=== PATIENT | male | born 1955 | race Caucasian/White ===

== ENCOUNTER 2022-01-07 09:11 | Inpatient (IN) | payer MEDICARE, SELFPAY ==
[2022-01-07] VITALS (10 sets, daily range): BP systolic 123–187; BP diastolic 63–96; PULSE 101–125; RESP 16–20; TEMP 36.8–37.4; O2SAT 93–97; BMI 28.0; BMI 27.1
--- NOTE | 2022-01-07 09:21 | HMH.EDEXTP ---
ED Disposition Clinical Impression: Gangrene of toe of right foot, Lactic acid acidosis, Cellulitis of foot associated with diabetes mellitus Osteomyelitis Qualifiers: Osteomyelitis type: unspecified type Osteomyelitis location: foot Laterality: right Qualified Code(s): M86.9 - Osteomyelitis, unspecified Diabetes Qualifiers: Diabetes mellitus type: other specified (including MERVAT) Diabetes mellitus alf insulin use: without exterminator termite use Diabetes mellitus complication status: with other specified complication Qualified Code(s): E13.69 - Other specified diabetes mellitus with other specified complication Sepsis Qualifiers: Sepsis type: sepsis due to unspecified organism Sepsis acute organ dysfunction status: without acute organ dysfunction Qualified Code(s): A41.9 - Sepsis, unspecified organism Disposition: Admitted As Inpatient Condition on Discharge: Serious Referrals: Provider,Referral, MD [Primary Care Provider] - - Critical Care Critical Care Time: Yes Attestation: On , the high probability of a clinically significant, sudden or life threatening deterioration of the following system(s) required my full and direct attention, intervention and personal management. The time I documented below is in addition to time spent performing reported procedures but includes the following listed in this critical care notation. Total Critical Care Time: 35 Vital system(s) involved:: Metabolic Failure My critical care processes included: Assessment & monitoring of V/S, Initial and Re-exams, Data Review/Interpretation, Coordinating Care, Medication Orders and management, Documentation Medical Decision Making - Medical Records Medical records reviewed: Yes: I reviewed the patient's medical records. - Darshan Inquiry Pt receiving controlled substance: No Vital Signs: 01/07/22 09:11 01/07/22 10:00 Temperature 98.3 F Temperature Source Oral Pulse Rate 117 H Pulse Rate [Brachial] 120 H Respiratory Rate 20 18 Blood Pressure 132/67 Blood Pressure [Right Arm] 154/87 H Blood Pressure Mean 88 Blood Pressure Mean [Right Arm] 109 Blood Pressure Source [Right Arm] Automatic Cuff 02 Sat by Pulse Oximetry 97 96 Oxygen Delivery Method Room Air Room Air - Lab Data Lab results reviewed: Yes: I reviewed the patient's lab results. Lab Results 01/07/22 09:30: WBC 25.2 H*, RBC 5.59, Hgb 16.8, Hct 52.9 H, MCV 94.5 H, MCH 30.1, MCHC 31.8, RDW 12.8, Plt Count 331, MPV 8.5, Neut % (Auto) 91.1 H, Lymph % (Auto) 3.1 L, [place] % (Auto) 5.3, Eos % (Auto) 0.2, Baso % (Auto) 0.4, Neut # (Auto) 23.0 H, Lymph # (Auto) 0.8, [place] # (Auto) 1.3 H, Eos # (Auto) 0.1, Baso # (Auto) 0.1 01/07/22 09:30: Sodium 130 L, Potassium 3.4 L, Chloride 92 L, Carbon Dioxide 16 L, Anion Gap 25.4 H, BUN 12, Creatinine 0.70, Estimated Creat Clear 109, Estimated GFR 113, Est GFR ( Amer) 137, Glucose 289 H, Calcium 9.4, Total Bilirubin 1.0, AST 24, ALT 22, Alkaline Phosphatase 145 H, Total Protein 7.5, Albumin 4.0, Globulin 3.5 H, Albumin/Globulin Ratio 1.1 01/07/22 09:30: Lactate 5.4 H Result diagrams: 01/07/22 09:30 01/07/22 09:30 Orders (Tests/Meds): ED MEDICATIONS Generic Name Dose Route Start Last Admin Trade Name Freq PRN Reason Stop Dose Admin Clindamycin Phosphate 900 mg in 50 mls @ 100 mls/hr 01/07/22 09:24 01/07/22 09:39 Clindamycin 900mg/50ml D5w Premix IV 01/21/22 09:23 100 mls/hr Q6H RONALD Administration Vancomycin/PEG/NADA/Lysine/Water 1.75 gm in 350 mls @ 175 mls/hr 01/07/22 09:45 01/07/22 10:04 Vancomycin 1.75gm/350ml (Peg) Premix IV 01/07/22 11:44 175 mls/hr ONCE ONE Administration Sodium Chloride 1,000 mls @ 999 mls/hr 01/07/22 10:15 Sod Chlor 0.9% 1000ml Bag IV 01/07/22 11:15 .Q1H1M RONALD Sodium Chloride 3,130 mls @ 1,565 mls/hr 01/07/22 10:06 01/07/22 10:12 Sod Chlor 0.9% 1000ml Bag 30 ml/kg infuse over 2 hr (3130 ml) 01/07/22 12:05 1,565 mls/hr IV Administration .[facility]H [facility]
--- NOTE | 2022-01-07 09:24 | XR_ITS ---
PROCEDURE INFORMATION: Exam: XR Right Foot Exam date and time: 01/07/2022 9:29 AM Age: 66 years old Clinical indication: Swelling, leg or foot; Additional info: Gangrene, in 2nd toe, black and bone exposed and open infection TECHNIQUE: Imaging protocol: Radiologic exam of the Right foot. Views: 3 or more views. COMPARISON: No relevant prior studies available. FINDINGS: Bones/joints: The 2nd distal phalanx is almost entirely eroded, consistent with acute osteomyelitis. There is also some periosteal reaction about the 2nd proximal phalanx. No acute fracture or malalignment. Moderate 1st MTP joint degenerative changes. Osteopenia. Calcaneal enthesopathy. Soft tissues: Normal. IMPRESSION: 1. There is evidence of acute osteomyelitis involving the 2nd distal phalanx, which is almost completely eroded. 2. Periosteal reaction about the 2nd proximal phalanx may also reflect some early changes of osteomyelitis.
--- NOTE | 2022-01-07 09:36 | PC.NURSE ---
xray at BS
--- NOTE | 2022-01-07 09:37 | PC.NURSE ---
XR AT BEDSIDE
--- NOTE | 2022-01-07 09:37 | PC.NURSE ---
called pharmacy regarding vanc dosing
--- NOTE | 2022-01-07 09:47 | PC.NURSE ---
PT MEDICATED PER EDY DEL REAL PROVIDED. FAMILY AT BEDSIDE. NO NEEDS AT THIS TIME
[2022-01-07 09:58] LABS: Basophils # 0.1 K/mm3 (0-0.2); Basophils % 0.4 % (0.1-2.0); Eosinophils # 0.1 K/mm3 (0.0-0.4); Eosinophils % 0.2 % (0.1-12.0); Hematocrit 52.9 % (42.0-52.0); Hemoglobin 16.8 g/dL (14.1-18.0); Lymphocytes # 0.8 K/mm3 (0.7-4.5); Lymphocytes % 3.1 % (10-50); Mean Corpuscular HGB Conc 31.8 g/dL (31.8-35.4); Mean Corpuscular Hemoglobin 30.1 pg (27.0-31.2); Mean Corpuscular Volume 94.5 fl (80-94); Mean Platelet Volume 8.5 fl (7.4-10.4); Monocytes # 1.3 K/mm3 (0.1-1.0); Monocytes % 5.3 % (1.7-9.3); Neutrophils % 91.1 % (37.0-80.0); Platelet Count 331 K/mm3 (142-424); Red Blood Count 5.59 M/mm3 (4.60-6.20); Red Cell Distribution Width 12.8 % (11.5-17.5); White Blood Count 25.2 K/mm3 (4.8-10.8)
[2022-01-07 10:00] LABS: Alanine Aminotransferase 22 U/L (12-78); Albumin/Globulin Ratio 1.1 (1.1-1.8); Alkaline Phosphatase 145 U/L (38-126); Anion Gap 25.4 mEq/L (5-15); Aspartate Amino Transferase 24 U/L (17-59); Blood Urea Nitrogen 12 mg/dl (9-20); Calcium 9.4 mg/dl (8.4-10.2); Carbon Dioxide 16 mmol/L (22.0-30.0); Chloride 92 mmol/L (98-107); Creatinine Clearance Estimated 109 mL/min (50-200); Estimated Glomerular Filt Rate 113 ml/min (>60); GFR (African American) 137 ML/MIN (>60); Globulin 3.5 g/dL (1.3-3.2); Glucose 289 mg/dl (74-100); Potassium 3.4 mmoL/L (3.5-5.1); Sodium 130 mmol/L (136-145); Total Protein,Serum 7.5 g/dl (6.3-8.2)
--- NOTE | 2022-01-07 10:02 | PC.NURSE ---
checked on pt a this time, pt states no needs at this time. Pt son at BS. will continue to monitor.
[2022-01-07 10:03] LABS: Lactic Acid 5.4 mmol/L (0.7-2.1)
--- NOTE | 2022-01-07 10:03 | PC.NURSE ---
notified ER of pt critical lactic acid result.
--- NOTE | 2022-01-07 10:06 | PC.NURSE ---
notified ER MD of pt need of sepsis IVF bolus of 30mL/kg. ER MD gave verbal order for IVF sepsis bolus per protocol.
--- NOTE | 2022-01-07 10:12 | PC.NURSE ---
contacted lab to check on status of CBC result, spoke with dora states specimen is being rerun but should be finished and resulted soon.
[2022-01-07 10:15] LABS: MANUAL DIFFERENTIAL MANUAL DIFFERENTIAL (MANUAL DIFF)
--- NOTE | 2022-01-07 10:15 | PC.NURSE ---
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
--- NOTE | 2022-01-07 10:17 | PC.NURSE ---
1012 SEPSIS BOLUS STARTED
--- NOTE | 2022-01-07 10:26 | PC.NURSE ---
Tam GORDILLO SPEAKING WITH DR. VARELA
[2022-01-07 10:27] LABS: Lymphocytes % 7 % (10-50); Monocytes % 7 % (2-9); Neutrophils % 86 % (42-76); Total Cells Counted 100
[2022-01-07 10:29] LABS: Platelet Estimate Normal
--- NOTE | 2022-01-07 10:31 | PC.NURSE ---
notified ER pt will need sepsis tissue reperfussion assessment
--- NOTE | 2022-01-07 10:36 | PC.NURSE ---
notified boiling house oiler of admission.
[2022-01-07 10:46] LABS: INR 1.21 (0.9-1.1); Prothrombin Time 13.5 seconds (10.1-12.5)
[2022-01-07 10:47] LABS: Hemoglobin A1C 9.4 % (4.0-6.0)
--- NOTE | 2022-01-07 11:06 | PC.NURSE ---
per lab staff is will approx 105 minutes until result of covid swab, states they are only able to run 1 test at a time.
--- NOTE | 2022-01-07 11:16 | HMH.PHACONS ---
- Pharmacy Consult Date: 01/07/22 Time: 11:16 Referring provider: DR. STALEY Reason for Consult:: VANCOMYCIN DOSING Allergies and ADEs:: Allergies Allergy/AdvReac Type Severity Reaction Status Date / Time Penicillins Allergy Unknown Unknown Verified 01/07/22 09:54 allergy reaction Home Medications:: Home Medications Medication Instructions Recorded Confirmed Type No Known Home Medications 01/07/22 01/07/22 History Height: 1.93 m Weight: 104.326 kg Laboratory Results:: Laboratory Results - last 24 hr 01/07/22 09:30: WBC 25.2 H*, RBC 5.59, Hgb 16.8, Hct 52.9 H, MCV 94.5 H, MCH 30.1, MCHC 31.8, RDW 12.8, Plt Count 331, MPV 8.5, Neut % (Auto) 91.1 H, Lymph % (Auto) 3.1 L, [place] % (Auto) 5.3, Eos % (Auto) 0.2, Baso % (Auto) 0.4, Neut # (Auto) 23.0 H, Lymph # (Auto) 0.8, [place] # (Auto) 1.3 H, Eos # (Auto) 0.1, Baso # (Auto) 0.1, Total Counted 100, Neutrophils % (Manual) 86 H, Lymphocytes % (Manual) 7 L, Monocytes % (Manual) 7, Platelet Estimate Normal 01/07/22 09:30: PT 13.5 H, INR 1.21 H, APTT 36.0 H 01/07/22 09:30: Sodium 130 L, Potassium 3.4 L, Chloride 92 L, Carbon Dioxide 16 L, Anion Gap 25.4 H, BUN 12, Creatinine 0.70, Estimated Creat Clear 109, Estimated GFR 113, Est GFR ( Amer) 137, Glucose 289 H, Calcium 9.4, Total Bilirubin 1.0, AST 24, ALT 22, Alkaline Phosphatase 145 H, Total Protein 7.5, Albumin 4.0, Globulin 3.5 H, Albumin/Globulin Ratio 1.1 01/07/22 09:30: Lactate 5.4 H 01/07/22 09:30: Hemoglobin A1c 9.4 H Assessment and Plan - Assessment and plan all Dx Assessment and Plan for all problems:: Age: 66 yo Serum creatinine: 1 mg/dL Height: 76.0 Inches Weight (kg): 104 Assessment: IBW (kg): 86.80 Dosing wt(kg): 104 Estimated Creatinine clearance (ml/min): 90.4 CRCL method: Cockcroft and Gault using ibw(default). Drug selected: Vancomycin Loading dose (mg): 0 Vd (liters): 83.2 (factor used: 0.8 L/kg) Pipo (hr-1): 0.079 Half life (hrs): 8.77 Recommended dose: 1750 mg Interval: 12 hrs Infusion time (hrs): 2.0 Predicted peak (mcg/mL): 31.8 Predicted trough (mcg/mL): 14.43 Total body weight is being used for vancomycin dosing. Recommendations: Give Vancomycin 1750 mg q 12 hrs with an expected Cpeak of 31.8 mcg/ml and an expected Ctrough of 14.43 mcg/ml. ----Vanco only - ignore for aminoglycosides----- CLvanco= 6.57 L/hr AUC 0-24 /KEEGAN Data: KEEGAN 0.5 mcg/mL: AUC/KEEGAN: 1065.4 KEEGAN 1.0 mcg/mL: AUC/KEEGAN: 532.7 --------- KEEGAN 1.5 mcg/mL: AUC/KEEGAN: 355.1 KEEGAN 2.0 mcg/mL: AUC/KEEGAN: 266.4 Thank you for the consult.
--- NOTE | 2022-01-07 11:16 | PC.NURSE ---
notified warehouse processor of staff waiting on covid swab result at this time, approx result time in swab is less than 105 minutes at this time. Per lab staff short supply covid swab kits are using other kits than take longer time to result. will continue to monitor.
--- NOTE | 2022-01-07 11:21 | PC.NURSE ---
checked on pt at this time, pt given glass of water per his request (okayed per LIBRA GORDILLO). will continue to monitor
--- NOTE | 2022-01-07 11:51 | PC.NURSE ---
updated pt on POC -waiting on covid swab result to get him upstairs to assigned room
--- NOTE | 2022-01-07 12:01 | PC.NURSE ---
REPORT GIVEN TO Eloina BECKER RN
--- NOTE | 2022-01-07 12:14 | PC.NURSE ---
DR. VARELA AT BEDSIDE
--- NOTE | 2022-01-07 12:21 | XR_ITS ---
PROCEDURE INFORMATION: Exam: XR Chest Exam date and time: 01/07/2022 12:28 PM Age: 66 years old Clinical indication: Pre-operative exam; Respiratory screening exam; Additional info: Preop TECHNIQUE: Imaging protocol: Radiologic exam of the chest. Views: 1 view. COMPARISON: No relevant prior studies available. FINDINGS: Lungs: No focal airspace disease. Pleural spaces: Unremarkable. No pleural effusion. No pneumothorax. Heart/Mediastinum: Cardiomediastinal silhouette is within normal limits. Bones/joints: Unremarkable. IMPRESSION: No acute cardiopulmonary abnormality.
--- NOTE | 2022-01-07 12:28 | ECG_ITS ---
APPROVED REPORT Exam: Resting ECG HR:114 bpm ECG Measurements Heart Rate 114 AXES NM 193 P 51 QRSd 92 QRS 42 QT 322 T 38 QTc 390 Conclusion SINUS TACHYCARDIA WITH OCCASIONAL SUPRAVENTRICULAR PREMATURE COMPLEXES NONSPECIFIC ST ELEVATION [0.05+ mV ST ELEVATION] ABNORMAL RHYTHM ECG UNCONFIRMED REPORT Electronically signed by : Arash Knutson MD 01/07/2022 21:18:00
--- NOTE | 2022-01-07 12:42 | PC.NURSE ---
ASSISTED TO [facility]
--- NOTE | 2022-01-07 12:45 | PC.NURSE ---
notified second floor staff, pt covid swab is getting resulted now per lab staff swab is negative.
--- NOTE | 2022-01-07 12:55 | PC.NURSE ---
pt being transported to second floor per WC per bernard,srna
--- NOTE | 2022-01-07 13:01 | PC.WOUNDNOTE ---
Right second toe right second toe right second toe
--- NOTE | 2022-01-07 13:07 | PC.NURSE ---
RN aware of elevated bp.
[2022-01-07 13:42] LABS: Reflex Lactic Add Lactic Reflex
--- NOTE | 2022-01-07 13:56 | HMH.HP ---
*Admission Date: 01/07/22 *Chief complaint: Foot pain *History of present illness: Mr. Hernandez is a 66-year-old white male who is generally been healthy does not have a primary care physician. His only reported history is that of gout. He presented to the ER today with complaints of right foot pain. States he has been having pain off and on for a long time but 10 days ago he injured his right second toe and since then has developed increased pain and swelling and redness of the toe and foot. On initial assessment in the ER, he had obvious gangrene of the right second toe and x-ray showed osteomyelitis with erosion of the distal phalanx. His white blood cell count is elevated 25,000 and lactic acid was greater than 5. The other significant finding on work-up is that of blood sugar elevated at 289. He has no history of diabetes. He is being admitted at this time for IV antibiotics, sliding scale insulin and podiatry consultation for amputation. As noted, he reports generally good health although does not follow with a primary care physician. He was not aware of being diabetic. He gives a history of having been treated for gout. He smokes a half a pack cigarettes per day. He admits to drinking beer daily. [facility] History Medical History: Denies:: Anxiety, Atherosclerotic Heart Disease, Diabetes Mellitus Type 2, Hypertension, Lung Disease *Have you ever received a pneumonia vaccine?: No *Have you received a flu vaccine this season?: No Other Medical History: Reports: Other (Gout). Denies: Thyroid Disease Other Surgeries: Yes: No Previous Surgery - *Social History Last grade of school completed: High school graduate Smoking Status: Current every day smoker Tobacco Type: cigarettes Alcohol Intake: current Alcohol Intake Frequency:: 3 or more drinks per day (beer) *Occupational Status:: employed ([employer]) Household Members: none *Travel in the last 8 weeks: None Family Hx:: No significant family history Review of Systems - Constitutional Denies chills, Denies fever(s) - Eyes Denies change in vision - ENT Denies bleeding gums, Denies hearing loss, Denies dizziness - *Cardiovascular Denies chest pain, Denies shortness of breath, Denies irregular heart rhythm - *Respiratory Denies chest congestion, Denies shortness of breath with activity - *Gastrointestinal Denies abdominal pain, Denies change in stools, Denies heartburn, Denies black, tarry stools - *Genitourinary Denies difficulty urinating, Denies urinary frequency - *Musculoskeletal Reports joint pain (See HPI), Denies muscle weakness - Integumentary/Breasts Denies change in skin color - *Neurologic Reports abnormal walking (See HPI), Denies confusion, Denies dizziness, Denies tremor(s) - Psychiatric Denies behavioral changes, Denies depression, Denies irritability - Endocrine Denies excessive sweating - Hematologic/Lymphatic Denies easy bleeding, Denies easy bruising - Allergic/Immunologic Denies seasonal runny nose, Denies throat swelling Meds Home Medications Medication Instructions Recorded Confirmed Type No Known Home Medications 01/07/22 01/07/22 History Allergies Allergy/AdvReac Type Severity Reaction Status Date / Time Penicillins Allergy Unknown Unknown Verified 01/07/22 09:54 allergy reaction Exam Vital signs and Labs for Last 24 Hours: Temp Pulse Resp BP Pulse Ox 98.4 F 125 H 18 182/96 H 95 01/07/22 13:06 01/07/22 13:06 01/07/22 13:06 01/07/22 13:06 01/07/22 13:06 Laboratory Results - last 24 hr 01/07/22 09:30: WBC 25.2 H*, RBC 5.59, Hgb 16.8, Hct 52.9 H, MCV 94.5 H, MCH 30.1, MCHC 31.8, RDW 12.8, Plt Count 331, MPV 8.5, Neut % (Auto) 91.1 H, Lymph % (Auto) 3.1 L, [place] % (Auto) 5.3, Eos % (Auto) 0.2, Baso % (Auto) 0.4, Neut # (Auto) 23.0 H, Lymph # (Auto) 0.8, [place] # (Auto) 1.3 H, Eos # (Auto) 0.1, Baso # (Auto) 0.1, Total Counted 100, Neutrophils % (Manual) 86 H, Lymphocytes % (
[2022-01-07 14:13] LABS: Lactic Acid Follow Up (RFLX 1) 3.8 mmol/L (0.7-2.1)
[2022-01-07 15:54] LABS: Erythrocyte Sedimentation Rate 53 mm/hr (0-20)
[2022-01-07 15:59] LABS: Reflex Lactic (2 hrs) Add Lactic Reflex
--- NOTE | 2022-01-07 16:18 | PC.NURSE ---
rn aware of elevated bp
[2022-01-07 16:42] LABS: Lactic Acid Follow up (RFLX 2) 2.1 mmol/L (0.7-2.1)
[2022-01-07 17:02] LABS: POC Glucose,Bedside 241 (70-110)
--- NOTE | 2022-01-07 18:33 | PC.NURSE ---
Patient admitted from ER for gangrene and sepsis. Fluid bolus finished once after patient admitted to floor. Patient's blood pressure has been high 180's, Dr. Leonora strong and lisinopril 10 mg given and started daily. Patient remained on room air. Complaints of pain in right foot noted and morphine give.
[2022-01-07 20:37] LABS: POC Glucose,Bedside 194 (70-110)
[2022-01-08] VITALS (21 sets, daily range): BP systolic 115–153; BP diastolic 57–87; PULSE 95–105; RESP 15–22; TEMP 36.1–37.3; O2SAT 92–99; BMI 27.1
--- NOTE | 2022-01-08 | US_ITS ---
FINAL REPORT CLINICAL HISTORY: GANGRENE/OSTEOMYLITIS RT 2ND TOE,HTN,DM,SMOKER,HX CVA FINDINGS: ANKLE-BRACHIAL PRESSURE INDICES Pressure indices are as follows: RIGHT LOWER EXTREMITY: Ankle-brachial pressure index: 1.0 Comments: Normal LEFT LOWER EXTREMITY: Ankle-brachial pressure index: 1.2 Comments: Normal CONCLUSION: No evidence of significant obstructive peripheral vascular disease of the lower extremities Reviewed, Interpreted and Dictated by Geovanny Rogers III, MD Transcribed by Kaylin Albrecht Authenticated and [facility]
--- NOTE | 2022-01-08 07:07 | P.CONPHA_ITS ---
[facility] Pharmacy VTE Monitoring - Patient Demographics Admission date: 01/07/22 Report Date: 01/08/22 Time: 07:07 Allergies/Adverse Reactions: Patient Allergies Penicillins Allergy (Unknown, Verified 01/07/22 09:54) Unknown allergy reaction Height: 1.93 m Weight: 101.333 kg Patient Problems: Current Active Problems Gangrene of toe of right foot (Acute) Osteomyelitis (Acute) Diabetes (Acute) Sepsis (Acute) Lactic acid acidosis (Acute) Cellulitis of foot associated with diabetes mellitus (Acute) New onset type 2 diabetes mellitus (Acute) Tobacco use disorder (Acute) ETOH abuse (Acute) - VTE Risk Labs: VTE Related Lab Results Hgb 16.8 g/dL (14.1-18.0) 01/07/22 09:30 Hct 52.9 % (42.0-52.0) H 01/07/22 09:30 Plt Count 331 K/mm3 (142-424) 01/07/22 09:30 PT 13.5 seconds (10.1-12.5) H 01/07/22 09:30 INR 1.21 (0.9-1.1) H 01/07/22 09:30 APTT 36.0 seconds (22.8-30.6) H 01/07/22 09:30 BUN 12 mg/dl (9-20) 01/07/22 09:30 Creatinine 0.70 mg/dl (0.66-1.25) 01/07/22 09:30 Estimated Creat Clear 109 mL/min (50-200) 01/07/22 09:30 Was VTE Risk Assessment Performed: Yes VTE Score: 2 VTE Risk Level: Very Low Risk - Prophylaxis VTE Prophylaxis Ordered?: Yes Types of VTE Prophylaxis: TEDS Knee High Location of Applied Device: Bilateral Lower Extremeties
[2022-01-08 07:28] LABS: Anion Gap 11.2 mEq/L (5-15); Blood Urea Nitrogen 10 mg/dl (9-20); Carbon Dioxide 25 mmol/L (22.0-30.0); Chloride 99 mmol/L (98-107); Creatinine Clearance Estimated 106 mL/min (50-200); Estimated Glomerular Filt Rate 167 ml/min (>60); GFR (African American) 202 ML/MIN (>60); Glucose 180 mg/dl (74-100); Potassium 3.2 mmoL/L (3.5-5.1); Sodium 132 mmol/L (136-145)
--- NOTE | 2022-01-08 07:29 | PC.NURSE ---
Pt a + o x4. Pt has not voiced any complaints tp staff. Left 2nd toe redressed, dsg CDI. Call light within reach
[2022-01-08 07:36] LABS: Basophils % 0.1 % (0.1-2.0); Lymphocytes # 0.7 K/mm3 (0.7-4.5); Red Cell Distribution Width 12.2 % (11.5-17.5)
[2022-01-08 07:42] LABS: Eosinophils % 0.1 % (0.1-12.0); Hematocrit 39.9 % (42.0-52.0); Lymphocytes % 3.4 % (10-50); Mean Corpuscular HGB Conc 36.7 g/dL (31.8-35.4); Mean Corpuscular Hemoglobin 31.9 pg (27.0-31.2); Mean Corpuscular Volume 86.9 fl (80-94); Mean Platelet Volume 8.1 fl (7.4-10.4); Monocytes % 5.2 % (1.7-9.3); Neutrophils # 17.4 K/mm3 (1.8-7.8); Neutrophils % 91.1 % (37.0-80.0); Platelet Count 242 K/mm3 (142-424); White Blood Count 19.1 K/mm3 (4.8-10.8)
[2022-01-08 07:44] LABS: Hemoglobin 14.7 g/dL (14.1-18.0); MANUAL DIFFERENTIAL MANUAL DIFFERENTIAL (MANUAL DIFF)
--- NOTE | 2022-01-08 08:14 | HMH.ORTHHP ---
*Admission Date: 01/07/22 <Brianna Gonzales 01/08/22 08:23> *Reason for consult:: Right DM foot infection, OM <Brianna Gonzales 01/08/22 08:23> *History of present illness: The patient is a 66 year-old male admitted on 01/07/22 for gangrene of the right second toe and osteomyelitis with erosion of the distal phalanx. On the initial assessment in ER his white blood cell count was elevated 25,000 and lactic acid was greater than 5. The other significant finding on work-up was that of blood sugar elevated at 289. He has no history of diabetes. He is being admitted at this time for IV antibiotics, sliding scale insulin and podiatry consultation for amputation. Patient does not follow with a primary care physician. He was not aware of being diabetic. He gives a history of having been treated for gout. He smokes a half a pack cigarettes per day. He admits to drinking beer daily. Patient was seen and evaluated by and dulce Goodman APRN at bedside, surgical consent was obtained, patient questions were addressed. Will keep patient NPO for surgery today. <Dulce Goodman - 01/08/22 08:44> [facility] History Medical History: Denies:: Anxiety, Atherosclerotic Heart Disease, Diabetes Mellitus Type 2, Hypertension, Lung Disease <Brianna Gonzales 01/08/22 08:23> *Have you ever received a pneumonia vaccine?: No <Brianna Gonzales 01/08/22 08:23> *Have you received a flu vaccine this season?: No <Brianna Gonzales 01/08/22 08:23> Other Medical History: Reports: Other (Gout). 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) <Janet,Brianna 01/08/22 08:23> Household Members: none <JanetBrianna 01/08/22 08:23> *Travel in the last 8 weeks: None <Alexa Gonzalesie 01/08/22 08:23> - Psychiatric History Pschychiatric History:: Denies:: Anxiety <Alexa Gonzalesie 01/08/22 08:23> Family Hx:: No significant family history <Alexa Gonzalesie 01/08/22 08:23> Review of Systems - Review of Systems Review of systems:: pertinent systems reviewed and negative unless documented below <Alexa Gonzalesie 01/08/22 08:23> - Constitutional Denies chills <Alexa Gonzalesie 01/08/22 08:23> - Eyes Denies blind spots <Alexa Gonzalesie 01/08/22 08:23> - ENT Denies abnormal hearing <JanetBrianna 01/08/22 08:23> - *Cardiovascular Denies chest pain <JanetBrianna 01/08/22 08:23> - *Respiratory Denies chest congestion <Janet,Brianna 01/08/22 08:23> - *Gastrointestinal Denies abdominal pain <JanetBrianna 01/08/22 08:23> - *Musculoskeletal Denies muscle cramps <Alexa Gonzalesie 01/08/22 08:23> - Integumentary/Breasts Reports hair loss (LE), Reports wounds (right 2nd toe gangrene) <JanetBrianna 01/08/22 08:23> - *Neurologic Reports abnormal walking (See HPI), Denies behavioral changes, Denies confusion, Denies dizziness, Denies tremor(s), Denies dizziness <Alexa Gonzalesie 01/08/22 08:23> - Endocrine Reports cold intolerance <Brianna Gonzales 01/08/22 08:23> Meds Home Medications Medication Instructions Recorded Confirmed Type No Known Home Medications 01/07/22 01/07/22 History <Dulce Goodman - 01/08/22 08:44> Allergies Allergy/AdvReac Type Severity Reaction Status Date / Time Penicillins Allergy Unknown Unknown Verified 01/07/22 09:54 allergy reaction <Dulce Goodman - 01/08/22 08:44> Exam Vital signs and Labs for Last 24 Hours: Temp Pulse Resp BP Pulse Ox 98.2 F 95 H 17
--- NOTE | 2022-01-08 08:27 | HMH.ACPN2 ---
<Meli Breen - Last Filed: 01/08/22 08:37> Internal Medicine - PN: Subj *Date: 01/08/22 *Time: 08:37 Interval history: Patient states he had minimal sleep last night due to pain in his right foot and frequent nursing interventions. He has not been hungry and has not been eating. He has been receiving morphine for the pain in his foot. He denies chest pain or shortness of breath. He is voiding QS. He is currently having ANNETTE performed. White blood cell count this morning is 19,100 with a hemoglobin of 14.7 and hematocrit of 39.9. Sugars are elevated and he remains on sliding scale insulin. Lactate has decreased to 2.1. Hemoglobin A1c is 9.4. Blood culture results are pending. Patient is to be seen by Dr. Gonzales Exam Vital signs and Labs for Last 24 Hours: Temp Pulse Resp BP Pulse Ox 98.2 F 95 H 17 151/69 H 95 01/08/22 08:00 01/08/22 08:00 01/08/22 08:00 01/08/22 08:00 01/08/22 08:00 Laboratory Results - last 24 hr 01/07/22 09:30: WBC 25.2 H*, RBC 5.59, Hgb 16.8, Hct 52.9 H, MCV 94.5 H, MCH 30.1, MCHC 31.8, RDW 12.8, Plt Count 331, MPV 8.5, Neut % (Auto) 91.1 H, Lymph % (Auto) 3.1 L, [place] % (Auto) 5.3, Eos % (Auto) 0.2, Baso % (Auto) 0.4, Neut # (Auto) 23.0 H, Lymph # (Auto) 0.8, [place] # (Auto) 1.3 H, Eos # (Auto) 0.1, Baso # (Auto) 0.1, Total Counted 100, Neutrophils % (Manual) 86 H, Lymphocytes % (Manual) 7 L, Monocytes % (Manual) 7, Platelet Estimate Normal 01/07/22 09:30: PT 13.5 H, INR 1.21 H, APTT 36.0 H 01/07/22 09:30: Sodium 130 L, Potassium 3.4 L, Chloride 92 L, Carbon Dioxide 16 L, Anion Gap 25.4 H, BUN 12, Creatinine 0.70, Estimated Creat Clear 109, Estimated GFR 113, Est GFR ( Amer) 137, Glucose 289 H, Calcium 9.4, Total Bilirubin 1.0, AST 24, ALT 22, Alkaline Phosphatase 145 H, Total Protein 7.5, Albumin 4.0, Globulin 3.5 H, Albumin/Globulin Ratio 1.1 01/07/22 09:30: Lactate 5.4 H 01/07/22 09:30: Hemoglobin A1c 9.4 H 01/07/22 09:30: C-Reactive Protein 306.0 H 01/07/22 13:50: Lactate 3.8 H 01/07/22 14:58: ESR 53 H 01/07/22 16:22: Lactate 2.1 01/07/22 16:48: POC Glucose 241 H 01/07/22 20:29: POC Glucose 194 H 01/08/22 06:23: WBC 19.1 H, RBC 4.60, Hgb 14.7 D, Hct 39.9 L, MCV 86.9, MCH 31.9 H, MCHC 36.7 H, RDW 12.2, Plt Count 242 D, MPV 8.1, Neut % (Auto) 91.1 H, Lymph % (Auto) 3.4 L, [place] % (Auto) 5.2, Eos % (Auto) 0.1, Baso % (Auto) 0.1, Neut # (Auto) 17.4 H, Lymph # (Auto) 0.7, [place] # (Auto) 1.0, Eos # (Auto) 0.0, Baso # (Auto) 0.0 01/08/22 06:23: Lactate 1.0 01/08/22 06:23: Sodium 132 L, Potassium 3.2 L, Chloride 99, Carbon Dioxide 25, Anion Gap 11.2, BUN 10, Creatinine 0.50 L D, Estimated Creat Clear 106, Estimated GFR 167, Est GFR ( Amer) 202 D, Glucose 180 H D, Calcium 9.0 I & O for Last 24 hours: Intake & Output 01/05/22 01/06/22 01/07/22 01/08/22 11:59 11:59 11:59 11:59 Intake Total 2445 / 2445 Output Total 800 / 800 Balance 1645 / 1645 Weight 230 lb 223 lb 6.4 oz Microbiology Reports for the Last 24 Hours: Microbiology 01/07/22 09:37 Nasopharyngeal Coronavirus COVID-19 PCR - Final - Constitutional no acute distress - *Routine Respiratory Exam Present: CTA bilaterally (Anteriorly and posteriorly) - *Routine Cardiovascular Exam Present: RRR - *Routine Abdominal Exam Present: soft, normoactive bowel sounds. Absent: tenderness, distended - *Routine Extremities Exam Present: edema (Right foot with erythema.) Comments: Second toe is black with foul odor. Also drainage noted. - *Routine Neurological Exam Present: alert, oriented X3 Assessment and Plan (1) Gangrene of toe of right foot Status: Acute Category: Medical Code(s): I96 - Gangrene, not elsewhere classified (2) Osteomyelitis Status: Acute Qualifiers: Osteomyelitis type: unspecified type Osteomyelitis location: foot Laterality: right Qualified Code(s): M86.9 - Osteomyelitis, unspecified Category: Medical Code(s): M86.9 - Osteomyelitis, unspecifi
--- NOTE | 2022-01-08 09:28 | HMH.CNCARD ---
History of Present Illness Consult date: 01/08/22 Requesting physician: Brianna Gonzales Consult reason: pre-op evaluation Chief complaint: Pain in right foot after trauma Additional Medical History:: 1. Hypertension, diagnosed many years ago with no recent treatment for the past 10 years 2. Tobacco use, 1 pack/day x 40 years 3. Newly diagnosed diabetes mellitus, 01/2022 4. 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 ANNETTE normal, 01/2022 4. 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 Patient noted to have dry gangrene with osteomyelitis with plans for surgery later today. Cardiology consulted for preop evaluation. ANNETTE noted to be normal. Patient denies any history of cardiac issues specifically no known heart attack and no exertional chest pain or shortness of breath. EKG is sinus tachycardia at [address]-T abnormalities. [facility] History Medical History: Reports:: Hypertension Denies:: Anxiety, Atherosclerotic Heart Disease, Diabetes Mellitus Type 2, Lung Disease *Have you ever received a pneumonia vaccine?: No *Have you received a flu vaccine this season?: No Other Medical History: Reports: Other (Gout). Denies: Thyroid Disease Other Surgeries: Yes: No Previous Surgery - *Social History Last grade of school completed: High school graduate Smoking Status: Current every day smoker Tobacco Type: cigarettes Alcohol Intake: current Alcohol Intake Frequency:: 3 or more drinks per day (beer) *Occupational Status:: employed ([employer]) Household Members: none *Travel in the last 8 weeks: None - Psychiatric History Pschychiatric History:: Denies:: Anxiety Family Hx:: No significant family history Meds Home Medications Medication Instructions Recorded Confirmed Type No Known Home Medications 01/07/22 01/07/22 History Allergies Allergy/AdvReac Type Severity Reaction Status Date / Time Penicillins Allergy Unknown Unknown Verified 01/07/22 09:54 allergy reaction Exam Vital signs and Labs for Last 24 Hours: Temp Pulse Resp BP Pulse Ox 98.2 F 95 H 17 151/69 H 95 01/08/22 08:00 01/08/22 08:00 01/08/22 08:00 01/08/22 08:00 01/08/22 08:00 Laboratory Results - last 24 hr 01/07/22 09:30: WBC 25.2 H*, RBC 5.59, Hgb 16.8, Hct 52.9 H, MCV 94.5 H, MCH 30.1, MCHC 31.8, RDW 12.8, Plt Count 331, MPV 8.5, Neut % (Auto) 91.1 H, Lymph % (Auto) 3.1 L, [place] % (Auto) 5.3, Eos % (Auto) 0.2, Baso % (Auto) 0.4, Neut # (Auto) 23.0 H, Lymph # (Auto) 0.8, [place] # (Auto) 1.3 H, Eos # (Auto) 0.1, Baso # (Auto) 0.1, Total Counted 100, Neutrophils % (Manual) 86 H, Lymphocytes % (Manual) 7 L, Monocytes % (Manual) 7, Platelet Estimate Normal 01/07/22 09:30: PT 13.5 H, INR 1.21 H, APTT 36.0 H 01/07/22 09:30: Sodium 130 L, Potassium 3.4 L, Chloride 92 L, Carbon Dioxide 16 L, Anion Gap 25.4 H, BUN 12, Creatinine 0.70, Estimated Creat Clear 109, Estimated GFR 113, Est GFR ( Amer) 137, Glucose 289 H, Calcium 9.4, Total Bilirubin 1.0, AST 24, ALT 22, Alkaline Phosphatase 145 H, Total Protein 7.5, Albumin 4.0, Globulin 3.5 H, Albumin/Globulin Ratio 1.1 01/07/22 09:30: Lactate 5.4 H 01/07/22 09:30: Hemoglobin A1c 9.4 H 01/07/22 09:30: C-Reactive Protein 306.0 H 01/07/22 13:50: Lactate 3.8 H 01/07/22 14:58: ESR 53 H 01/07/22 16:22: Lactate 2.1 01/07/22 16:48: POC Glucose 241 H 01/07/22 20:29: POC Glucose 194 H 01/08/22 06:23: WBC 19.1 H, RBC 4.60, Hgb 14.7 D, Hct 39.9 L, MCV 86.9, MCH 31.9 H, MCHC 36.7 H, RDW 12.2, Plt Count 242 D, MPV 8.1, Neut % (Auto) 91.1 H, Lymph % (Auto) 3.4 L, [place] % (Auto) 5.2, Eos % (Auto) 0.1, Baso % (Auto) 0.1, Neut # (Auto) 17.4 H, Lymph # (Auto) 0.7, [place] # (Auto) 1.0, Eos # (Auto) 0.0, Baso # (Auto) 0.0 01/08/22 06:23: Lactate 1.0 01/08/22 06:23: Sodium 132 L, Potassium 3.2 L, Chloride 99, Carbon Dioxide 25,
[2022-01-08 09:44] LABS: Eosinophils % 1 % (0-3); Lymphocytes % 6 % (10-50); Monocytes % 8 % (2-9); Neutrophils % 85 % (42-76); Total Cells Counted 100
[2022-01-08 09:45] LABS: Platelet Estimate Normal; RBC Morphology Normal
--- NOTE | 2022-01-08 10:17 | HMH.ORTHOCON ---
*Admission Date: 01/07/22 *Reason for consult:: Right DM foot infection, gangrene, OM *History of present illness: Podiatry consult. The patient is a 66 year-old male admitted on 01/07/22 for gangrene of the right second toe and osteomyelitis with erosion of the distal phalanx. On the initial assessment in ER his white blood cell count was elevated 25,000 and lactic acid was greater than 5. The other significant finding on work-up was that of blood sugar elevated at 289. He has no history of diabetes. Admits to not seeing doctor for ~10 years. He is being admitted at this time for IV antibiotics, sliding scale insulin and podiatry consultation for amputation. Patient does not follow with a primary care physician. He was not aware of being diabetic. He gives a history of having been treated for gout. He smokes a 1/2-1 pack cigarettes per day. He admits to drinking beer daily. Patient was seen and evaluated by Dr. Gonzales and Dulce Goodman APRN at bedside, surgical consent was obtained, patient questions were addressed. Will keep patient NPO for surgery today. [facility] History I have reviewed the patient's past medical history: Yes Medical History: Reports:: Hypertension Denies:: Anxiety, Atherosclerotic Heart Disease, Diabetes Mellitus Type 2, Lung Disease *Have you ever received a pneumonia vaccine?: No *Have you received a flu vaccine this season?: No Other Medical History: Reports: Other (Gout). Denies: Thyroid Disease Other Surgeries: Yes: No Previous Surgery - *Social History Last grade of school completed: High school graduate Smoking Status: Current every day smoker Tobacco Type: cigarettes Alcohol Intake: current Alcohol Intake Frequency:: 3 or more drinks per day (beer) *Occupational Status:: employed ([employer]) Household Members: none *Travel in the last 8 weeks: None - Psychiatric History Pschychiatric History:: Denies:: Anxiety Family Hx:: No significant family history Review of Systems - Review of Systems Review of systems:: pertinent systems reviewed and negative unless documented below - Constitutional Denies chills - Eyes Denies blind spots - ENT Denies abnormal hearing - *Cardiovascular Denies chest pain - *Respiratory Denies cough - *Gastrointestinal Denies abdominal pain - *Genitourinary Denies difficulty urinating - *Musculoskeletal Denies abnormal walking - Integumentary/Breasts Reports hair loss, Reports wounds (right 2nd toe) - *Neurologic Reports abnormal walking (See HPI), Denies abnormal hearing, Denies behavioral changes, Denies confusion, Denies dizziness, Denies tremor(s), Denies dizziness Meds Home Medications Medication Instructions Recorded Confirmed Type No Known Home Medications 01/07/22 01/07/22 History Allergies Allergy/AdvReac Type Severity Reaction Status Date / Time Penicillins Allergy Unknown Unknown Verified 01/07/22 09:54 allergy reaction Exam Vital signs and Labs for Last 24 Hours: Temp Pulse Resp BP Pulse Ox 98.2 F 95 H 17 151/69 H 95 01/08/22 08:00 01/08/22 08:00 01/08/22 08:00 01/08/22 08:00 01/08/22 08:00 Laboratory Results - last 24 hr 01/07/22 09:30: Total Counted 100, Neutrophils % (Manual) 86 H, Lymphocytes % (Manual) 7 L, Monocytes % (Manual) 7, Platelet Estimate Normal 01/07/22 09:30: PT 13.5 H, INR 1.21 H, APTT 36.0 H 01/07/22 09:30: Hemoglobin A1c 9.4 H 01/07/22 09:30: C-Reactive Protein 306.0 H 01/07/22 13:50: Lactate 3.8 H 01/07/22 14:58: ESR 53 H 01/07/22 16:22: Lactate 2.1 01/07/22 16:48: POC Glucose 241 H 01/07/22 20:29: POC Glucose 194 H 01/08/22 06:23: WBC 19.1 H, RBC 4.60, Hgb 14.7 D, Hct 39.9 L, MCV 86.9, MCH 31.9 H, MCHC 36.7 H, RDW 12.2, Plt Count 242 D, MPV 8.1, Neut % (Auto) 91.1 H, Lymph % (Auto) 3.4 L, Barry % (Auto) 5.2, Eos % (Auto) 0.1, Baso % (Auto) 0.1, Neut # (Auto) 17.4 H, Lymph # (Auto) 0.7, [place] # (Auto) 1.0, Eos # (Auto) 0.0, Baso # (Auto) 0.0, Total Counted 100, [place]
--- NOTE | 2022-01-08 11:56 | HMH.ANESCL ---
[facility] Anesthesia Checklist - Patient Identification Patient Identification: Arm Band - Structural Data Admitted From: Inpatient Planned Operative Procedure/s: I&D Right Foot, Right 2nd Toe Amputation Consent for Planned Operative Procedure(s) Verified: Yes Verified Documents: Surgical Consent, History and Physical - NPO Status Verified Time NPO: 00:00 - Additional verifications Anesthesia Reactions: No - Airway Assessment C-Spine Mobility Assessed: Yes (mp2) TMJ Mobility Assessed: Yes Dentition: Poor Dentition - Neurological Assessment Level of Consciousness: Awake, Alert - Anesthesia Plan Anesthesia Risk discussed: Yes Anesthesia Plan: Verified ASA Class: III Anesthesia Type: General [facility] History I have reviewed the patient's past medical history: Yes Medical History: Reports:: Hypertension Denies:: Anxiety, Atherosclerotic Heart Disease, Diabetes Mellitus Type 2, Lung Disease *Have you ever received a pneumonia vaccine?: No *Have you received a flu vaccine this season?: No Other Medical History: Reports: Other (Gout). Denies: Thyroid Disease Anesthesia experience/problems:: nac Other Surgeries: Yes: No Previous Surgery - *Social History Last grade of school completed: High school graduate Smoking Status: Current every day smoker Tobacco Type: cigarettes Alcohol Intake: current Alcohol Intake Frequency:: 3 or more drinks per day (beer) Substance Use Type: denies use *Occupational Status:: employed ([employer]) Household Members: none *Travel in the last 8 weeks: None - Psychiatric History Pschychiatric History:: Denies:: Anxiety Family Hx:: No significant family history
--- NOTE | 2022-01-08 13:18 | HMH.OPNOTE ---
Date of procedure: 01/08/22 Pre-op Diagnosis:: 1. Right 2nd toe gangrene 2. Right 2nd toe osteomyelitis 3. Right diabetic foot infection, cellulitis 4. Right ankle abscess Post-op Diagnosis:: Same Rule out necrotizing fasciitis Procedure performed:: 1. Right foot (multiple) incision and drainage (88684) 2. Right ankle abscess incision and drainage (79355) 3. Right 2nd toe amputation (14777) 4. Right foot wide deep irrigation and debridement (68792) 5. Application of antibiotic beads (73188) Surgeon:: Brianna Gonzales DPM [employer]:: Elbert Nava Anesthesia: GETA, local (30cc 0.5% marcaine plain) Estimated blood loss (mL): 20 Clinical Note:: Patient is a 66-year-old male who reports not going to the doctor for over 10 years. He admits to smoking 1 pack/day. Diagnosed with diabetes with an A1c of 9.4% at this admission. Radiographs of the right foot were reviewed and discussed with the patient. X-rays show erosion consistent with osteomyelitis of the right second toe. We discussed conservative versus surgical treatment options. Conservative treatment options for cellulitis include local wound care, oral and IV antibiotics. Discussed that patient would benefit from a wider and deeper shoe wear to accommodate the deformity. We discussed surgical intervention for amputation of the right second toe due to the gangrene and osteomyelitis. Patient understands that there is a chance that the toes can migrate to fill the gap or the foot may change shape after surgery. Patient also understands that they could have wound healing complications including delayed healing and infection. We discussed that if the wound does not heal, it is possible that they may need a more proximal amputation and could result in further loss of digits, loss of partial foot or loss of leg. We discussed the risks and benefits in great detail. Other surgical risks include: prolonged pain and swelling, further infection requiring oral or IV antibiotics, delay in healing of soft tissue or bone, nerve or blood vessel damage, CRPS/RSD, DVT, anesthesia complications, and even . All questions answered. Patient verbalized understanding. Consent obtained. Dr Lea for medical clearance. Pre-op labs: ESR, CRP, Ha1c, CBC, CMP, EKG, CXR reviewed. Operative findings:: Right second toe gangrene noted. There is exposed proximal phalanx. There was edema and erythema of the foot extending to the ankle. Incision was made over the medial ankle where patient had pain this morning. Incision was made full-thickness through skin subcutaneous tissue down to deep fascia. Purulence was immediately expressed. Wound abscess culture taken. Incision extended from 1 cm proximal to the medial malleolus to the navicular. The wound probed 3 cm deeply to the level of the talus and posterior ankle. Incision made over the dorsal lateral foot over the fourth metatarsal. Serous fluid expressed no purulence. Right second toe removed. There was malodor and significant skin sloughing, liquefactive necrosis and gangrene. The plantar second MPJ was obliterated. There was no intact plantar fascia to the first second and third toes as it was liquefied. The infection spread along the entire plantar fascia over 10 cm. Brown deal dishwater dirty looking malodorous drainage was expressed. Deep second MPJ cultures also taken. *This case took 35-40 mins longer than normal due to extensive infection, more dissection and extend of sinus tracking. Concern for extensive necrotic infection with differential diagnosis including gas gangrene versus necrotizing fasciitis. Plan to CT right foot today to evaluate for proximal infection/abscess. Plan for repeat incision and drainage and washout tomorrow with more proximal amputation. Operative note:: On this date and time patient was deemed an appropriate surgical candidate. With informed consent signed, the patient was taken to the operating theater. The patient was positioned supine. General
--- NOTE | 2022-01-08 13:25 | P.PN_ITS ---
[facility] Anesthesia Record Part I Intake, IV Amount: 1,000 Estimated blood loss (mL): 5 Urine output (mL): 0 Blood Pressure: 120/58 SaO2: 93 Pulse Rate: 104 Respiratory Rate: 16 Temperature: 97.2 F Patient is:: Drowsy, Stable Stable to PACU at:: 13:20
--- NOTE | 2022-01-08 13:35 | CT_ITS ---
FINAL REPORT CLINICAL HISTORY: Post op amp, abscess 2nd toe FINDINGS: CT LOWER EXTREMITY W & W/O CONTRAST Axial CT images were performed through the right foot before and after contrast administration. Coronal and sagittal reformatted images were submitted. This study was performed with techniques to keep radiation doses as low as reasonably achievable (ALARA). Individualized dose reduction techniques using automated exposure control or adjustment of mA and/or kV according to the patient's size were employed. There has been amputation of the 2nd digit. There are moderate degenerative changes at the 1st MTP joint. There are mild degenerative changes elsewhere. Multiple antibiotic beads are present. There are plantar, medial, and dorsal foot soft tissue defects. There is widespread subcutaneous edema or cellulitis. There is no focal fluid collection to suggest abscess. There is no abnormal contrast enhancement. IMPRESSION: Amputation of the 2nd digit with multiple antibiotic beads in place. Multiple soft tissue defects. Widespread subcutaneous edema or cellulitis. No findings to suggest abscess. Reviewed, Interpreted and Dictated by Geovanny Rogers III, MD Transcribed by Angel Borjas Authenticated and [facility]
[2022-01-08 13:51] LABS: POC Glucose,Bedside 183 (70-110)
--- NOTE | 2022-01-08 14:46 | SUR.PHASEI ---
LATE ENTRY 1345 BS obtained with results of 183. RJanet Nava CRNA notified. No new orders at this time.
--- NOTE | 2022-01-08 14:46 | SUR.PHASEI ---
LATE ENTRY 1345 called and provided detailed report to gina Sethi/surgical aide. gina Sethi/surgical aide is aware that pt will be going to CT post PACU phase and then transported to med/surg room. gina Sethi/surgical aide verbalized understanding. [address] by Sav Small and other rad staff member. vital signs stable. denies pain and resting comfortably in bed. Sav Small will transport pt back to med/surg room when CT is completed.
--- NOTE | 2022-01-08 14:58 | PC.NURSE ---
rounded on patient. sitting up in bed visiting with family. no questions or concerns with plan of care, or medicines at this time. medication education given on morning med pass
--- NOTE | 2022-01-08 15:57 | P.PN_ITS ---
[facility] Anesthesia Record Part II Discharge Time: 13:50 Destination: Medical Surgical Department PACU nurse assessment reviewed?: Yes Patient Condition:: Good Anesthesia Complications:: None Swallowing reflex intact?: Yes Cyanosis?: No Blood Pressure: 127/82 Pulse Rate: 97 Temperature: 97 F Mental Status: Alert & Oriented Pain level:: 0 Nausea and/or vomitting:: None Intake, IV Amount: 0
[2022-01-08 17:16] LABS: POC Glucose,Bedside 248 (70-110)
--- NOTE | 2022-01-08 21:02 | PC.NURSE ---
rounded on pt, pt used his urinal and i emptied it. will chart the output. I asked if they needed anything else they replied no. will check on pt throughout the night
[2022-01-08 21:27] LABS: Vancomycin,Trough 8.9 ug/mL (5.0-10.0)
--- NOTE | 2022-01-08 22:03 | PC.NURSE ---
Called Nightwatch to report Vanc trough 8.9, Sen reported to hang 22:00 dose.
[2022-01-09] VITALS (20 sets, daily range): BP systolic 120–160; BP diastolic 60–92; PULSE 93–107; RESP 16–22; TEMP 36.2–38; O2SAT 90–97; BMI 27.5
[2022-01-09 01:42] LABS: Chloride 100 mmol/L (98-107); Potassium 3.4 mmoL/L (3.5-5.1); Sodium 131 mmol/L (136-145)
[2022-01-09 01:45] LABS: Anion Gap 8.4 mEq/L (5-15); Blood Urea Nitrogen 12 mg/dl (9-20); Calcium 9.1 mg/dl (8.4-10.2); Carbon Dioxide 26 mmol/L (22.0-30.0); Creatinine Clearance Estimated 106 mL/min (50-200); Estimated Glomerular Filt Rate 167 ml/min (>60); GFR (African American) 202 ML/MIN (>60); Glucose 181 mg/dl (74-100)
[2022-01-09 02:26] LABS: Vancomycin,Peak 18.9 ug/ml (11-39)
[2022-01-09 06:33] LABS: Basophils # 0.1 K/mm3 (0-0.2); Basophils % 0.4 % (0.1-2.0); Eosinophils # 0.1 K/mm3 (0.0-0.4); Eosinophils % 0.4 % (0.1-12.0); Hematocrit 44.5 % (42.0-52.0); Hemoglobin 13.7 g/dL (14.1-18.0); Mean Corpuscular HGB Conc 30.8 g/dL (31.8-35.4); Mean Corpuscular Hemoglobin 29.1 pg (27.0-31.2); Mean Corpuscular Volume 94.3 fl (80-94); Mean Platelet Volume 8.7 fl (7.4-10.4); Monocytes # 1.2 K/mm3 (0.1-1.0); Monocytes % 6.3 % (1.7-9.3); Neutrophils % 87.9 % (37.0-80.0); Platelet Count 292 K/mm3 (142-424); Red Blood Count 4.71 M/mm3 (4.60-6.20); Red Cell Distribution Width 13.1 % (11.5-17.5); White Blood Count 19.3 K/mm3 (4.8-10.8)
[2022-01-09 06:40] LABS: MANUAL DIFFERENTIAL MANUAL DIFFERENTIAL (MANUAL DIFF)
[2022-01-09 06:42] LABS: Alanine Aminotransferase 30 U/L (12-78); Albumin Level 3.1 g/dl (3.5-5.0); Albumin/Globulin Ratio 0.9 (1.1-1.8); Alkaline Phosphatase 158 U/L (38-126); Anion Gap 12.2 mEq/L (5-15); Aspartate Amino Transferase 29 U/L (17-59); Bilirubin,Total 0.7 mg/dl (0.2-1.3); Blood Urea Nitrogen 13 mg/dl (9-20); Calcium 9.2 mg/dl (8.4-10.2); Carbon Dioxide 24 mmol/L (22.0-30.0); Chloride 99 mmol/L (98-107); Creatinine Clearance Estimated 107 mL/min (50-200); Estimated Glomerular Filt Rate 135 ml/min (>60); GFR (African American) 164 ML/MIN (>60); Globulin 3.4 g/dL (1.3-3.2); Glucose 186 mg/dl (74-100); Potassium 3.2 mmoL/L (3.5-5.1); Sodium 132 mmol/L (136-145); Total Protein,Serum 6.5 g/dl (6.3-8.2)
[2022-01-09 06:50] LABS: C-Reactive Protein 289.4 mg/L (0-4)
[2022-01-09 06:54] LABS: POC Glucose,Bedside 181 (70-110)
[2022-01-09 07:20] LABS: Erythrocyte Sedimentation Rate 61 mm/hr (0-20)
--- NOTE | 2022-01-09 07:27 | PC.NURSE ---
Uneventful shift. Pt c/o pain in right foot x1. PRN MOrphine administered, pt states favorable results. Call light within reach
[2022-01-09 07:41] LABS: Lymphocytes % 11 % (10-50); Monocytes % 3 % (2-9); Neutrophils % 86 % (42-76); Total Cells Counted 100
[2022-01-09 07:42] LABS: Platelet Estimate Normal; RBC Morphology Normal
--- NOTE | 2022-01-09 08:14 | HMH.ACPN2 ---
<Santa Johnson - Last Filed: 01/09/22 08:14> Internal Medicine - PN: Subj *Date: 01/09/22 *Time: 08:14 Interval history: Patient states he had difficulty sleeping due to the pain on his foot. He is n.p.o. this morning for possibly more surgery. He denies any other pain. Exam Vital signs and Labs for Last 24 Hours: Temp Pulse Resp BP Pulse Ox 98.2 F 95 H 18 148/79 H 96 01/09/22 04:00 01/09/22 04:00 01/09/22 04:00 01/09/22 04:00 01/09/22 04:00 Laboratory Results - last 24 hr 01/08/22 06:23: Total Counted 100, Neutrophils % (Manual) 85 H, Lymphocytes % (Manual) 6 L, Monocytes % (Manual) 8, Eosinophils % (Manual) 1, Platelet Estimate Normal, RBC Morphology Normal 01/08/22 13:44: POC Glucose 183 H 01/08/22 16:25: POC Glucose 248 H 01/08/22 20:37: Vancomycin Trough 8.9 01/09/22 01:25: Vancomycin Peak 18.9 01/09/22 01:25: Sodium 131 L, Potassium 3.4 L, Chloride 100, Carbon Dioxide 26, Anion Gap 8.4, BUN 12, Creatinine 0.50 L, Estimated Creat Clear 106, Estimated GFR 167, Est GFR ( Amer) 202, Glucose 181 H, Calcium 9.1 01/09/22 06:00: WBC 19.3 H, RBC 4.71, Hgb 13.7 L, Hct 44.5, MCV 94.3 H, MCH 29.1, MCHC 30.8 L, RDW 13.1, Plt Count 292, MPV 8.7, Neut % (Auto) 87.9 H, Lymph % (Auto) 5.0 L, [place] % (Auto) 6.3, Eos % (Auto) 0.4, Baso % (Auto) 0.4, Neut # (Auto) 17.0 H, Lymph # (Auto) 1.0, [place] # (Auto) 1.2 H, Eos # (Auto) 0.1, Baso # (Auto) 0.1, Total Counted 100, Neutrophils % (Manual) 86 H, Lymphocytes % (Manual) 11, Monocytes % (Manual) 3, Platelet Estimate Normal, RBC Morphology Normal 01/09/22 06:00: Sodium 132 L, Potassium 3.2 L, Chloride 99, Carbon Dioxide 24, Anion Gap 12.2, BUN 13, Creatinine 0.60 L, Estimated Creat Clear 107, Estimated GFR 135, Est GFR ( Amer) 164, Glucose 186 H, Calcium 9.2, Total Bilirubin 0.7, AST 29, ALT 30 D, Alkaline Phosphatase 158 H, C-Reactive Protein 289.4 H, Total Protein 6.5, Albumin 3.1 L, Globulin 3.4 H, Albumin/Globulin Ratio 0.9 L 01/09/22 06:00: ESR 61 H 01/09/22 06:01: POC Glucose 181 H I & O for Last 24 hours: Intake & Output 01/06/22 01/07/22 01/08/22 01/09/22 11:59 11:59 11:59 11:59 Intake Total 2445 / 2445 1240 / 1240 Output Total 800 / 800 660 / 660 Balance 1645 / 1645 580 / 580 Weight 230 lb 223 lb 6.4 oz 226 lb 2 oz Microbiology Reports for the Last 24 Hours: Microbiology 01/08/22 12:10 Ankle,Right Gram Stain - Final 01/08/22 12:19 Foot,Right - Right Second Gram Stain - Final - Constitutional no acute distress - *Routine Respiratory Exam Present: CTA bilaterally - *Routine Cardiovascular Exam Present: RRR - *Routine Abdominal Exam Present: soft, normoactive bowel sounds. Absent: tenderness - *Routine Extremities Exam Absent: cyanosis, clubbing, edema - *Routine Skin Exam Comments: Right foot with dressing in place, there is some drainage on the [place] bandage - *Routine Neurological Exam Present: alert, oriented X3 Assessment and Plan (1) Gangrene of toe of right foot Status: Acute Category: Medical Code(s): I96 - Gangrene, not elsewhere classified (2) Osteomyelitis Status: Acute Qualifiers: Osteomyelitis type: unspecified type Osteomyelitis location: foot Laterality: right Qualified Code(s): M86.9 - Osteomyelitis, unspecified Category: Medical Code(s): M86.9 - Osteomyelitis, unspecified (3) Lactic acid acidosis Status: Acute Category: Medical Code(s): E87.2 - Acidosis (4) Sepsis Status: Acute Qualifiers: Sepsis type: sepsis due to unspecified organism Sepsis acute organ dysfunction status: without acute organ dysfunction Qualified Code(s): A41.9 - Sepsis, unspecified organism Category: Medical Code(s): A41.9 - Sepsis, unspecified organism (5) New onset type 2 diabetes mellitus Status: Acute Category: Medical Code(s): E11.9 - Type 2 diabetes mellitus without complications (6) Tobacco use disorder Status: Acute Category: Medical Code(s):
--- NOTE | 2022-01-09 09:12 | HMH.ORTHPN ---
Subjective Date: 01/09/22 Time: 08:40 Principal diagnosis: Right gas gangrene infection Interval history: Patient is resting comfortably at the bedside. He is n.p.o. for surgery today. Patient reports some pain to the right foot. Discussed results of surgical findings and the need for further debridement, amputation, and incision and drainage for limb salvage purposes. I explained the new CT does show that there are pockets of gas throughout the foot as well as the ankle. This necessitates surgery in order to prevent further amputation and loss of limb more proximal. Also discussed postop follow-up including need for PICC, IV abx and daily dressing changes. Discussed social situation. 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 He is looking at long-term versus disability. He lives locally in [place] [address] from the [facility]. His son Otoniel can help out around the house. Otoniel's contact information [phone]. PN: Obj Ex Vital signs: Temp Pulse Resp BP Pulse Ox 98.1 F 93 H 16 155/92 H 96 01/09/22 08:00 01/09/22 08:00 01/09/22 08:00 01/09/22 08:00 01/09/22 08:00 - Constitutional no acute distress - Routine HEENT Exam Head: Present: normocephalic - Routine Neck Exam Present: supple - Routine Cardiovascular Exam Present: RRR - Routine Abdominal Exam Present: soft - Routine Extremities Exam Present: edema (improved to RLE), pulses intact (weakly palpable DP), amputation - Detailed Lower Extremity Exam Foot/Toes: Right amputation (2nd toe) Bottom foot image: 1 - R 2nd toe amp. I&D to medial ankle, dorsal lateral foot and plantar 2nd met along plantar fascia. Some bleeding and drainage noted. Dusky changes to right 2nd amp skin. Pain to right medial ankle, lateral ankle, achilles, dorsal midfoot and plantar foot. Progress Note: A&P (1) Gangrene of toe of right foot Status: Acute (2) Osteomyelitis Status: Acute (3) Lactic acid acidosis Status: Acute (4) Sepsis Status: Acute (5) New onset type 2 diabetes mellitus Status: Acute (6) Tobacco use disorder Status: Acute (7) ETOH abuse Status: Acute (8) Abscess of right foot Status: Acute Assessment and Plan for All Diagnoses:: CT right foot 01/08/[address] shows areas of antibiotic bead insertion. There is also several areas of openings from incision and drainage sites. There is also several pockets of gas throughout the foot and ankle. Report noted impression: Amputation of the second digit with multiple antibiotic beads in place. Multiple soft tissue defects. Widespread subcutaneous edema or cellulitis. No findings to suggest abscess. Microbiology 01/08/22 12:19 Foot,Right - Right Second Gram Stain - Final 01/08/22 12:10 Ankle,Right Gram Stain - Final Laboratory Tests 01/09/22 01/09/22 01/09/22 06:00 06:00 06:00 WBC 19.3 H Neut % (Auto) 87.9 H Neutrophils % (Manual) 86 H ESR 61 H Potassium 3.2 L Creatinine 0.60 L Glucose 186 H C-Reactive Protein 289.4 H We discussed conservative versus surgical treatment options. Concern over the extensive soft tissue destruction during surgery yesterday. Labs are still elevated with CRP over 286. Likely this is consistent with gas gangrene or necrotizing fasciitis. Conservative treatment options for cellulitis include local wound care, oral and IV antibiotics. Discussed that patient will need short fracture boot for partial weightbearing status postop with crutches or walker. We discussed surgical intervention for amputation of the right forefoot/midfoot due to the gas gangrene, osteomyelitis and lack of soft tissue coverage. Patient understands that there is a chance that the foot may change shape after surgery. Patient also understands that they could have wound healing complications including delayed heal
--- NOTE | 2022-01-09 10:39 | HMH.PHACONS ---
- Pharmacy Consult Date: 01/09/22 Time: 10:39 Referring provider: DR. VARELA Reason for Consult:: VANCOMYCIN LEVELS AND DOSE CHANGE Allergies and ADEs:: Allergies Allergy/AdvReac Type Severity Reaction Status Date / Time Penicillins Allergy Unknown Unknown Verified 01/07/22 09:54 allergy reaction Home Medications:: Home Medications Medication Instructions Recorded Confirmed Type No Known Home Medications 01/07/22 01/07/22 History Height: 1.93 m Weight: 102.569 kg Laboratory Results:: Laboratory Results - last 24 hr 01/08/22 13:44: POC Glucose 183 H 01/08/22 16:25: POC Glucose 248 H 01/08/22 20:37: Vancomycin Trough 8.9 01/09/22 01:25: Vancomycin Peak 18.9 01/09/22 01:25: Sodium 131 L, Potassium 3.4 L, Chloride 100, Carbon Dioxide 26, Anion Gap 8.4, BUN 12, Creatinine 0.50 L, Estimated Creat Clear 106, Estimated GFR 167, Est GFR ( Amer) 202, Glucose 181 H, Calcium 9.1 01/09/22 06:00: WBC 19.3 H, RBC 4.71, Hgb 13.7 L, Hct 44.5, MCV 94.3 H, MCH 29.1, MCHC 30.8 L, RDW 13.1, Plt Count 292, MPV 8.7, Neut % (Auto) 87.9 H, Lymph % (Auto) 5.0 L, [place] % (Auto) 6.3, Eos % (Auto) 0.4, Baso % (Auto) 0.4, Neut # (Auto) 17.0 H, Lymph # (Auto) 1.0, [place] # (Auto) 1.2 H, Eos # (Auto) 0.1, Baso # (Auto) 0.1, Total Counted 100, Neutrophils % (Manual) 86 H, Lymphocytes % (Manual) 11, Monocytes % (Manual) 3, Platelet Estimate Normal, RBC Morphology Normal 01/09/22 06:00: Sodium 132 L, Potassium 3.2 L, Chloride 99, Carbon Dioxide 24, Anion Gap 12.2, BUN 13, Creatinine 0.60 L, Estimated Creat Clear 107, Estimated GFR 135, Est GFR ( Amer) 164, Glucose 186 H, Calcium 9.2, Total Bilirubin 0.7, AST 29, ALT 30 D, Alkaline Phosphatase 158 H, C-Reactive Protein 289.4 H, Total Protein 6.5, Albumin 3.1 L, Globulin 3.4 H, Albumin/Globulin Ratio 0.9 L 01/09/22 06:00: ESR 61 H 01/09/22 06:01: POC Glucose 181 H Medical History: Reports:: Hypertension Denies:: Anxiety, Atherosclerotic Heart Disease, Diabetes Mellitus Type 2, Lung Disease Assessment and Plan (1) Gangrene of toe of right foot Status: Acute Category: Medical Code(s): I96 - Gangrene, not elsewhere classified (2) Osteomyelitis Status: Acute Qualifiers: Osteomyelitis type: unspecified type Osteomyelitis location: foot Laterality: right Qualified Code(s): M86.9 - Osteomyelitis, unspecified Category: Medical Code(s): M86.9 - Osteomyelitis, unspecified (3) Lactic acid acidosis Status: Acute Category: Medical Code(s): E87.2 - Acidosis (4) Sepsis Status: Acute Qualifiers: Sepsis type: sepsis due to unspecified organism Sepsis acute organ dysfunction status: without acute organ dysfunction Qualified Code(s): A41.9 - Sepsis, unspecified organism Category: Medical Code(s): A41.9 - Sepsis, unspecified organism (5) New onset type 2 diabetes mellitus Status: Acute Category: Medical Code(s): E11.9 - Type 2 diabetes mellitus without complications (6) Tobacco use disorder Status: Acute Category: Medical Code(s): F17.200 - Nicotine dependence, unspecified, uncomplicated (7) ETOH abuse Status: Acute Category: Social Hx Code(s): F10.10 - Alcohol abuse, uncomplicated (8) Abscess of right foot Status: Acute Category: Medical Code(s): L02.611 - Cutaneous abscess of right foot - Assessment and plan all Dx Assessment and Plan for all problems:: PATIENT'S VANCOMCYIN TROUGH AND PEAK LEVELS WAS 8.9 MCG/ML AND 18.9 MCG/ML, RESPECTIVELY. RECOMMEND INCREASING VANCOMYCIN FROM 1750 MG Q12H TO 2000 MG Q12H.
--- NOTE | 2022-01-09 12:00 | HMH.PTEV ---
Physical Therapy Evaluation Rehab PT IP Evaluation Start: 01/08/22 11:55 Freq: ONCE Status: Active Protocol: Document 01/09/22 11:55 PHORNE (Rec: 01/09/22 12:00 PHORNE [id number]) Subjective/History History History 66 yowm adm to [facility] for R foot I&D now S/P R 2nd toe amputation with I&D to the ankle. Pt is scheduled for further OR this date. He reports he is generally independent with all mobility at baseline and lives alone. Subjective Subjective Pt reports minimal c/o pain in the R foot. Rehab PT IP Eval Objective Appearance Patient Behavior Appropriate Patient Orientation Person,Place,Time Difficulty following instructions none Speech Pattern Clear Ambulation Patient Able to Ambulate Yes Ambulation Observation IP General Gait Pattern Observation Antalgic Gait,Decrease Weight Bear (R) Ambulation Distance (feet) 25 Ambulation Assistive Device Standard Walker Ambulation Ability Supervision/Stand by Balance Ability to Arise Able, uses arms to help Sitting Balance Steady, safe Standing Balance Steady, wide stance Dynamic Sitting Balance Ability Good Dynamic Standing Balance Ability Good Transfers Bed Transfer Ability Supervision/Stand by Chair Transfer Ability Supervision/Stand by Sit to Stand Bed Transfer Ability Supervision/Stand by Sit to Stand Chair Transfer Ability Supervision/Stand by Rehab PT IP prob,goals,plan Problems Date of Evaluation: 01/09/22 PT IP Problems Transfers,Gait Rehab Potential Rehab Potential Good Equipment Needs Assistive Devices Rolling / Wheeled Walker Plan PT Intervention Plan Transfers,Gait,Therapeutic Exercise PT Plan Frequency BID Duration LOS Discharge Goals Bed Transfer Ability Independent Sit to Stand Chair Transfer Ability Independent Ambulation Assistive Device Standard Walker Ambulation Distance (feet) 40 Discharge Plan PT Discharge Plan Pt is currently appropriate to return home once medically stable. Recommend walker for home use to aid mobility and maintain pt WB status. G -code Required No Eval Complexity Eval Charge Codes 28806 - Moderate Complexity
--- NOTE | 2022-01-09 15:39 | XR_ITS ---
FINAL REPORT CLINICAL HISTORY: RIGHT METATARSAL AMPUTATION FINDINGS: FLUORO TIME PROCEDURE: Fluoroscopy in the operating room. Fluoroscopy time was provided by the radiology department for the clinical service. One film was obtained. Fluoroscopy exposure time: 0.20 minutes IMPRESSION: See above Reviewed, Interpreted and Dictated by Geovanny Rogers III, MD Transcribed by Kaylin Albrecht Authenticated and [facility]
--- NOTE | 2022-01-09 16:53 | XR_ITS ---
PROCEDURE INFORMATION: Exam: XR Right Foot Exam date and time: 01/09/2022 5:09 PM Age: 66 years old Clinical indication: Device placement; Other: Post op amputation; Prior surgery; Additional info: Post surgical TECHNIQUE: Imaging protocol: Radiologic exam of the Right foot. Views: 3 or more views. COMPARISON: SD XR FOOT RT 2V 01/09/2022 3:30 PM FINDINGS: Tubes, catheters and devices: Antibiotic beads. Surgical drain. Bones/joints: Amputation of the foot at the level of the TMT joint. Evaluation of osseous structures is limited by overlying soft tissues and postsurgical change. Probable mild osteolysis of a midfoot bone along the amputation margin, which is only well seen on the lateral image. This is poorly evaluated, but osteomyelitis is not excluded. Plantar calcaneal spur. Soft tissues: Soft tissue swelling and soft tissue air, presumably related to a recent procedure. Skin erich. IMPRESSION: Amputation of the foot at the level of the TMT joint. Probable mild osteolysis of a midfoot bone(s) along the amputation margin, which is only well seen on the lateral image. This is poorly evaluated, but osteomyelitis is not excluded.
--- NOTE | 2022-01-09 17:00 | HMH.OPNOTE ---
Date of procedure: 01/09/22 Pre-op Diagnosis:: 1. Right foot gas gangrene 2. Right 2nd toe osteomyelitis 3. Right diabetic foot infection, cellulitis 4. Right ankle abscess Post-op Diagnosis:: Same Procedure performed:: 1. Right foot (multiple) incision and drainage 2. Right ankle abscess incision and drainage 3. Right midfoot amputation (Lisfranc disarticulation) 4. Right foot wide deep irrigation and debridement 5. Application of antibiotic beads 6. Extensive soft tissue rearrangement/advancement Surgeon:: Brianna Gonzales DPM AUTOMOTIVE FINANCE MANAGER:: Donnie Meredith Anesthesia: LMA Estimated blood loss (mL): 30 Clinical Note:: This is a planned staged surgery. Patient underwent I&D and right second toe amputation 01/08/2022. Given the extensive nature of the infection yesterday, decision was made to plan to take this patient back to surgery today for repeat incision and drainage and midfoot amputation. We discussed conservative versus surgical treatment options. Concern over the extensive soft tissue destruction during surgery yesterday. Labs are still elevated with CRP over 286. Likely this is consistent with gas gangrene or necrotizing fasciitis. Conservative treatment options for cellulitis include local wound care, oral and IV antibiotics. Discussed that patient will need short fracture boot for partial weightbearing status postop with crutches or walker. We discussed surgical intervention for amputation of the right forefoot/midfoot due to the gas gangrene, osteomyelitis and lack of soft tissue coverage. Patient understands that there is a chance that the foot may change shape after surgery. Patient also understands that they could have wound healing complications including delayed healing and infection. We discussed that if the wound does not heal, it is possible that they may need a more proximal amputation and could result in further loss of partial foot or loss of leg. We discussed the risks and benefits in great detail. Other surgical risks include: prolonged pain and swelling, further infection requiring oral or IV antibiotics, delay in healing of soft tissue or bone, nerve or blood vessel damage, CRPS/RSD, DVT, anesthesia complications, and even . All questions answered. Patient verbalized understanding. Consent obtained. Discussed plan of care with Dr. Lea. Operative findings:: Right forefoot gangrene noted. There is exposed 1-3rd metatarsals. There was less edema and erythema of foot extending to the ankle. Incision was made full-thickness through skin subcutaneous tissue down to deep fascia and bones, at the level of the metatarsal and cuneiform joints. The remaining toes and metatarsals were removed in total. Separate incisions were made over the medial ankle, lateral ankle, dorsal midfoot full thickness to bone-talus. Thick white creamy purulence was immediately expressed from subtalar and ankle joints, medial worse than lateral. Wound abscess culture taken. The ankle incision tracked about 10 cm proximally of the posterior tibial tendon. Depth was 3 cm. Purulent drainage expressed from the posterior ankle, anterior ankle, medial and lateral ankle and subtalar joint. Purulence also expressed from the Lisfranc disarticulation site. No tracking of the peroneal tendons laterally. Plantarly the previous incision was reexplored. Plantar soft tissue had significant infection. There was malodor and significant skin sloughing, liquefactive necrosis and gangrene. Brown deal dishwater dirty looking malodorous drainage was expressed from the plantar foot. Deep foot wound cultures also taken. The entire plantar medial foot was filleted open with exposed anatomy including tendons, muscles and bones. *This case took 45 mins longer than normal due to extensive infection, more dissection and extend of sinus tracking. Plan for dressing change per podiatry in the a.m., n.p.o. after midnight. If wound has not significantly improved we will plan for repeat washout
--- NOTE | 2022-01-09 17:04 | HMH.ANESI ---
[facility] Anesthesia Record Part I Intake, IV Amount: 1,000 Estimated blood loss (mL): 30 Urine output (mL): 0 Blood Pressure: 120/61 SaO2: 94 Pulse Rate: 107 Respiratory Rate: 22 Temperature: 99.2 F Patient is:: Awake Stable to PACU at:: 16:55
[2022-01-09 17:08] LABS: POC Glucose,Bedside 158 (70-110)
--- NOTE | 2022-01-09 17:16 | PC.NURSE ---
1701-checked fsbs with results of 158 1702-radiology at bedside
--- NOTE | 2022-01-09 17:38 | PC.NURSE ---
1723- MD at bedside 1725-detailed report called to AMBAR Martínez 1728-pt transported to 2nd floor room 214 via hospital bed w/ember rails up and left in care of AMBAR Martínez with bed locked in lowest position, vss, pt stable
[2022-01-09 19:29] LABS: POC Glucose,Bedside 179 (70-110)
--- NOTE | 2022-01-09 23:00 | PC.NURSE ---
2300 it was noted that pts operative site was seeping bloody drainage through bandage, moderate amount noted on sheets and noted bleeding through luis wrap; reinforced dressing with 4x4's; abd; luis wrap.
[2022-01-10] VITALS (14 sets, daily range): BP systolic 119–166; BP diastolic 50–98; PULSE 90–102; RESP 16–20; TEMP 36.7–37.1; O2SAT 90–97; BMI 27.2
--- NOTE | 2022-01-10 | IR_ITS ---
APPROVED REPORT Patient Location: Inpatient Operations Technician: REGINA Tejada RT (R) PROCEDURES Right radial arterial access Catheter placement in the right external iliac artery Right external iliac artery antegrade angiogram with unilateral runoff to the right foot Bare-metal stent deployment to the right superficial femoral artery Left femoral arterial access Drug-coated balloon angioplasty to the PT trunk Drug coated balloon angioplasty to the posterior tibialis artery INDICATION [place] claudication class V, Limb threatening ischemia, Peripheral artery disease with atherosclerosis in the SFA PT trunk posterior tibialis artery, Informed consent was obtained prior to the procedure. COMPLICATIONS None Estimated Blood Loss: Less than 10 ML TECHNIQUE 1% lidocaine used to anesthetize the right anterior aspect of the right wrist. The right radial artery was accessed via the central technique and an arterial cocktail using 5000U heparin, 2.5 mg verapamil, 1mg lidocaine and 800mcg nitroglycerin into the right radial sheath intra-arterially. A PV multi curve catheter was then placed into the right external iliac artery and antegrade angiography with runoff was performed. Following this therapeutic heparin was administered and a long 400 cm glide wire was placed distally. An 8 mm x 100 mm self-expanding stent was deployed followed by 7 mm x 80 mm balloon deployed at 24 douglas to post dilate. Repeat angiography demonstrated significant improvement in the SFA with improved flow down the anterior tibialis artery. At this point it was decided the PT trunk and the posterior tibialis artery required revascularization therefore 1% lidocaine was used anesthetize the left groin the left femoral arteries accessed via the center technique and a 6 [place] sheath was placed in left femoral artery. A rim catheter was placed in the distal abdominal aorta and used to cannulate the right common iliac artery followed by a wire. An advantage wire was placed distally in the SFA and an additional 8 mm x 20 mm self-expanding stent was deployed in the proximal portion of the first 8 mm stent which was deployed. Following this an 8 mm x 80 mm balloon was deployed up and down the entire length of the SFA stents and deployed at 12 douglas. A 300 cm advantage wire was then placed into the posterior tibialis artery and a 4 mm x 27 mm cardiac balloon was deployed at 20 douglas for 1 minute. Following this a 5 mm x 40 mm drug-coated balloon was then placed in the PT trunk extending into the posterior tibialis artery and deployed at 8 douglas for 3 minutes. Repeat angiography demonstrated excellent angiographic results with excellent inline flow to the right foot. At the end of the procedure the apparatus was removed the groin is reprepped closure change sheath was removed and hemostasis was achieved using Perclose device patient was transferred the postop putting in stable condition. Therapeutic heparin was administered throughout the procedure with checking of the ACT. Prior to the left groin access the radial sheath was removed and good hemostasis was achieved using TR banding ANGIOGRAPHIC RESULTS Right common iliac artery normal Right external and internal carotids are normal Right common femoral artery normal Right profunda femoris artery normal Right superficial femoral artery has a proximal focal concentric 80% stenosis followed by an additional 40% stenosis Right popliteal artery is widely patent Right anterior tibialis artery initially had poor flow into the foot however at the end of the procedure there was normal inline flow Right PT trunk has a focal 90% stenosis which extends into the right posterior tibialis artery. At the end th
[2022-01-10 00:58] LABS: POC Glucose,Bedside 221 (70-110)
--- NOTE | 2022-01-10 03:16 | PC.NURSE ---
pt rounded on throughout the night. he requested to take a bath around 05:30 this morning. I will set him up for that when it is time. The pt has not expressed any needs at this time.
--- NOTE | 2022-01-10 04:00 | PC.NURSE ---
pt rested well, pt a&o x4; pt medicated x1 for pain, RLE with dressing intact; j/p to bulb suction with blood tinged drainage noted; no more drainage noted on dressing after dressing reinforced at 2300; post of vital signs stable; lungs clear; pt remains NPO for possible surgery today; no other issues or concerns noted at this time.
--- NOTE | 2022-01-10 07:01 | PC.NURSE ---
Charlotte OLIVER NOTIFIED OF CONSULT
[2022-01-10 07:16] LABS: Alanine Aminotransferase 54 U/L (12-78); Albumin Level 2.7 g/dl (3.5-5.0); Albumin/Globulin Ratio 0.9 (1.1-1.8); Alkaline Phosphatase 225 U/L (38-126); Anion Gap 10.2 mEq/L (5-15); Aspartate Amino Transferase 87 U/L (17-59); Bilirubin,Total 1.2 mg/dl (0.2-1.3); Blood Urea Nitrogen 22 mg/dl (9-20); Calcium 8.5 mg/dl (8.4-10.2); Carbon Dioxide 24 mmol/L (22.0-30.0); Chloride 98 mmol/L (98-107); Creatinine Clearance Estimated 62 mL/min (50-200); Estimated Glomerular Filt Rate 41 ml/min (>60); GFR (African American) 49 ML/MIN (>60); Globulin 3.1 g/dL (1.3-3.2); Glucose 157 mg/dl (74-100); Potassium 3.2 mmoL/L (3.5-5.1); Sodium 129 mmol/L (136-145); Total Protein,Serum 5.8 g/dl (6.3-8.2)
[2022-01-10 07:21] LABS: C-Reactive Protein 245.6 mg/L (0-4)
[2022-01-10 07:25] LABS: Erythrocyte Sedimentation Rate 108 mm/hr (0-20)
[2022-01-10 07:28] LABS: Basophils % 0.1 % (0.1-2.0); Eosinophils # 0.1 K/mm3 (0.0-0.4); Eosinophils % 0.5 % (0.1-12.0); Hematocrit 36.8 % (42.0-52.0); Hemoglobin 12.9 g/dL (14.1-18.0); Lymphocytes # 0.7 K/mm3 (0.7-4.5); Lymphocytes % 6.3 % (10-50); Mean Corpuscular HGB Conc 35.2 g/dL (31.8-35.4); Mean Corpuscular Hemoglobin 31.3 pg (27.0-31.2); Mean Corpuscular Volume 88.8 fl (80-94); Mean Platelet Volume 8.4 fl (7.4-10.4); Monocytes # 0.9 K/mm3 (0.1-1.0); Monocytes % 7.4 % (1.7-9.3); Neutrophils % 85.7 % (37.0-80.0); Platelet Count 262 K/mm3 (142-424); Red Blood Count 4.14 M/mm3 (4.60-6.20); Red Cell Distribution Width 12.2 % (11.5-17.5); White Blood Count 11.7 K/mm3 (4.8-10.8)
[2022-01-10 07:30] LABS: MANUAL DIFFERENTIAL MANUAL DIFFERENTIAL (MANUAL DIFF)
[2022-01-10 07:58] LABS: Lymphocytes % 14 % (10-50); Monocytes % 7 % (2-9); Neutrophils % 79 % (42-76); Platelet Estimate Normal; RBC Morphology Normal; Total Cells Counted 100
--- NOTE | 2022-01-10 08:20 | HMH.ORTHPN ---
Subjective Date: 01/10/22 Time: 07:55 Principal diagnosis: Right gas gangrene infection Interval history: Patient resting comfortably at bedside. He does have appetite today. Patient reports pain has dramatically improved. PN: Obj Ex Vital signs: Temp Pulse Resp BP Pulse Ox 98.5 F 95 H 18 134/77 91 L 01/10/22 04:00 01/10/22 04:00 01/10/22 04:00 01/10/22 04:00 01/10/22 04:00 - Constitutional no acute distress - Routine HEENT Exam Head: Present: normocephalic - Routine Neck Exam Present: supple - Routine Cardiovascular Exam Present: RRR - Routine Abdominal Exam Present: soft - Routine Extremities Exam Present: edema (RLE improving), pulses intact (weakly palpable), extremity cold to touch, amputation (right midfoot) - Detailed Lower Extremity Exam Top foot image: 1 - R midfoot amp. I&D to medial ankle, lateral ankle and dorsal foot. DM drain intact. Skin erich and sutures intact to plantar foot flap and some I&D sites. Some sweeping noted to openings of medial ankle. No purulence expressed. Dusky changes to right amp flap, medial and lateral incisions. Pain and edema to RLE has improved. Progress Note: A&P (1) Gangrene of toe of right foot Status: Acute (2) Osteomyelitis Status: Acute (3) Lactic acid acidosis Status: Acute (4) Sepsis Status: Acute (5) New onset type 2 diabetes mellitus Status: Acute (6) Tobacco use disorder Status: Acute (7) ETOH abuse Status: Acute (8) Abscess of right foot Status: Acute (9) Gas gangrene Status: Acute Assessment and Plan for All Diagnoses:: Laboratory Tests 01/09/22 01/10/22 01/10/22 21:48 06:05 06:05 WBC 11.7 H D ESR Creatinine 1.70 H D POC Glucose 221 H C-Reactive Protein 245.6 H 01/10/22 06:05 WBC ESR 108 H Creatinine POC Glucose C-Reactive Protein 01/10/22: Podiatry dressing change -skin cleansed with betadine. The wound was flushed with saline and explored with hemostat at the bedside. No more purulence noted. -betadine soaked gauze used to pack medial ankle opening. -betadine soaked gauze, dry gauze, kerlix, abd, luis applied. The wound and incision sites looks better, we will proceed with daily dressing changes and local wound care. -Cancel I&D surgery today. -Patient is to maintain dressing clean dry and intact. -Continue IV antibiotics. -Partial weight bearing to the right heel in short fracture boot with DME assistance (crutches, walker). -Consult cardiology for run-off evaluation for PAD secondary to DM and smoking. Patient did not bleed much considering extensive dissection and amputation. The blood vessels to the midfoot including DP were calcified. -Patient is high risk for further debridement, amputation. Discussed he is still high risk for BKA due to lack of bleeding, extensive soft tissue gas infection. Will attempt limb salvage. -Patient understands it will take a few days to weeks for soft tissue to heal/demarcate. He understands he may need more debridement or surgery in the future. -Recommend PICC, IV Abx x4-6 weeks. -Will need daily dressing changes: betadine soaked gauze, dry gauze, abd pads, kerlix, luis. DM drain mgmt. -Orders for nursing daily dressing change. -No plans for more Podiatry surgery at this time. Will allow time for skin to demarcate after run-off procedure. -Discussed plan of care with Dr Mac. Can do nitro paste along dusky skin. -If patient still admitted, Podiatry will see again Friday.
--- NOTE | 2022-01-10 08:40 | HMH.ACPN2 ---
<Santa Johnson - Last Filed: 01/10/22 08:40> Internal Medicine - PN: Subj *Date: 01/10/22 *Time: 08:40 Interval history: Patient states he is feeling well other than the pain in his foot. He rates it as a 9 out of 10. He states he slept off and on throughout the night. He has been seen this morning by Dr. Gonzales who plans no more surgeries today. She has placed drains in the foot and is concerned with patient's blood flow. She is going to make a cardiology consult to see if the patient can have a runoff. She is concerned with his ability to heal at this time. Exam Vital signs and Labs for Last 24 Hours: Temp Pulse Resp BP Pulse Ox 98.5 F 95 H 18 134/77 91 L 01/10/22 04:00 01/10/22 04:00 01/10/22 04:00 01/10/22 04:00 01/10/22 04:00 Laboratory Results - last 24 hr 01/09/22 11:39: POC Glucose 179 H 01/09/22 17:01: POC Glucose 158 H 01/09/22 21:48: POC Glucose 221 H 01/10/22 06:05: WBC 11.7 H D, RBC 4.14 L, Hgb 12.9 L, Hct 36.8 L, MCV 88.8, MCH 31.3 H, MCHC 35.2, RDW 12.2, Plt Count 262, MPV 8.4, Neut % (Auto) 85.7 H, Lymph % (Auto) 6.3 L, [place] % (Auto) 7.4, Eos % (Auto) 0.5, Baso % (Auto) 0.1, Neut # (Auto) 10.0 H, Lymph # (Auto) 0.7, [place] # (Auto) 0.9, Eos # (Auto) 0.1, Baso # (Auto) 0.0, Total Counted 100, Neutrophils % (Manual) 79 H, Lymphocytes % (Manual) 14, Monocytes % (Manual) 7, Platelet Estimate Normal, RBC Morphology Normal 01/10/22 06:05: Sodium 129 L, Potassium 3.2 L, Chloride 98, Carbon Dioxide 24, Anion Gap 10.2, BUN 22 H D, Creatinine 1.70 H D, Estimated Creat Clear 62, Estimated GFR 41 L, Est GFR ( Amer) 49 L D, Glucose 157 H, Calcium 8.5, Total Bilirubin 1.2, AST 87 H D, ALT 54 D, Alkaline Phosphatase 225 H, C-Reactive Protein 245.6 H, Total Protein 5.8 L, Albumin 2.7 L D, Globulin 3.1, Albumin/Globulin Ratio 0.9 L 01/10/22 06:05: ESR 108 H I & O for Last 24 hours: Intake & Output 01/07/22 01/08/22 01/09/22 01/10/22 11:59 11:59 11:59 11:59 Intake Total 2445 / 2445 1240 / 1240 1900 / 1900 Output Total 800 / 800 660 / 660 310 / 310 Balance 1645 / 1645 580 / 580 1590 / 1590 Weight 230 lb 223 lb 6.4 oz 226 lb 2 oz 223 lb 8 oz Microbiology Reports for the Last 24 Hours: Microbiology 01/09/22 16:00 Ankle,Right Gram Stain - Final 01/08/22 12:10 Ankle,Right Gram Stain - Final 01/08/22 12:10 Ankle,Right Abscess Culture - Preliminary NO GROWTH AFTER 24 HOURS 01/08/22 12:19 Foot,Right - Right Second Gram Stain - Final 01/08/22 12:19 Foot,Right - Right Second Wound Culture - Preliminary NO GROWTH AFTER 24 HOURS 01/08/22 12:17 Foot,Right - Right Second Bone Culture - Preliminary NO GROWTH AFTER 24 HOURS 01/07/22 09:37 Blood Blood Culture - Preliminary NO GROWTH AFTER 48 HOURS 01/07/22 09:37 Blood Blood Culture - Preliminary NO GROWTH AFTER 48 HOURS - Constitutional no acute distress - *Routine Respiratory Exam Present: CTA bilaterally - *Routine Cardiovascular Exam Present: RRR - *Routine Abdominal Exam Present: soft, normoactive bowel sounds. Absent: tenderness - *Routine Extremities Exam Absent: cyanosis, clubbing, edema - *Routine Skin Exam Present: warm. Absent: rash Comments: right foot with dressing in place - *Routine Neurological Exam Present: alert, oriented X3 Assessment and Plan (1) Gangrene of toe of right foot Status: Acute Category: Medical Code(s): I96 - Gangrene, not elsewhere classified (2) Osteomyelitis Status: Acute Qualifiers: Osteomyelitis type: unspecified type Osteomyelitis location: foot Laterality: right Qualified Code(s): M86.9 - Osteomyelitis, unspecified Category: Medical Code(s): M86.9 - Osteomyelitis, unspecified (3) Lactic acid acidosis Status: Acute Category: Medical Code(s): E87.2 - Acidosis (4) Sepsis Status: Acute
--- NOTE | 2022-01-10 08:59 | HMH.PNCARD ---
Subjective Date: 01/10/22 Time: 08:59 Principal diagnosis: Right gas gangrene infection Interval history: 66-year-old white male admitted for gangrene of the right foot status post surgical debridement and amputation with slow/poor healing and concern for peripheral vascular disease. Cardiology asked to see the patient again for consideration of lower extremity angiogram. Discussed risk, benefits and procedure with the patient and he agrees to proceed. Exam Vital signs and Labs for Last 24 Hours: Temp Pulse Resp BP Pulse Ox 98.5 F 95 H 18 134/77 91 L 01/10/22 04:00 01/10/22 04:00 01/10/22 04:00 01/10/22 04:00 01/10/22 04:00 Laboratory Results - last 24 hr 01/09/22 11:39: POC Glucose 179 H 01/09/22 17:01: POC Glucose 158 H 01/09/22 21:48: POC Glucose 221 H 01/10/22 06:05: WBC 11.7 H D, RBC 4.14 L, Hgb 12.9 L, Hct 36.8 L, MCV 88.8, MCH 31.3 H, MCHC 35.2, RDW 12.2, Plt Count 262, MPV 8.4, Neut % (Auto) 85.7 H, Lymph % (Auto) 6.3 L, [place] % (Auto) 7.4, Eos % (Auto) 0.5, Baso % (Auto) 0.1, Neut # (Auto) 10.0 H, Lymph # (Auto) 0.7, [place] # (Auto) 0.9, Eos # (Auto) 0.1, Baso # (Auto) 0.0, Total Counted 100, Neutrophils % (Manual) 79 H, Lymphocytes % (Manual) 14, Monocytes % (Manual) 7, Platelet Estimate Normal, RBC Morphology Normal 01/10/22 06:05: Sodium 129 L, Potassium 3.2 L, Chloride 98, Carbon Dioxide 24, Anion Gap 10.2, BUN 22 H D, Creatinine 1.70 H D, Estimated Creat Clear 62, Estimated GFR 41 L, Est GFR ( Amer) 49 L D, Glucose 157 H, Calcium 8.5, Total Bilirubin 1.2, AST 87 H D, ALT 54 D, Alkaline Phosphatase 225 H, C-Reactive Protein 245.6 H, Total Protein 5.8 L, Albumin 2.7 L D, Globulin 3.1, Albumin/Globulin Ratio 0.9 L 01/10/22 06:05: ESR 108 H I & O for Last 24 hours: Intake & Output 01/07/22 01/08/22 01/09/22 01/10/22 11:59 11:59 11:59 11:59 Intake Total 2445 / 2445 1240 / 1240 1900 / 1900 Output Total 800 / 800 660 / 660 310 / 310 Balance 1645 / 1645 580 / 580 1590 / 1590 Weight 230 lb 223 lb 6.4 oz 226 lb 2 oz 223 lb 8 oz Microbiology Reports for the Last 24 Hours: Microbiology 01/09/22 16:00 Ankle,Right Gram Stain - Final 01/08/22 12:10 Ankle,Right Gram Stain - Final 01/08/22 12:10 Ankle,Right Abscess Culture - Preliminary NO GROWTH AFTER 24 HOURS 01/08/22 12:19 Foot,Right - Right Second Gram Stain - Final 01/08/22 12:19 Foot,Right - Right Second Wound Culture - Preliminary NO GROWTH AFTER 24 HOURS 01/08/22 12:17 Foot,Right - Right Second Bone Culture - Preliminary NO GROWTH AFTER 24 HOURS 01/07/22 09:37 Blood Blood Culture - Preliminary NO GROWTH AFTER 48 HOURS 01/07/22 09:37 Blood Blood Culture - Preliminary NO GROWTH AFTER 48 HOURS - Constitutional no acute distress - *Routine HEENT Exam Head: Present: normocephalic Eye: Present: EOMI, PERRL ENT: Present: mucous membranes moist - *Routine Neck Exam Present: supple. Absent: lymphadenopathy - *Routine Respiratory Exam Present: CTA bilaterally - *Routine Cardiovascular Exam Present: RRR - *Routine Abdominal Exam Present: soft, normoactive bowel sounds. Absent: tenderness - *Routine Extremities Exam Absent: cyanosis, clubbing, edema Comments: right foot wrapped with HORACE bandage. Good pulses of bilateral femoral arteries. - *Routine Skin Exam Present: warm. Absent: rash - *Routine Neurological Exam Present: alert, oriented X3 Progress Note: A&P (1) Gangrene of toe of right foot Status: Acute (2) Osteomyelitis Status: Acute (3) Lactic acid acidosis Status: Acute (4) Sepsis Status: Acute (5) New onset type 2 diabetes mellitus Status: Acute (6) Tobacco use disorder Status: Acute (7) ETOH abuse Status: Acute (8) Abscess of right foot Status: Acute Assessment and Plan for All Diagnoses:: P
--- NOTE | 2022-01-10 11:28 | SW/DCPLANNER ---
Addendum entered by [facility] 01/17/22 13:34: This patient has been approved by insurance to discharge to [facility] for today. Eileen shea/ [facility] stated she can accept this patient today. COVID swab will be collected prior to discharge. Addendum entered by [facility] 01/16/22 11:21: Per Eileen precert will be started on this patient today. Addendum entered by [facility] 01/16/22 08:51: Eileen shea/ [facility] is able to accept this patient pending precert. I will continue to follow up with MD and precert will be requested once discharge date is known. Addendum entered by [facility] 01/14/22 13:29: Suha shea/ [facility] stated that she can not meet patient's needs at this time. Patient information has been faxed to Eileen hein [facility]: patient agrees with this plan. Addendum entered by [facility] 01/14/22 08:15: I spoke with this patient regarding discharge plans once medically stable. Patient stated that he does not have transportation and lives alone without much assistance. I explained to patient that due to the level of care needed at discharge patient would benefit from placement. Dr Gonzales will be taking patient down for surgery today. Patient is agreeable to placement in [place]. At this time [facility] is the only facility in network with patient's insurance: patient information will be faxed to Suha shea/ [facility] this AM. Original Note: CM spoke with this patient this AM regarding plans once medically stable for discharge. Patient will require a PICC line, IV antibiotic (4-6 weeks) and daily dressing changes. Patient stated that he resides close to [facility] and plans to return to [facility] daily for IV antibiotics and dressing changes. Discharge date is unknown at this time. CM will continue to follow during stay.
--- NOTE | 2022-01-10 12:29 | HMH.ANESII ---
[facility] Anesthesia Record Part II Discharge Time: 17:25 Destination: Medical Surgical Department PACU nurse assessment reviewed?: Yes Patient Condition:: Good Anesthesia Complications:: None Swallowing reflex intact?: Yes Cyanosis?: No Blood Pressure: 123/78 Pulse Rate: 102 Temperature: 98.1 F Mental Status: Alert & Oriented Pain level:: 0 Nausea and/or vomitting:: None Intake, IV Amount: 0
[2022-01-10 15:51] LABS: CATHL Activated Clotting Time 208 SEC (74-125)
[2022-01-10 15:52] LABS: CATHL Activated Clotting Time 223 SEC (74-125)
--- NOTE | 2022-01-10 19:31 | PC.NURSE ---
HEART CATH WITH STENT PLACEMENT THIS SHIFT. VITAL SIGNS STABLE SINCE ARRIVAL TO FLOOR FROM [facility]. DSG IN PLACE TO RIGHT FOOT C/D/I WITH DM DRAIN IN PLACE. DSG WAS CHANGED BY PODIATRY THIS MORNING.
[2022-01-10 21:41] LABS: Vancomycin,Trough 32.4 ug/mL (5.0-10.0)
--- NOTE | 2022-01-10 23:00 | PC.NURSE ---
radial band removed to right radial, no drainage noted, 2x2 and telfa placed, pt tolerated well
[2022-01-11] VITALS: BP 142/73; PULSE 88; RESP 20; TEMP 37; O2SAT 96
[2022-01-11 04:00] VITALS: BP 134/68; PULSE 86; RESP 20; TEMP 36.4; O2SAT 95
--- NOTE | 2022-01-11 04:00 | PC.NURSE ---
pt rested well through the night, no changes from previous assessment, dressing intact to RLE; j/p to bulb suction with bloody drainage noted, pt axo x4; skin pwd, medicated x1 for pain through the night, dressings to right radial and left groin cath sites CDI; no other issues noted, VSS
[2022-01-11 04:55] VITALS: BMI 27.2
--- NOTE | 2022-01-11 04:57 | PC.NURSE ---
Weigh Bed would not work
[2022-01-11 06:56] LABS: Basophils % 0.2 % (0.1-2.0); Eosinophils # 0.1 K/mm3 (0.0-0.4); Eosinophils % 0.4 % (0.1-12.0); Hemoglobin 11.6 g/dL (14.1-18.0); Lymphocytes # 0.8 K/mm3 (0.7-4.5); Lymphocytes % 7.9 % (10-50); Mean Corpuscular HGB Conc 34.1 g/dL (31.8-35.4); Mean Corpuscular Volume 93.8 fl (80-94); Mean Platelet Volume 9.2 fl (7.4-10.4); Monocytes # 0.8 K/mm3 (0.1-1.0); Monocytes % 8.1 % (1.7-9.3); Neutrophils # 8.6 K/mm3 (1.8-7.8); Neutrophils % 83.4 % (37.0-80.0); Platelet Count 277 K/mm3 (142-424); Red Blood Count 3.63 M/mm3 (4.60-6.20); Red Cell Distribution Width 13.1 % (11.5-17.5); White Blood Count 10.3 K/mm3 (4.8-10.8)
[2022-01-11 07:09] LABS: Alanine Aminotransferase 72 U/L (12-78); Albumin Level 2.5 g/dl (3.5-5.0); Albumin/Globulin Ratio 0.8 (1.1-1.8); Alkaline Phosphatase 260 U/L (38-126); Anion Gap 11.4 mEq/L (5-15); Aspartate Amino Transferase 70 U/L (17-59); Bilirubin,Total 1.2 mg/dl (0.2-1.3); Blood Urea Nitrogen 33 mg/dl (9-20); Calcium 8.3 mg/dl (8.4-10.2); Carbon Dioxide 22 mmol/L (22.0-30.0); Chloride 100 mmol/L (98-107); Creatinine Clearance Estimated 38 mL/min (50-200); Estimated Glomerular Filt Rate 23 ml/min (>60); GFR (African American) 28 ML/MIN (>60); Glucose 144 mg/dl (74-100); Potassium 3.4 mmoL/L (3.5-5.1); Sodium 130 mmol/L (136-145); Total Protein,Serum 5.5 g/dl (6.3-8.2)
[2022-01-11 08:00] VITALS: BP 148/75; PULSE 93; RESP 15; TEMP 36.7; O2SAT 95
--- NOTE | 2022-01-11 08:46 | XR_ITS ---
FINAL REPORT CLINICAL HISTORY: Confirm PICC line placement COMPARISON: 01/07/2022 FINDINGS: SINGLE-VIEW CHEST The heart size is normal. The mediastinum is normal. There is mild bibasilar atelectasis. New left PICC line terminates in the SVC. There is no pneumothorax. IMPRESSION: PICC line tip terminates in the SVC. Reviewed, Interpreted and Dictated by Geovanny Rogers III, MD Transcribed by Meli Haq Authenticated and [facility]
--- NOTE | 2022-01-11 10:10 | HMH.ACPN2 ---
<Santa Johnson - Last Filed: 01/11/22 10:10> Internal Medicine - PN: Subj *Date: 01/11/22 *Time: 10:10 Interval history: Patient states his pain is still around a 9 out of 10 in 1 spot on his foot. He was able to rest off and on last night. He did have a lower extremity angiogram yesterday with the following results and plan: Severe right SFA disease as described above with successful percutaneous revascularization Critical disease in the PT trunk and posterior tibialis artery with successful revascularization using a drug-coated balloon Three-vessel runoff to the foot below the knee PLAN 1. Xarelto 2.5 twice daily plus aspirin 81 mg daily 2. LDL less than 55 to be achieved with high intensity statin 3. Consider 1 inch of Nitropaste every 6 hours to the right foot 4. Supportive care per foot and ankle surgery service Exam Vital signs and Labs for Last 24 Hours: Temp Pulse Resp BP Pulse Ox 97.5 F L 86 20 134/68 95 01/11/22 04:00 01/11/22 04:00 01/11/22 04:00 01/11/22 04:00 01/11/22 04:00 Laboratory Results - last 24 hr 01/10/22 13:02: Activated Clotting Time 223 H* 01/10/22 13:49: Activated Clotting Time 208 H* 01/10/22 20:36: Vancomycin Trough 32.4 H 01/11/22 06:35: Sodium 130 L, Potassium 3.4 L, Chloride 100, Carbon Dioxide 22, Anion Gap 11.4, BUN 33 H D, Creatinine 2.80 H D, Estimated Creat Clear 38, Estimated GFR 23 L, Est GFR ( Amer) 28 L D, Glucose 144 H, Calcium 8.3 L, Total Bilirubin 1.2, AST 70 H, ALT 72 D, Alkaline Phosphatase 260 H, Total Protein 5.5 L, Albumin 2.5 L, Globulin 3.0, Albumin/Globulin Ratio 0.8 L 01/11/22 06:35: WBC 10.3, RBC 3.63 L, Hgb 11.6 L, Hct 34.0 L, MCV 93.8, MCH 32.0 H, MCHC 34.1, RDW 13.1, Plt Count 277, MPV 9.2, Neut % (Auto) 83.4 H, Lymph % (Auto) 7.9 L, [place] % (Auto) 8.1, Eos % (Auto) 0.4, Baso % (Auto) 0.2, Neut # (Auto) 8.6 H, Lymph # (Auto) 0.8, [place] # (Auto) 0.8, Eos # (Auto) 0.1, Baso # (Auto) 0.0 I & O for Last 24 hours: Intake & Output 01/08/22 01/09/22 01/10/22 01/11/22 11:59 11:59 11:59 11:59 Intake Total 2445 / 2445 1240 / 1240 1900 / 1900 915 / 915 Output Total 800 / 800 660 / 660 310 / 310 320 / 320 Balance 1645 / 1645 580 / 580 1590 / 1590 595 / 595 Weight 223 lb 6.4 oz 226 lb 2 oz 223 lb 8 oz 223 lb 8.004 oz Microbiology Reports for the Last 24 Hours: Microbiology 01/08/22 12:19 Foot,Right - Right Second Gram Stain - Final 01/08/22 12:19 Foot,Right - Right Second Wound Culture - Preliminary 01/08/22 12:10 Ankle,Right Gram Stain - Final 01/08/22 12:10 Ankle,Right Abscess Culture - Preliminary 01/08/22 12:17 Foot,Right - Right Second Bone Culture - Preliminary 01/09/22 16:00 Ankle,Right Gram Stain - Final 01/09/22 16:00 Ankle,Right Wound Culture - Preliminary NO GROWTH AFTER 24 HOURS 01/09/22 16:00 Foot,Right - Wound Gram Stain - Final 01/09/22 16:00 Foot,Right - Wound Surgical Biopsy Culture - Preliminary NO GROWTH AFTER 24 HOURS 01/09/22 16:00 Foot,Right - Right Bone Culture - Preliminary NO GROWTH AFTER 24 HOURS - Constitutional no acute distress - *Routine Respiratory Exam Present: CTA bilaterally - *Routine Cardiovascular Exam Present: RRR - *Routine Abdominal Exam Present: soft, normoactive bowel sounds. Absent: tenderness - *Routine Extremities Exam Absent: cyanosis, clubbing, edema - *Routine Skin Exam Present: warm. Absent: rash Comments: Dressing in place on the right foot with drains in place - *Routine Neurological Exam Present: alert, oriented X3 Assessment and Plan (1) Gangrene of toe of right foot Status: Acute Category: Medical Code(s): I96 - Gangrene, not elsewhere classified (2) Osteomyelitis Status: Acute Qualifiers: Osteomyelitis type: unspecified type Osteomyelitis location: foot Laterality: right Qualified Code(s): M86.9 - Osteomyelitis, unspec
--- NOTE | 2022-01-11 10:18 | HMH.PNCARD ---
Subjective Date: 01/11/22 Time: 10:18 Principal diagnosis: Right gas gangrene infection Interval history: 66-year-old white male in bed in no acute distress. Left femoral access site looks good with no evidence of pseudoaneurysm or bleeding. Patient received stenting of his right SFA and right posterior tibial arteries yesterday. Continue aspirin, Plavix and Xarelto for 30 days and then discontinue aspirin. Patient will remain on Plavix and Xarelto thereafter. Exam Vital signs and Labs for Last 24 Hours: Temp Pulse Resp BP Pulse Ox 98.0 F 93 H 15 148/75 H 95 01/11/22 08:00 01/11/22 08:00 01/11/22 08:00 01/11/22 08:00 01/11/22 08:00 Laboratory Results - last 24 hr 01/10/22 13:02: Activated Clotting Time 223 H* 01/10/22 13:49: Activated Clotting Time 208 H* 01/10/22 20:36: Vancomycin Trough 32.4 H 01/11/22 06:35: Sodium 130 L, Potassium 3.4 L, Chloride 100, Carbon Dioxide 22, Anion Gap 11.4, BUN 33 H D, Creatinine 2.80 H D, Estimated Creat Clear 38, Estimated GFR 23 L, Est GFR ( Amer) 28 L D, Glucose 144 H, Calcium 8.3 L, Total Bilirubin 1.2, AST 70 H, ALT 72 D, Alkaline Phosphatase 260 H, Total Protein 5.5 L, Albumin 2.5 L, Globulin 3.0, Albumin/Globulin Ratio 0.8 L 01/11/22 06:35: WBC 10.3, RBC 3.63 L, Hgb 11.6 L, Hct 34.0 L, MCV 93.8, MCH 32.0 H, MCHC 34.1, RDW 13.1, Plt Count 277, MPV 9.2, Neut % (Auto) 83.4 H, Lymph % (Auto) 7.9 L, [place] % (Auto) 8.1, Eos % (Auto) 0.4, Baso % (Auto) 0.2, Neut # (Auto) 8.6 H, Lymph # (Auto) 0.8, [place] # (Auto) 0.8, Eos # (Auto) 0.1, Baso # (Auto) 0.0 I & O for Last 24 hours: Intake & Output 01/08/22 01/09/22 01/10/22 01/11/22 11:59 11:59 11:59 11:59 Intake Total 2445 / 2445 1240 / 1240 1900 / 1900 1035 / 1035 Output Total 800 / 800 660 / 660 310 / 310 320 / 320 Balance 1645 / 1645 580 / 580 1590 / 1590 715 / 715 Weight 223 lb 6.4 oz 226 lb 2 oz 223 lb 8 oz 223 lb 8.004 oz Microbiology Reports for the Last 24 Hours: Microbiology 01/08/22 12:19 Foot,Right - Right Second Gram Stain - Final 01/08/22 12:19 Foot,Right - Right Second Wound Culture - Preliminary 01/08/22 12:10 Ankle,Right Gram Stain - Final 01/08/22 12:10 Ankle,Right Abscess Culture - Preliminary 01/08/22 12:17 Foot,Right - Right Second Bone Culture - Preliminary 01/09/22 16:00 Ankle,Right Gram Stain - Final 01/09/22 16:00 Ankle,Right Wound Culture - Preliminary NO GROWTH AFTER 24 HOURS 01/09/22 16:00 Foot,Right - Wound Gram Stain - Final 01/09/22 16:00 Foot,Right - Wound Surgical Biopsy Culture - Preliminary NO GROWTH AFTER 24 HOURS 01/09/22 16:00 Foot,Right - Right Bone Culture - Preliminary NO GROWTH AFTER 24 HOURS - Constitutional no acute distress - *Routine Respiratory Exam Present: CTA bilaterally - *Routine Cardiovascular Exam Present: RRR - *Routine Extremities Exam Absent: cyanosis, clubbing, edema Comments: Right foot wrapped. Leg warm. Progress Note: A&P (1) Gangrene of toe of right foot Status: Acute (2) Osteomyelitis Status: Acute (3) Lactic acid acidosis Status: Acute (4) Sepsis Status: Acute (5) New onset type 2 diabetes mellitus Status: Acute (6) Tobacco use disorder Status: Acute (7) ETOH abuse Status: Acute (8) Abscess of right foot Status: Acute (9) Hypertension Status: Acute (10) Peripheral arterial disease with history of revascularization Status: Acute Assessment and Plan for All Diagnoses:: 1. PVD status post right SFA and right PT stenting 01/10/2022. Triple therapy with aspirin 81 mg daily, Plavix 75 mg daily and Xarelto 2.5 mg twice daily for 30 days then discontinue aspirin. 2. Right foot infection with gangrene status post surgical intervention, per podiatry. Continues on antibiotic therapy. 3. Hypokalemia, continue replacement 4. Hyponatremia, slowly improving 5. Acute kidn
--- NOTE | 2022-01-11 10:20 | HMH.ACPN ---
Internal Medicine - PN: Subj *Date: 01/11/22 *Time: 10:20 Exam Vital signs and Labs for Last 24 Hours: Temp Pulse Resp BP Pulse Ox 98.0 F 93 H 15 148/75 H 95 01/11/22 08:00 01/11/22 08:00 01/11/22 08:00 01/11/22 08:00 01/11/22 08:00 Laboratory Results - last 24 hr 01/10/22 13:02: Activated Clotting Time 223 H* 01/10/22 13:49: Activated Clotting Time 208 H* 01/10/22 20:36: Vancomycin Trough 32.4 H 01/11/22 06:35: Sodium 130 L, Potassium 3.4 L, Chloride 100, Carbon Dioxide 22, Anion Gap 11.4, BUN 33 H D, Creatinine 2.80 H D, Estimated Creat Clear 38, Estimated GFR 23 L, Est GFR ( Amer) 28 L D, Glucose 144 H, Calcium 8.3 L, Total Bilirubin 1.2, AST 70 H, ALT 72 D, Alkaline Phosphatase 260 H, Total Protein 5.5 L, Albumin 2.5 L, Globulin 3.0, Albumin/Globulin Ratio 0.8 L 01/11/22 06:35: WBC 10.3, RBC 3.63 L, Hgb 11.6 L, Hct 34.0 L, MCV 93.8, MCH 32.0 H, MCHC 34.1, RDW 13.1, Plt Count 277, MPV 9.2, Neut % (Auto) 83.4 H, Lymph % (Auto) 7.9 L, [place] % (Auto) 8.1, Eos % (Auto) 0.4, Baso % (Auto) 0.2, Neut # (Auto) 8.6 H, Lymph # (Auto) 0.8, [place] # (Auto) 0.8, Eos # (Auto) 0.1, Baso # (Auto) 0.0 I & O for Last 24 hours: Intake & Output 01/08/22 01/09/22 01/10/22 01/11/22 23:59 23:59 23:59 23:59 Intake Total 1240 / 1240 1000 / 1000 1140 / 1140 795 / 795 Output Total 1260 / 1260 280 / 280 30 / 230 320 / 320 Balance -20 / -20 720 / 720 1110 / 910 475 / 475 Weight 101.333 kg 102.569 kg 101.378 kg 101.378 kg Microbiology Reports for the Last 24 Hours: Microbiology 01/08/22 12:19 Foot,Right - Right Second Gram Stain - Final 01/08/22 12:19 Foot,Right - Right Second Wound Culture - Preliminary 01/08/22 12:10 Ankle,Right Gram Stain - Final 01/08/22 12:10 Ankle,Right Abscess Culture - Preliminary 01/08/22 12:17 Foot,Right - Right Second Bone Culture - Preliminary 01/09/22 16:00 Ankle,Right Gram Stain - Final 01/09/22 16:00 Ankle,Right Wound Culture - Preliminary NO GROWTH AFTER 24 HOURS 01/09/22 16:00 Foot,Right - Wound Gram Stain - Final 01/09/22 16:00 Foot,Right - Wound Surgical Biopsy Culture - Preliminary NO GROWTH AFTER 24 HOURS 01/09/22 16:00 Foot,Right - Right Bone Culture - Preliminary NO GROWTH AFTER 24 HOURS Assessment and Plan (1) Gangrene of toe of right foot Status: Acute Category: Medical Code(s): I96 - Gangrene, not elsewhere classified (2) Osteomyelitis Status: Acute Qualifiers: Qualified Code(s): M86.9 - Osteomyelitis, unspecified Category: Medical Code(s): M86.9 - Osteomyelitis, unspecified (3) Lactic acid acidosis Status: Acute Category: Medical Code(s): E87.2 - Acidosis (4) Sepsis Status: Acute Qualifiers: Qualified Code(s): A41.9 - Sepsis, unspecified organism Category: Medical Code(s): A41.9 - Sepsis, unspecified organism (5) New onset type 2 diabetes mellitus Status: Acute Category: Medical Code(s): E11.9 - Type 2 diabetes mellitus without complications (6) Tobacco use disorder Status: Acute Category: Medical Code(s): F17.200 - Nicotine dependence, unspecified, uncomplicated (7) ETOH abuse Status: Acute Category: Social Hx Code(s): F10.10 - Alcohol abuse, uncomplicated (8) Abscess of right foot Status: Acute Category: Medical Code(s): L02.611 - Cutaneous abscess of right foot (9) Hypertension Status: Acute Category: Medical Code(s): I10 - Essential (primary) hypertension (10) Peripheral arterial disease with history of revascularization Status: Acute Category: Medical Code(s): I73.9 - Peripheral vascular disease, unspecified; Z98.890 - Other specified postprocedural states The patient's infection will respond to the chosen ABx?: Yes Is the patient receiving the right drug, dose, and route?: Yes Could a more targeted ABx be ordered?: No
--- NOTE | 2022-01-11 11:18 | HMH.PHACONS ---
- Pharmacy Consult Date: 01/11/22 Time: 11:18 Referring provider: DR. VARELA Reason for Consult:: VANCOMYCIN LEVEL AND DOSE CHANGE Allergies and ADEs:: Allergies Allergy/AdvReac Type Severity Reaction Status Date / Time Penicillins Allergy Unknown Unknown Verified 01/07/22 09:54 allergy reaction Home Medications:: Home Medications Medication Instructions Recorded Confirmed Type No Known Home Medications 01/07/22 01/07/22 History Height: 1.93 m Weight: 101.378 kg Laboratory Results:: Laboratory Results - last 24 hr 01/10/22 13:02: Activated Clotting Time 223 H* 01/10/22 13:49: Activated Clotting Time 208 H* 01/10/22 20:36: Vancomycin Trough 32.4 H 01/11/22 06:35: Sodium 130 L, Potassium 3.4 L, Chloride 100, Carbon Dioxide 22, Anion Gap 11.4, BUN 33 H D, Creatinine 2.80 H D, Estimated Creat Clear 38, Estimated GFR 23 L, Est GFR ( Amer) 28 L D, Glucose 144 H, Calcium 8.3 L, Total Bilirubin 1.2, AST 70 H, ALT 72 D, Alkaline Phosphatase 260 H, Total Protein 5.5 L, Albumin 2.5 L, Globulin 3.0, Albumin/Globulin Ratio 0.8 L 01/11/22 06:35: WBC 10.3, RBC 3.63 L, Hgb 11.6 L, Hct 34.0 L, MCV 93.8, MCH 32.0 H, MCHC 34.1, RDW 13.1, Plt Count 277, MPV 9.2, Neut % (Auto) 83.4 H, Lymph % (Auto) 7.9 L, [place] % (Auto) 8.1, Eos % (Auto) 0.4, Baso % (Auto) 0.2, Neut # (Auto) 8.6 H, Lymph # (Auto) 0.8, [place] # (Auto) 0.8, Eos # (Auto) 0.1, Baso # (Auto) 0.0 Medical History: Reports:: Hypertension Denies:: Anxiety, Atherosclerotic Heart Disease, Diabetes Mellitus Type 2, Lung Disease Assessment and Plan (1) Gangrene of toe of right foot Status: Acute Category: Medical Code(s): I96 - Gangrene, not elsewhere classified (2) Osteomyelitis Status: Acute Qualifiers: Osteomyelitis type: unspecified type Osteomyelitis location: foot Laterality: right Qualified Code(s): M86.9 - Osteomyelitis, unspecified Category: Medical Code(s): M86.9 - Osteomyelitis, unspecified (3) Lactic acid acidosis Status: Acute Category: Medical Code(s): E87.2 - Acidosis (4) Sepsis Status: Acute Qualifiers: Sepsis type: sepsis due to unspecified organism Sepsis acute organ dysfunction status: without acute organ dysfunction Qualified Code(s): A41.9 - Sepsis, unspecified organism Category: Medical Code(s): A41.9 - Sepsis, unspecified organism (5) New onset type 2 diabetes mellitus Status: Acute Category: Medical Code(s): E11.9 - Type 2 diabetes mellitus without complications (6) Tobacco use disorder Status: Acute Category: Medical Code(s): F17.200 - Nicotine dependence, unspecified, uncomplicated (7) ETOH abuse Status: Acute Category: Social Hx Code(s): F10.10 - Alcohol abuse, uncomplicated (8) Abscess of right foot Status: Acute Category: Medical Code(s): L02.611 - Cutaneous abscess of right foot (9) Hypertension Status: Acute Category: Medical Code(s): I10 - Essential (primary) hypertension (10) Peripheral arterial disease with history of revascularization Status: Acute Category: Medical Code(s): I73.9 - Peripheral vascular disease, unspecified; Z98.890 - Other specified postprocedural states - Assessment and plan all Dx Assessment and Plan for all problems:: VANCOMYCIN TROUGH LEVEL WAS 32.4 MCG/ML OVERNIGHT. DOSE WAS HELD AND WILL RESTART VANCOMYCIN ON 01/12/22 PENDING TROUGH LEVEL. PATIENT'S RENAL FUNCTION HAS DECLINED.
[2022-01-11 12:00] VITALS: BP 174/77; PULSE 96; RESP 20; TEMP 36.6; O2SAT 98
[2022-01-11 13:27] LABS: POC Glucose,Bedside 161 (70-110)
[2022-01-11 13:27] LABS: POC Glucose,Bedside 144 (70-110)
[2022-01-11 13:27] LABS: POC Glucose,Bedside 114 (70-110)
[2022-01-11 13:27] LABS: POC Glucose,Bedside 149 (70-110)
[2022-01-11 13:27] LABS: POC Glucose,Bedside 146 (70-110)
--- NOTE | 2022-01-11 14:18 | DIET.NUTRFU ---
RD saw patient to review discharge diet, patient was not follow diabetic diet at home previously. He states he will try now. Reviewed diabetic handout with carb counting included, reviewed portion size and label reading. Patient was previously drinking 2-3 beers/day at home, reviewed he would have to count them and encourage him to cut back. He also likes ice cream and some desserts, encouraged him to check labels and cut back as needed. Also reviewed protein needs to promote healing, reviewed amount needed and high protein choices. He does drink milk with meals and likes eggs in morning. He lives alone and fixes his own meals, was working but hoping not to have to go back. Provide contact information for further questions and also recommended outpatient apt if needed for DM follow-up
--- NOTE | 2022-01-11 14:30 | PC.NURSE ---
Pt has PICC line placed and placement was checked. Tolerated procedure well.
--- NOTE | 2022-01-11 15:38 | PC.NURSE ---
Pt is A/O x4. He stood up using the walker while we changed to bedding for the pt. He out 120 MLs of the DM drain in her foot. He was having a tough time trying to fall asleep through out the day. A little bit of drainage was present on the R foot dressing.
[2022-01-11 16:00] VITALS: BP 158/83; PULSE 93; RESP 20; TEMP 36.6; O2SAT 97
[2022-01-11 18:59] LABS: POC Glucose,Bedside 101 (70-110)
[2022-01-11 20:00] VITALS: BP 127/74; PULSE 93; RESP 16; TEMP 36.6; O2SAT 96
[2022-01-12] VITALS (7 sets, daily range): BP systolic 113–192; BP diastolic 68–88; PULSE 54–94; RESP 16–20; TEMP 36.6–37.1; O2SAT 95–99; BMI 27.2
--- NOTE | 2022-01-12 05:20 | PC.NURSE ---
Pt has c/o pain in right foot 1x thus far, PRN IV pain medication administered, pt states favorable results. MD drain in place to right foot draining serosang drainage. Call light within reach.
[2022-01-12 08:15] LABS: Alanine Aminotransferase 55 U/L (12-78); Albumin Level 2.4 g/dl (3.5-5.0); Albumin/Globulin Ratio 0.8 (1.1-1.8); Alkaline Phosphatase 259 U/L (38-126); Anion Gap 11.7 mEq/L (5-15); Aspartate Amino Transferase 40 U/L (17-59); Bilirubin,Total 0.8 mg/dl (0.2-1.3); Blood Urea Nitrogen 40 mg/dl (9-20); Calcium 8.4 mg/dl (8.4-10.2); Carbon Dioxide 21 mmol/L (22.0-30.0); Chloride 103 mmol/L (98-107); Creatinine Clearance Estimated 29 mL/min (50-200); Estimated Glomerular Filt Rate 17 ml/min (>60); GFR (African American) 21 ML/MIN (>60); Globulin 3.1 g/dL (1.3-3.2); Glucose 121 mg/dl (74-100); Potassium 3.7 mmoL/L (3.5-5.1); Sodium 132 mmol/L (136-145); Total Protein,Serum 5.5 g/dl (6.3-8.2)
[2022-01-12 09:22] LABS: Vancomycin,Trough 22.1 ug/mL (5.0-10.0)
--- NOTE | 2022-01-12 09:46 | HMH.PHACONS ---
- Pharmacy Consult Date: 01/12/22 Time: 09:46 Referring provider: JANET Reason for Consult:: VANOCMYCIN THERAPY MANAGEMENT Allergies and ADEs:: Allergies Allergy/AdvReac Type Severity Reaction Status Date / Time Penicillins Allergy Unknown Unknown Verified 01/07/22 09:54 allergy reaction Home Medications:: Home Medications Medication Instructions Recorded Confirmed Type No Known Home Medications 01/07/22 01/07/22 History Height: 1.93 m Weight: 101.378 kg Laboratory Results:: Laboratory Results - last 24 hr 01/10/22 05:59: POC Glucose 146 H 01/10/22 17:48: POC Glucose 114 H 01/10/22 21:42: POC Glucose 149 H 01/11/22 07:12: POC Glucose 144 H 01/11/22 11:51: POC Glucose 161 H 01/11/22 17:30: POC Glucose 101 01/12/22 07:06: Sodium 132 L, Potassium 3.7, Chloride 103, Carbon Dioxide 21 L, Anion Gap 11.7, BUN 40 H, Creatinine 3.60 H D, Estimated Creat Clear 29, Estimated GFR 17 L*, Est GFR ( Amer) 21 L D, Glucose 121 H, Calcium 8.4, Total Bilirubin 0.8, AST 40 D, ALT 55, Alkaline Phosphatase 259 H, Total Protein 5.5 L, Albumin 2.4 L, Globulin 3.1, Albumin/Globulin Ratio 0.8 L 01/12/22 08:30: Vancomycin Trough 22.1 H Medical History: Reports:: Hypertension Denies:: Anxiety, Atherosclerotic Heart Disease, Diabetes Mellitus Type 2, Lung Disease Assessment and Plan (1) Gangrene of toe of right foot Status: Acute Category: Medical Code(s): I96 - Gangrene, not elsewhere classified (2) Osteomyelitis Status: Acute Qualifiers: Osteomyelitis type: unspecified type Osteomyelitis location: foot Laterality: right Qualified Code(s): M86.9 - Osteomyelitis, unspecified Category: Medical Code(s): M86.9 - Osteomyelitis, unspecified (3) Lactic acid acidosis Status: Acute Category: Medical Code(s): E87.2 - Acidosis (4) Sepsis Status: Acute Qualifiers: Sepsis type: sepsis due to unspecified organism Sepsis acute organ dysfunction status: without acute organ dysfunction Qualified Code(s): A41.9 - Sepsis, unspecified organism Category: Medical Code(s): A41.9 - Sepsis, unspecified organism (5) New onset type 2 diabetes mellitus Status: Acute Category: Medical Code(s): E11.9 - Type 2 diabetes mellitus without complications (6) Tobacco use disorder Status: Acute Category: Medical Code(s): F17.200 - Nicotine dependence, unspecified, uncomplicated (7) ETOH abuse Status: Acute Category: Social Hx Code(s): F10.10 - Alcohol abuse, uncomplicated (8) Abscess of right foot Status: Acute Category: Medical Code(s): L02.611 - Cutaneous abscess of right foot (9) Hypertension Status: Acute Category: Medical Code(s): I10 - Essential (primary) hypertension (10) Peripheral arterial disease with history of revascularization Status: Acute Category: Medical Code(s): I73.9 - Peripheral vascular disease, unspecified; Z98.890 - Other specified postprocedural states (11) Contrast dye induced nephropathy Status: Acute Category: Medical Code(s): N14.1 - Nephropathy induced by other drugs, medicaments and biological substances; T50.8X5A - Adverse effect of diagnostic agents, initial encounter - Assessment and plan all Dx Assessment and Plan for all problems:: PT VANCOMYCIN TROUGH = 22.1 THIS AM. PT SRCR ALSO TRENDING UPWARD AND CRCL TRENDING DOWNWARD. WILL HOLD THIS AM'S DOSE, REDUCE DOSE TO 1500MG (15MG/KG) AND WILL RESTART TOMORROW AM AT 0900, PHARMACY TO FOLLOW DAILY
--- NOTE | 2022-01-12 10:46 | HMH.ACPN2 ---
Internal Medicine - PN: Subj *Date: 01/12/22 *Time: 10:47 Interval history: No new complaints. He states the foot is feeling little better. He has been getting up out of bed. Appetite is improved. PICC line was placed yesterday. Exam Vital signs and Labs for Last 24 Hours: Temp Pulse Resp BP Pulse Ox 97.8 F 94 H 18 192/88 H 95 01/12/22 08:00 01/12/22 08:00 01/12/22 08:00 01/12/22 08:00 01/12/22 08:00 Laboratory Results - last 24 hr 01/10/22 05:59: POC Glucose 146 H 01/10/22 17:48: POC Glucose 114 H 01/10/22 21:42: POC Glucose 149 H 01/11/22 07:12: POC Glucose 144 H 01/11/22 11:51: POC Glucose 161 H 01/11/22 17:30: POC Glucose 101 01/12/22 07:06: Sodium 132 L, Potassium 3.7, Chloride 103, Carbon Dioxide 21 L, Anion Gap 11.7, BUN 40 H, Creatinine 3.60 H D, Estimated Creat Clear 29, Estimated GFR 17 L*, Est GFR ( Amer) 21 L D, Glucose 121 H, Calcium 8.4, Total Bilirubin 0.8, AST 40 D, ALT 55, Alkaline Phosphatase 259 H, Total Protein 5.5 L, Albumin 2.4 L, Globulin 3.1, Albumin/Globulin Ratio 0.8 L 01/12/22 08:30: Vancomycin Trough 22.1 H I & O for Last 24 hours: Intake & Output 01/09/22 01/10/22 01/11/22 01/12/22 11:59 11:59 11:59 11:59 Intake Total 1240 / 1240 1900 / 1900 1035 / 1035 3121 / 3121 Output Total 660 / 660 310 / 310 570 / 570 1470 / 1470 Balance 580 / 580 1590 / 1590 465 / 465 1651 / 1651 Weight 226 lb 2 oz 223 lb 8 oz 223 lb 8.004 oz 223 lb 8.004 oz Microbiology Reports for the Last 24 Hours: Microbiology 01/08/22 12:19 Foot,Right - Right Second Gram Stain - Final 01/08/22 12:19 Foot,Right - Right Second Wound Culture - Preliminary Klebsiella pneumoniae 01/07/22 09:37 Blood Blood Culture - Final NO GROWTH AFTER 5 DAYS 01/07/22 09:37 Blood Blood Culture - Final NO GROWTH AFTER 5 DAYS 01/08/22 12:10 Ankle,Right Gram Stain - Final 01/08/22 12:10 Ankle,Right Abscess Culture - Preliminary 01/08/22 12:17 Foot,Right - Right Second Bone Culture - Preliminary Gram Positive Cocci 01/09/22 16:00 Ankle,Right Gram Stain - Final 01/09/22 16:00 Ankle,Right Wound Culture - Preliminary 01/09/22 16:00 Foot,Right - Wound Gram Stain - Final 01/09/22 16:00 Foot,Right - Wound Surgical Biopsy Culture - Preliminary NO GROWTH AFTER 48 HOURS 01/09/22 16:00 Foot,Right - Right Bone Culture - Preliminary NO GROWTH AFTER 48 HOURS Narrative: Alert and oriented. Lungs are clear. Heart is regular. Extremities no edema. Dressing clean and intact Assessment and Plan (1) Gangrene of toe of right foot Status: Acute Category: Medical Code(s): I96 - Gangrene, not elsewhere classified (2) Osteomyelitis Status: Acute Qualifiers: Osteomyelitis type: unspecified type Osteomyelitis location: foot Laterality: right Qualified Code(s): M86.9 - Osteomyelitis, unspecified Category: Medical Code(s): M86.9 - Osteomyelitis, unspecified (3) Lactic acid acidosis Status: Acute Category: Medical Code(s): E87.2 - Acidosis (4) Sepsis Status: Acute Qualifiers: Sepsis type: sepsis due to unspecified organism Sepsis acute organ dysfunction status: without acute organ dysfunction Qualified Code(s): A41.9 - Sepsis, unspecified organism Category: Medical Code(s): A41.9 - Sepsis, unspecified organism (5) New onset type 2 diabetes mellitus Status: Acute Category: Medical Code(s): E11.9 - Type 2 diabetes mellitus without complications (6) Tobacco use disorder Status: Acute Category: Medical Code(s): F17.200 - Nicotine dependence, unspecified, uncomplicated (7) ETOH abuse Status: Acute Category: Social Hx Code(s): F10.10 - Alcohol abuse, uncomplicated (8) Abscess of right foot Status: Acute Category: Medical Code(s): L02.611 - Cut
--- NOTE | 2022-01-12 15:39 | PC.NURSE ---
Patient has rested well this shift, has been treated for pain x1 this shift with good relief, dsg to right foot remains intact with no drainage noted, pt has been up to chair this shift, hypertensive today, MD notified and ordered norvasc, alert and oriented x4, remains on RA, HR reg, no edema noted, denies any CP or SOA, lungs cta, abd soft and nontender with active bowel sounds in all quads, voids per urinal w/o difficulty, urine yellow and clear, no s/s of distress noted, call light in reach with bed in lowest position.
[2022-01-13 04:00] VITALS: BP 166/85; PULSE 92; RESP 20; TEMP 36.8; O2SAT 97
[2022-01-13 04:51] VITALS: BMI 27.2
--- NOTE | 2022-01-13 05:57 | PC.NURSE ---
pt has rested well tonight. he has required prn medication for pain in his right foot twice so far this shift. He has had 70 ml of blood emptied from DM drain to the right foot this shift. dressing is clean, dry and intact. he remains on room air. he has not required insulin this shift. he has had 530 ml of urine output this shift. NS infusing at 150 ml/hr.
[2022-01-13 06:05] LABS: Alanine Aminotransferase 44 U/L (12-78); Albumin Level 2.5 g/dl (3.5-5.0); Albumin/Globulin Ratio 0.8 (1.1-1.8); Alkaline Phosphatase 269 U/L (38-126); Anion Gap 11.9 mEq/L (5-15); Aspartate Amino Transferase 33 U/L (17-59); Bilirubin,Total 0.7 mg/dl (0.2-1.3); Blood Urea Nitrogen 43 mg/dl (9-20); Calcium 8.3 mg/dl (8.4-10.2); Carbon Dioxide 19 mmol/L (22.0-30.0); Chloride 108 mmol/L (98-107); Creatinine Clearance Estimated 29 mL/min (50-200); Estimated Glomerular Filt Rate 17 ml/min (>60); GFR (African American) 20 ML/MIN (>60); Globulin 3.1 g/dL (1.3-3.2); Glucose 123 mg/dl (74-100); Potassium 3.9 mmoL/L (3.5-5.1); Sodium 135 mmol/L (136-145); Total Protein,Serum 5.6 g/dl (6.3-8.2)
[2022-01-13 06:23] LABS: Vancomycin,Trough 18.3 ug/mL (5.0-10.0)
[2022-01-13 08:00] VITALS: BP 164/79; PULSE 93; RESP 18; TEMP 36.6; O2SAT 97
--- NOTE | 2022-01-13 09:25 | HMH.ACPN2 ---
Internal Medicine - PN: Subj *Date: 01/13/22 *Time: 09:25 Interval history: No new complaints today. Exam Vital signs and Labs for Last 24 Hours: Temp Pulse Resp BP Pulse Ox 97.9 F 93 H 18 164/79 H 97 01/13/22 08:00 01/13/22 08:00 01/13/22 08:00 01/13/22 08:00 01/13/22 08:00 Laboratory Results - last 24 hr 01/13/22 05:45: Sodium 135 L, Potassium 3.9, Chloride 108 H, Carbon Dioxide 19 L, Anion Gap 11.9, BUN 43 H, Creatinine 3.70 H, Estimated Creat Clear 29, Estimated GFR 17 L*, Est GFR ( Amer) 20 L, Glucose 123 H, Calcium 8.3 L, Total Bilirubin 0.7, AST 33, ALT 44, Alkaline Phosphatase 269 H, Total Protein 5.6 L, Albumin 2.5 L, Globulin 3.1, Albumin/Globulin Ratio 0.8 L 01/13/22 05:45: Vancomycin Trough 18.3 H I & O for Last 24 hours: Intake & Output 01/10/22 01/11/22 01/12/22 01/13/22 11:59 11:59 11:59 11:59 Intake Total 1900 / 1900 1035 / 1035 3121 / 3121 4264 / 4264 Output Total 310 / 310 570 / 570 1470 / 1470 1185 / 1185 Balance 1590 / 1590 465 / 465 1651 / 1651 3079 / 3079 Weight 223 lb 8 oz 223 lb 8.004 oz 223 lb 8.004 oz 223 lb 8.004 oz Microbiology Reports for the Last 24 Hours: Microbiology 01/09/22 16:00 Ankle,Right Gram Stain - Final 01/09/22 16:00 Ankle,Right Wound Culture - Preliminary Gram Positive Cocci 01/08/22 12:17 Foot,Right - Right Second Bone Culture - Preliminary Gram Positive Cocci Gram Negative Rods Gram Negative Rods#2 01/09/22 16:00 Foot,Right - Wound Gram Stain - Final 01/09/22 16:00 Foot,Right - Wound Surgical Biopsy Culture - Preliminary Gram Positive Cocci 01/09/22 16:00 Foot,Right - Right Bone Culture - Preliminary NO GROWTH AFTER 72 HOURS 01/08/22 12:19 Foot,Right - Right Second Gram Stain - Final 01/08/22 12:19 Foot,Right - Right Second Wound Culture - Preliminary Klebsiella pneumoniae 01/07/22 09:37 Blood Blood Culture - Final NO GROWTH AFTER 5 DAYS 01/07/22 09:37 Blood Blood Culture - Final NO GROWTH AFTER 5 DAYS 01/08/22 12:10 Ankle,Right Gram Stain - Final 01/08/22 12:10 Ankle,Right Abscess Culture - Preliminary Narrative: Alert and oriented. Lungs are clear. Heart is regular with no ectopy. Abdomen soft and nondistended with no tenderness. Dressing to right foot is clean and dry. Assessment and Plan (1) Gangrene of toe of right foot Status: Acute Category: Medical Code(s): I96 - Gangrene, not elsewhere classified (2) Osteomyelitis Status: Acute Qualifiers: Osteomyelitis type: unspecified type Osteomyelitis location: foot Laterality: right Qualified Code(s): M86.9 - Osteomyelitis, unspecified Category: Medical Code(s): M86.9 - Osteomyelitis, unspecified (3) Lactic acid acidosis Status: Acute Category: Medical Code(s): E87.2 - Acidosis (4) Sepsis Status: Acute Qualifiers: Sepsis type: sepsis due to unspecified organism Sepsis acute organ dysfunction status: without acute organ dysfunction Qualified Code(s): A41.9 - Sepsis, unspecified organism Category: Medical Code(s): A41.9 - Sepsis, unspecified organism (5) New onset type 2 diabetes mellitus Status: Acute Category: Medical Code(s): E11.9 - Type 2 diabetes mellitus without complications (6) Tobacco use disorder Status: Acute Category: Medical Code(s): F17.200 - Nicotine dependence, unspecified, uncomplicated (7) ETOH abuse Status: Acute Category: Social Hx Code(s): F10.10 - Alcohol abuse, uncomplicated (8) Abscess of right foot Status: Acute Category: Medical Code(s): L02.611 - Cutaneous abscess of right foot (9) Hypertension Status: Acute Category: Medical Code(s): I10 - Essential (primary) hypertensio
--- NOTE | 2022-01-13 15:38 | PC.NURSE ---
dressing changed per order to right foot; patient tolerated well.
[2022-01-13 16:00] VITALS: BP 176/90; PULSE 90; RESP 20; TEMP 36.4; O2SAT 97
[2022-01-13 20:00] VITALS: BP 186/87; PULSE 95; RESP 20; TEMP 36.8; O2SAT 98
[2022-01-13 21:26] LABS: POC Glucose,Bedside 112 (70-110)
[2022-01-14 00:38] LABS: POC Glucose,Bedside 133 (70-110)
[2022-01-14 00:38] LABS: POC Glucose,Bedside 119 (70-110)
[2022-01-14 00:38] LABS: POC Glucose,Bedside 125 (70-110)
[2022-01-14 00:38] LABS: POC Glucose,Bedside 127 (70-110)
[2022-01-14 04:00] VITALS: BP 152/82; PULSE 97; RESP 22; TEMP 36.7; O2SAT 95
--- NOTE | 2022-01-14 04:00 | PC.NURSE ---
PT HAS HAD MORE PAIN IN HIS RIGHT FOOT THAN HE DID LAST NIGHT. HAS RECEIVED PRN PAIN MEDICATION. DRESSING AND HORACE BANDAGE NOTED ON RIGHT FOOT WITH DM DRAIN, DRAINING SANGUINEOUS FLUID-TOTAL DRAINAGE OUTPUT 15 ML. PICC LINE DRESSING CHANGED 01/14
[2022-01-14 05:40] VITALS: BMI 29.0
[2022-01-14 06:29] LABS: Basophils % 0.6 % (0.1-2.0); Eosinophils # 0.1 K/mm3 (0.0-0.4); Eosinophils % 1.3 % (0.1-12.0); Hematocrit 34.3 % (42.0-52.0); Hemoglobin 10.9 g/dL (14.1-18.0); Lymphocytes # 0.6 K/mm3 (0.7-4.5); Mean Corpuscular HGB Conc 31.7 g/dL (31.8-35.4); Mean Corpuscular Hemoglobin 30.8 pg (27.0-31.2); Mean Corpuscular Volume 97.2 fl (80-94); Mean Platelet Volume 8.7 fl (7.4-10.4); Monocytes # 0.5 K/mm3 (0.1-1.0); Monocytes % 7.5 % (1.7-9.3); Neutrophils # 5.2 K/mm3 (1.8-7.8); Neutrophils % 80.7 % (37.0-80.0); Platelet Count 354 K/mm3 (142-424); Red Blood Count 3.52 M/mm3 (4.60-6.20); Red Cell Distribution Width 13.6 % (11.5-17.5); White Blood Count 6.4 K/mm3 (4.8-10.8)
[2022-01-14 06:38] LABS: Anion Gap 12.1 mEq/L (5-15); Blood Urea Nitrogen 43 mg/dl (9-20); Calcium 8.3 mg/dl (8.4-10.2); Carbon Dioxide 17 mmol/L (22.0-30.0); Chloride 111 mmol/L (98-107); Creatinine Clearance Estimated 28 mL/min (50-200); Estimated Glomerular Filt Rate 15 ml/min (>60); GFR (African American) 18 ML/MIN (>60); Glucose 120 mg/dl (74-100); Potassium 4.1 mmoL/L (3.5-5.1); Sodium 136 mmol/L (136-145)
--- NOTE | 2022-01-14 06:41 | PC.NURSE ---
PICC LINE DRESSING CHANGED AT THIS TIME
[2022-01-14 06:44] LABS: POC Glucose,Bedside 123 (70-110)
--- NOTE | 2022-01-14 06:54 | PC.NURSE ---
SPOKE WITH DR VARELA AT THIS TIME. REPORTED CRITICAL CREATININE 4.0.NO NEW ORDERS AT THIS TIME.
[2022-01-14 07:04] LABS: Vancomycin,Trough 15.5 ug/mL (5.0-10.0)
--- NOTE | 2022-01-14 07:26 | PC.NURSE ---
[facility]watch consulted for [facility]. Hold for now and wait for in house pharmacy to consult.
[2022-01-14 08:00] VITALS: BP 193/91; PULSE 100; RESP 20; TEMP 36.7; O2SAT 91
--- NOTE | 2022-01-14 08:15 | HMH.PHACONS ---
- Pharmacy Consult Date: 01/14/22 Time: 08:15 Referring provider: DR. VARELA Reason for Consult:: VANCOMYCIN TROUGH LEVEL Allergies and ADEs:: Allergies Allergy/AdvReac Type Severity Reaction Status Date / Time Penicillins Allergy Unknown Unknown Verified 01/07/22 09:54 allergy reaction Home Medications:: Home Medications Medication Instructions Recorded Confirmed Type No Known Home Medications 01/07/22 01/07/22 History Height: 1.93 m Weight: 107.91 kg Laboratory Results:: Laboratory Results - last 24 hr 01/12/22 20:14: POC Glucose 133 H 01/13/22 05:34: POC Glucose 119 H 01/13/22 11:58: POC Glucose 125 H 01/13/22 17:01: POC Glucose 127 H 01/13/22 21:19: POC Glucose 112 H 01/14/22 06:10: WBC 6.4 D, RBC 3.52 L, Hgb 10.9 L, Hct 34.3 L, MCV 97.2 H, MCH 30.8, MCHC 31.7 L, RDW 13.6, Plt Count 354 D, MPV 8.7, Neut % (Auto) 80.7 H, Lymph % (Auto) 10.0, [place] % (Auto) 7.5, Eos % (Auto) 1.3, Baso % (Auto) 0.6, Neut # (Auto) 5.2, Lymph # (Auto) 0.6 L, [place] # (Auto) 0.5, Eos # (Auto) 0.1, Baso # (Auto) 0.0 01/14/22 06:10: Sodium 136, Potassium 4.1, Chloride 111 H, Carbon Dioxide 17 L, Anion Gap 12.1, BUN 43 H, Creatinine 4.00 H, Estimated Creat Clear 28, Estimated GFR 15 L*, Est GFR ( Amer) 18 L*, Glucose 120 H, Calcium 8.3 L, C-Reactive Protein 109.0 H 01/14/22 06:10: Vancomycin Trough 15.5 H 01/14/22 06:28: POC Glucose 123 H Medical History: Reports:: Hypertension Denies:: Anxiety, Atherosclerotic Heart Disease, Diabetes Mellitus Type 2, Lung Disease Assessment and Plan (1) Gangrene of toe of right foot Status: Acute Category: Medical Code(s): I96 - Gangrene, not elsewhere classified (2) Osteomyelitis Status: Acute Qualifiers: Osteomyelitis type: unspecified type Osteomyelitis location: foot Laterality: right Qualified Code(s): M86.9 - Osteomyelitis, unspecified Category: Medical Code(s): M86.9 - Osteomyelitis, unspecified (3) Lactic acid acidosis Status: Acute Category: Medical Code(s): E87.2 - Acidosis (4) Sepsis Status: Acute Qualifiers: Sepsis type: sepsis due to unspecified organism Sepsis acute organ dysfunction status: without acute organ dysfunction Qualified Code(s): A41.9 - Sepsis, unspecified organism Category: Medical Code(s): A41.9 - Sepsis, unspecified organism (5) New onset type 2 diabetes mellitus Status: Acute Category: Medical Code(s): E11.9 - Type 2 diabetes mellitus without complications (6) Tobacco use disorder Status: Acute Category: Medical Code(s): F17.200 - Nicotine dependence, unspecified, uncomplicated (7) ETOH abuse Status: Acute Category: Social Hx Code(s): F10.10 - Alcohol abuse, uncomplicated (8) Abscess of right foot Status: Acute Category: Medical Code(s): L02.611 - Cutaneous abscess of right foot (9) Hypertension Status: Acute Category: Medical Code(s): I10 - Essential (primary) hypertension (10) Peripheral arterial disease with history of revascularization Status: Acute Category: Medical Code(s): I73.9 - Peripheral vascular disease, unspecified; Z98.890 - Other specified postprocedural states (11) Contrast dye induced nephropathy Status: Acute Category: Medical Code(s): N14.1 - Nephropathy induced by other drugs, medicaments and biological substances; T50.8X5A - Adverse effect of diagnostic agents, initial encounter - Assessment and plan all Dx Assessment and Plan for all problems:: BASED ON PATIENT FACTORS AND VANCOMYCIN TROUGH LEVEL OF 15.5 THIS MORNING, WILL HOLD TODAY'S DOSE AND OBTAIN ANOTHER TROUGH LEVEL ALONG WITH BMP TOMORROW MORNING AND WILL ADJUST DOSE AT THAT POINT. -DAMARIS ANN PHARMD
--- NOTE | 2022-01-14 08:42 | XR_ITS ---
FINAL REPORT CLINICAL HISTORY: Post op I D, amp COMPARISON: January 09, 2022 FINDINGS: RIGHT ANKLE: Three views of the right ankle were obtained. There has been amputation at the level of the tarsometatarsal joints. There are overlying skin erich. A surgical drain is present. There are antibiotic seed implants. IMPRESSION: Postoperative changes, similar to the prior exam. Reviewed, Interpreted and Dictated by [place] MD Transcribed by Angel Borjas Authenticated and [facility]
--- NOTE | 2022-01-14 08:45 | HMH.ORTHPN ---
Subjective Date: 01/14/22 Time: 07:55 Principal diagnosis: Right gas gangrene infection Interval history: Patient resting comfortably at bedside. Reports a little appetite today. Patient reports pain has dramatically improved but still noted to distal flap. Discussed results of the Agram and gangrene. Plan to take back to OR for I&D, surgical debride the non-viable soft tissue and do bone biospy. PN: Obj Ex Vital signs: Temp Pulse Resp BP Pulse Ox 98.1 F 97 H 22 152/82 H 95 01/14/22 04:00 01/14/22 04:00 01/14/22 04:00 01/14/22 04:00 01/14/22 04:00 - Constitutional no acute distress - Routine HEENT Exam Head: Present: normocephalic - Routine Respiratory Exam Present: accessory muscle use - Routine Cardiovascular Exam Present: RRR - Routine Abdominal Exam Present: soft - Routine Extremities Exam Present: edema (right distal foot, amp flap), amputation (right midfoot/lisfranc amp). Absent: extremity cold to touch - Detailed Lower Extremity Exam Top foot image: 1 - R midfoot amp. I&D to medial ankle, lateral ankle and dorsal foot. DM drain intact. Skin erich and sutures intact to plantar foot flap and some I&D sites. Some weeping noted to openings of medial ankle. No purulence expressed. Dusky gangrenous changes to right amp flap, less to medial and lateral incisions. Pain and edema to RLE has improved, but still noted to anterior and medial ankle, dorsal foot. - Routine Skin Exam Present: erythema (right amp site), gangrene (amp site is dusky with gangrenous changes distal skin flap) Progress Note: A&P (1) Gangrene of toe of right foot Status: Acute (2) Osteomyelitis Status: Acute (3) Lactic acid acidosis Status: Acute (4) Sepsis Status: Acute (5) New onset type 2 diabetes mellitus Status: Acute (6) Tobacco use disorder Status: Acute (7) ETOH abuse Status: Acute (8) Abscess of right foot Status: Acute (9) Hypertension Status: Acute (10) Peripheral arterial disease with history of revascularization Status: Acute (11) Contrast dye induced nephropathy Status: Acute Assessment and Plan for All Diagnoses:: 01/14/22: Podiatry dressing change -skin cleansed with betadine. The wound was flushed with saline and explored with hemostat at the bedside. No more purulence noted. -betadine soaked gauze, dry gauze, kerlix, luis applied. -The wound and incision sites looks less red and swollen, however pain and the distal amp flap is dusky and starting to . Like of demarcation noted. -Plan for I%D surgery tomorrow. -Patient is high risk for further debridement, amputation. Will attempt limb salvage. -Patient understands it will take a few days to weeks for soft tissue to heal/demarcate. He understands he may need more debridement or surgery in the future. -Recommend PICC, IV Abx x4-6 weeks. -Will need daily dressing changes: betadine soaked gauze, dry gauze, abd pads, kerlix, luis. DM drain mgmt. Microbiology 01/09/22 16:00 Foot,Right - Wound Gram Stain - Final 01/09/22 16:00 Foot,Right - Wound Surgical Biopsy Culture - Final Streptococcus anginosus 01/09/22 16:00 Ankle,Right Gram Stain - Final 01/09/22 16:00 Ankle,Right Wound Culture - Final Streptococcus anginosus 01/08/22 12:19 Foot,Right - Right Second Gram Stain - Final 01/08/22 12:19 Foot,Right - Right Second Wound Culture - Final Klebsiella pneumoniae Streptococcus anginosus 01/08/22 12:10 Ankle,Right Gram Stain - Final 01/08/22 12:10 Ankle,Right Abscess Culture - Final Streptococcus anginosus 01/07/22 09:37 Blood Blood Culture - Final NO GROWTH AFTER 5 DAYS 01/09/22 16:00 Foot,Right - Right Bone Culture - Preli
[2022-01-14 08:48] LABS: Erythrocyte Sedimentation Rate 120 mm/hr (0-20)
--- NOTE | 2022-01-14 13:18 | HMH.ACPN2 ---
<Meli Breen - Last Filed: 01/14/22 20:34> Internal Medicine - PN: Subj *Date: 01/14/22 *Time: 20:34 Interval history: I saw pt this AM; Dr. Gonzales had already been in and completed dressing change on the right foot; He is not eating much; just has no appetite; he continues with pain in the right foot; he denies CP and SOB; requests diet Pepluis carlos or Dr. Ortiz Exam Vital signs and Labs for Last 24 Hours: Temp Pulse Resp BP Pulse Ox 98.1 F 100 H 20 193/91 H 91 L 01/14/22 08:00 01/14/22 08:00 01/14/22 08:00 01/14/22 08:00 01/14/22 08:00 Laboratory Results - last 24 hr 01/12/22 20:14: POC Glucose 133 H 01/13/22 05:34: POC Glucose 119 H 01/13/22 11:58: POC Glucose 125 H 01/13/22 17:01: POC Glucose 127 H 01/13/22 21:19: POC Glucose 112 H 01/14/22 06:10: WBC 6.4 D, RBC 3.52 L, Hgb 10.9 L, Hct 34.3 L, MCV 97.2 H, MCH 30.8, MCHC 31.7 L, RDW 13.6, Plt Count 354 D, MPV 8.7, Neut % (Auto) 80.7 H, Lymph % (Auto) 10.0, [place] % (Auto) 7.5, Eos % (Auto) 1.3, Baso % (Auto) 0.6, Neut # (Auto) 5.2, Lymph # (Auto) 0.6 L, [place] # (Auto) 0.5, Eos # (Auto) 0.1, Baso # (Auto) 0.0, ESR 120 H 01/14/22 06:10: Sodium 136, Potassium 4.1, Chloride 111 H, Carbon Dioxide 17 L, Anion Gap 12.1, BUN 43 H, Creatinine 4.00 H, Estimated Creat Clear 28, Estimated GFR 15 L*, Est GFR ( Amer) 18 L*, Glucose 120 H, Calcium 8.3 L, C-Reactive Protein 109.0 H 01/14/22 06:10: Vancomycin Trough 15.5 H 01/14/22 06:28: POC Glucose 123 H I & O for Last 24 hours: Intake & Output 01/12/22 01/13/22 01/14/22 01/15/22 11:59 11:59 11:59 11:59 Intake Total 3121 / 3121 4264 / 4264 2800 / 2800 Output Total 1470 / 1470 1185 / 1185 1615 / 1615 Balance 1651 / 1651 3079 / 3079 1185 / 1185 Weight 223 lb 8.004 oz 223 lb 8.004 oz 237 lb 14.4 oz Microbiology Reports for the Last 24 Hours: Microbiology 01/08/22 12:17 Foot,Right - Right Second Bone Culture - Final Enterococcus faecalis/faecium Proteus vulgaris/penneri Enterobacter cloacae 01/09/22 16:00 Foot,Right - Wound Gram Stain - Final 01/09/22 16:00 Foot,Right - Wound Surgical Biopsy Culture - Final Streptococcus anginosus 01/09/22 16:00 Ankle,Right Gram Stain - Final 01/09/22 16:00 Ankle,Right Wound Culture - Final Streptococcus anginosus 01/09/22 16:00 Foot,Right - Right Bone Culture - Preliminary NO GROWTH AFTER 4 DAYS 01/08/22 12:19 Foot,Right - Right Second Gram Stain - Final 01/08/22 12:19 Foot,Right - Right Second Wound Culture - Final Klebsiella pneumoniae Streptococcus anginosus 01/08/22 12:10 Ankle,Right Gram Stain - Final 01/08/22 12:10 Ankle,Right Abscess Culture - Final Streptococcus anginosus - Constitutional no acute distress - *Routine Respiratory Exam Present: CTA bilaterally (A&P) - *Routine Cardiovascular Exam Present: RRR - *Routine Abdominal Exam Present: soft, normoactive bowel sounds. Absent: tenderness - *Routine Extremities Exam Present: pulses intact (left foot). Absent: calf tenderness Comments: right foot with new dressing covered with [place]; left leg without edema - *Routine Neurological Exam Present: alert, oriented X3 Assessment and Plan (1) Gangrene of toe of right foot Status: Acute Category: Medical Code(s): I96 - Gangrene, not elsewhere classified (2) Osteomyelitis Status: Acute Qualifiers: Osteomyelitis type: unspecified type Osteomyelitis location: foot Laterality: right Qualified Code(s): M86.9 - Osteomyelitis, unspecified Category: Medical Code(s): M86.9 - Osteomyelitis, unspecified (3) Lactic acid acidosis Status: Acute Category: Medical Code(s): E87.2 - Acidosis (4) Sepsis Status: Acute Qualifiers: Se
[2022-01-14 16:00] VITALS: BP 186/84; PULSE 95; RESP 18; TEMP 36.4; O2SAT 94
[2022-01-14 17:33] LABS: POC Glucose,Bedside 117 (70-110)
[2022-01-14 19:49] VITALS: BP 164/91; PULSE 106; RESP 18; TEMP 36.6; O2SAT 94
[2022-01-14 20:07] LABS: POC Glucose,Bedside 121 (70-110)
[2022-01-15] VITALS (17 sets, daily range): BP systolic 140–195; BP diastolic 61–104; PULSE 85–99; RESP 14–20; TEMP 36.2–37.2; O2SAT 92–99; BMI 28.6
[2022-01-15 00:34] LABS: POC Glucose,Bedside 112 (70-110)
[2022-01-15 06:45] LABS: POC Glucose,Bedside 113 (70-110)
[2022-01-15 08:17] LABS: Chloride 114 mmol/L (98-107); Potassium 4.3 mmoL/L (3.5-5.1); Sodium 138 mmol/L (136-145)
--- NOTE | 2022-01-15 08:17 | HMH.ORTHPN ---
Subjective Date: 01/15/22 Time: 07:55 Principal diagnosis: Right gas gangrene infection Interval history: Patient resting comfortably at the bedside. No new complaints. All questions answered. Patient is n.p.o. and ready for surgery later today. PN: Obj Ex Vital signs: Temp Pulse Resp BP Pulse Ox 98.9 F 96 H 18 156/79 H 92 L 01/15/22 03:34 01/15/22 03:34 01/15/22 03:34 01/15/22 03:34 01/15/22 03:34 - Constitutional no acute distress - Routine HEENT Exam Head: Present: normocephalic - Routine Cardiovascular Exam Present: RRR - Routine Abdominal Exam Present: soft - Routine Extremities Exam Present: edema, amputation - Detailed Lower Extremity Exam Top foot image: 1 - Dressing and DM drain are clean dry and intact. Dressing not removed. Plan for surgery today. Progress Note: A&P (1) Gangrene of toe of right foot Status: Acute (2) Osteomyelitis Status: Acute (3) Lactic acid acidosis Status: Acute (4) Sepsis Status: Acute (5) New onset type 2 diabetes mellitus Status: Acute (6) Tobacco use disorder Status: Acute (7) ETOH abuse Status: Acute (8) Abscess of right foot Status: Acute (9) Hypertension Status: Acute (10) Peripheral arterial disease with history of revascularization Status: Acute (11) Contrast dye induced nephropathy Status: Acute Assessment and Plan for All Diagnoses:: Microbiology 01/09/22 16:00 Foot,Right - Wound Gram Stain - Final 01/09/22 16:00 Foot,Right - Wound Surgical Biopsy Culture - Final Streptococcus anginosus 01/09/22 16:00 Foot,Right - Right Bone Culture - Final NO GROWTH AFTER 5 DAYS 01/09/22 16:00 Ankle,Right Gram Stain - Final 01/09/22 16:00 Ankle,Right Wound Culture - Final Streptococcus anginosus 01/08/22 12:19 Foot,Right - Right Second Gram Stain - Final 01/08/22 12:19 Foot,Right - Right Second Wound Culture - Final Klebsiella pneumoniae Streptococcus anginosus 01/08/22 12:17 Foot,Right - Right Second Bone Culture - Final Enterococcus faecalis/faecium Proteus vulgaris/penneri Enterobacter cloacae 01/08/22 12:10 Ankle,Right Gram Stain - Final 01/08/22 12:10 Ankle,Right Abscess Culture - Final Streptococcus anginosus 01/15/22: We discussed conservative versus surgical treatment options. Concern over the wound flap viability. Patient did have runoff with successful revascularization last week. Overall the lower extremity looks much improved and a more salvageable situation. Explained the distal flap is dying from where there was no blood flow. My recommendation is surgery for debridement and removal of the nonviable gangrenous tissue. We will recheck x-ray to make sure no new cast or underlying bone changes. ESR and CRP elevated but trending down. Conservative treatment options for cellulitis include local wound care, oral and IV antibiotics. Discussed that patient will need short fracture boot for partial weightbearing status postop with crutches or walker. We discussed surgical intervention for amputation of the right forefoot/midfoot due to the gas gangrene, osteomyelitis and lack of soft tissue coverage. Patient understands that there is a chance that the foot may change shape after surgery. Patient also understands that they could have wound healing complications including delayed healing and infection. We discussed that if the wound does not heal, it is possible that they may need a more proximal amputation and could result in further loss of partial foot or loss of leg. We discussed the risks and benefits in great detail. Other surgical ri
[2022-01-15 08:20] LABS: Anion Gap 11.3 mEq/L (5-15); Blood Urea Nitrogen 38 mg/dl (9-20); Calcium 8.5 mg/dl (8.4-10.2); Carbon Dioxide 17 mmol/L (22.0-30.0); Creatinine Clearance Estimated 28 mL/min (50-200); Estimated Glomerular Filt Rate 15 ml/min (>60); GFR (African American) 18 ML/MIN (>60); Glucose 112 mg/dl (74-100)
--- NOTE | 2022-01-15 10:17 | HMH.ACPN2 ---
<Meli Breen - Last Filed: 01/15/22 10:18> Internal Medicine - PN: Subj *Date: 01/15/22 *Time: 10:18 Interval history: Plan is for patient to return to surgery today for further clean up of the foot. He continues to have foot pain. He denies chest pain or shortness of breath. Creatinine again is 4 this AM. Exam Vital signs and Labs for Last 24 Hours: Temp Pulse Resp BP Pulse Ox 97.6 F 94 H 20 188/87 H 97 01/15/22 08:00 01/15/22 08:00 01/15/22 08:00 01/15/22 08:00 01/15/22 08:00 Laboratory Results - last 24 hr 01/14/22 12:15: POC Glucose 121 H 01/14/22 17:23: POC Glucose 117 H 01/14/22 20:31: POC Glucose 112 H 01/15/22 06:27: POC Glucose 113 H 01/15/22 06:32: Sodium 138, Potassium 4.3, Chloride 114 H, Carbon Dioxide 17 L, Anion Gap 11.3, BUN 38 H, Creatinine 4.00 H, Estimated Creat Clear 28, Estimated GFR 15 L*, Est GFR ( Amer) 18 L*, Glucose 112 H, Calcium 8.5 01/15/22 06:32: Vancomycin Trough 13.0 H I & O for Last 24 hours: Intake & Output 01/12/22 01/13/22 01/14/22 01/15/22 11:59 11:59 11:59 11:59 Intake Total 3121 / 3121 4264 / 4264 2800 / 2800 240 / 240 Output Total 1470 / 1470 1185 / 1185 1615 / 1615 1530 / 1530 Balance 1651 / 1651 3079 / 3079 1185 / 1185 -1290 / -1290 Weight 223 lb 8.004 oz 223 lb 8.004 oz 237 lb 14.4 oz 235 lb 2 oz Microbiology Reports for the Last 24 Hours: Microbiology 01/09/22 16:00 Foot,Right - Right Bone Culture - Final NO GROWTH AFTER 5 DAYS 01/08/22 12:17 Foot,Right - Right Second Bone Culture - Final Enterococcus faecalis/faecium Proteus vulgaris/penneri Enterobacter cloacae 01/09/22 16:00 Foot,Right - Wound Gram Stain - Final 01/09/22 16:00 Foot,Right - Wound Surgical Biopsy Culture - Final Streptococcus anginosus 01/09/22 16:00 Ankle,Right Gram Stain - Final 01/09/22 16:00 Ankle,Right Wound Culture - Final Streptococcus anginosus - Constitutional no acute distress - *Routine Respiratory Exam Present: CTA bilaterally (Anteriorly and posteriorly) - *Routine Cardiovascular Exam Present: RRR - *Routine Abdominal Exam Present: soft, normoactive bowel sounds. Absent: tenderness, distended - *Routine Extremities Exam Absent: calf tenderness Comments: Right foot with dressing. Foul drainage noted. - *Routine Neurological Exam Present: alert, oriented X3 Assessment and Plan (1) Gangrene of toe of right foot Status: Acute Category: Medical Code(s): I96 - Gangrene, not elsewhere classified (2) Osteomyelitis Status: Acute Qualifiers: Osteomyelitis type: unspecified type Osteomyelitis location: foot Laterality: right Qualified Code(s): M86.9 - Osteomyelitis, unspecified Category: Medical Code(s): M86.9 - Osteomyelitis, unspecified (3) Lactic acid acidosis Status: Acute Category: Medical Code(s): E87.2 - Acidosis (4) Sepsis Status: Acute Qualifiers: Sepsis type: sepsis due to unspecified organism Sepsis acute organ dysfunction status: without acute organ dysfunction Qualified Code(s): A41.9 - Sepsis, unspecified organism Category: Medical Code(s): A41.9 - Sepsis, unspecified organism (5) New onset type 2 diabetes mellitus Status: Acute Category: Medical Code(s): E11.9 - Type 2 diabetes mellitus without complications (6) Tobacco use disorder Status: Acute Category: Medical Code(s): F17.200 - Nicotine dependence, unspecified, uncomplicated (7) ETOH abuse Status: Acute Category: Social Hx Code(s): F10.10 - Alcohol abuse, uncomplicated (8) Abscess of right foot Status: Acute Category: Medical Code(s): L02.611 - Cutaneous abscess of right foot (9) Hypertension Status: Acute Category: Medical Code(s): I10 - Essential (primary) hypertension (10) Peripher
--- NOTE | 2022-01-15 10:35 | P.CONPHA_ITS ---
- Pharmacy Consult Date: 01/15/22 Time: 10:35 Referring provider: DR. VARELA Reason for Consult:: VANCOMYCIN DOSING Allergies and ADEs:: Allergies Allergy/AdvReac Type Severity Reaction Status Date / Time Penicillins Allergy Unknown Unknown Verified 01/07/22 09:54 allergy reaction Home Medications:: Home Medications Medication Instructions Recorded Confirmed Type No Known Home Medications 01/07/22 01/07/22 History Height: 1.93 m Weight: 106.651 kg Laboratory Results:: Laboratory Results - last 24 hr 01/14/22 12:15: POC Glucose 121 H 01/14/22 17:23: POC Glucose 117 H 01/14/22 20:31: POC Glucose 112 H 01/15/22 06:27: POC Glucose 113 H 01/15/22 06:32: Sodium 138, Potassium 4.3, Chloride 114 H, Carbon Dioxide 17 L, Anion Gap 11.3, BUN 38 H, Creatinine 4.00 H, Estimated Creat Clear 28, Estimated GFR 15 L*, Est GFR ( Amer) 18 L*, Glucose 112 H, Calcium 8.5 01/15/22 06:32: Vancomycin Trough 13.0 H Medical History: Reports:: Hypertension Denies:: Anxiety, Atherosclerotic Heart Disease, Diabetes Mellitus Type 2, Lung Disease Assessment and Plan (1) Gangrene of toe of right foot Status: Acute Category: Medical Code(s): I96 - Gangrene, not elsewhere clas sified (2) Osteomyelitis Status: Acute Qualifiers: Osteomyelitis type: unspecified type Osteomyelitis location: foot Laterality: right Qualified Code(s): M86.9 - Osteomyelitis, unspecified Category: Medical Code(s): M86.9 - Osteomyelitis, unspecified (3) Lactic acid acidosis Status: Acute Category: Medical Code(s): E87.2 - Acidosis (4) Sepsis Status: Acute Qualifiers: Sepsis type: sepsis due to unspecified organism Sepsis acute organ dysfunction status: without acute organ dysfunction Qualified Code(s): A41.9 - Sepsis, unspecified organism Category: Medical Code(s): A41.9 - Sepsis, unspecified organism (5) New onset type 2 diabetes mellitus Status: Acute Category: Medical Code(s): E11.9 - Type 2 diabetes mellitus without complications (6) Tobacco use disorder Status: Acute Category: Medical Code(s): F17.200 - Nicotine dependence, unspecified, uncomplicated (7) ETOH abuse Status: Acute Category: Social Hx Code(s): F10.10 - Alcohol abuse, uncomplicated (8) Abscess of right foot Status: Acute Category: Medical Code(s): L02.611 - Cutaneous abscess of right foot (9) Hypertension Status: Acute Category: Medical Code(s): I10 - Essential (primary) hypertension (10) Peripheral arterial disease with history of revascularization Status: Acute Category: Medical Code(s): I73.9 - Peripheral vascular disease, unspecified; Z98.890 - Other specified postprocedural states (11) Contrast dye induced nephropathy Status: Acute Category: Medical Code(s): N14.1 - Nephropathy induced by other drugs, medicaments and biological substances; T50.8X5A - Adverse effect of diagnostic agents, initial encounter - Assessment and plan all Dx Assessment and Plan for all problems:: CONTINUE TO HOLD VANCOMYCIN. WILL RECHECK TROUGH LEVEL IN AM.
[2022-01-15 11:22] LABS: POC Glucose,Bedside 124 (70-110)
--- NOTE | 2022-01-15 14:46 | P.PN_ITS ---
[facility] Anesthesia Checklist - Patient Identification Patient Identification: Arm Band, Verbal (Name & ) - Structural Data Admitted From: Inpatient Planned Operative Procedure/s: Right Foot I&D Consent for Planned Operative Procedure(s) Verified: Yes Verified Documents: Surgical Consent - NPO Status Verified Time NPO: 00:00 - Chart Verification Results Verified: CBC, BMP - Additional verifications Anesthesia Reactions: No - Airway Assessment C-Spine Mobility Assessed: Yes TMJ Mobility Assessed: Yes Dentition: Good Dentition - Neurological Assessment Level of Consciousness: Awake, Alert, Appropriate - Anesthesia Plan Anesthesia Risk discussed: Yes ASA Class: III Anesthesia Type: General [facility] History I have reviewed the patient's past medical history: Yes Medical History: Reports:: Hypertension Denies:: Anxiety, Atherosclerotic Heart Disease, Diabetes Mellitus Type 2, Lung Disease *Have you ever received a pneumonia vaccine?: No *Have you received a flu vaccine this season?: No Other Medical History: Reports: Other (Gout). Denies: Thyroid Disease Anesthesia experience/problems:: nac Other Surgeries: Yes: No Previous Surgery - *Social History Last grade of school completed: High school graduate Smoking Status: Current every day smoker Tobacco Type: cigarettes Alcohol Intake: current Alcohol Intake Frequency:: 3 or more drinks per day (beer) Substance Use Type: denies use *Occupational Status:: employed ([employer]) Household Members: none *Travel in the last 8 weeks: None - Psychiatric History Pschychiatric History:: Denies:: Anxiety Family Hx:: No significant family history
--- NOTE | 2022-01-15 16:53 | HMH.OPNOTE ---
Date of procedure: 01/15/22 Pre-op Diagnosis:: 1. Right foot gangrene 2. 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 Right diabetic foot infection, cellulitis 4. Right PAD Post-op Diagnosis:: Same Procedure performed:: 1. Right ankle incision and drainage 2. Right foot wide deep irrigation and debridement 3. Extensive soft tissue rearrangement/advancement 4. Application of antibiotic beads 5. Application of DM drain 6. Secondary closure of surgical wound with application of Integra Bilayer Wound Graft Surgeon:: Brianna Gonzales DPM Anesthesia: LMA Estimated blood loss (mL): 20 Clinical Note:: This is a planned staged surgery. Patient underwent I&D and right second toe amputation 01/08/2022 with wash out and flap/soft tissue rearrangment 01/09/22. He also went re-vascularization 01/10/22. We discussed conservative versus surgical treatment options. Concern over the extensive soft tissue destruction. Conservative treatment options for cellulitis include local wound care, oral and IV antibiotics. Discussed that patient will need short fracture boot for partial weightbearing status postop with crutches or walker. We discussed surgical intervention for wound debridement, I&D and lack of soft tissue coverage. Which would necessitate rotational skin advancement and possibly grafting. Patient understands that there is a chance that the foot may change shape after surgery. Patient also understands that they could have wound healing complications including delayed healing and infection. We discussed that if the wound does not heal, it is possible that they may need a more proximal amputation and could result in further loss of partial foot or loss of leg. We discussed the risks and benefits in great detail. Other surgical risks include: prolonged pain and swelling, further infection requiring oral or IV antibiotics, delay in healing of soft tissue or bone, nerve or blood vessel damage, CRPS/RSD, DVT, anesthesia complications, and even . All questions answered. Patient verbalized understanding. Consent obtained. Discussed plan of care with Dr. Lea. Operative findings:: There was some dusky gangrenous changes noted to the distal aspect of the amputation site. Some dusky changes along the medial and lateral ankle incisions. Skin sutures and erich intact. There was some skin sloughing with peeling blistery skin noted at the plantar medial aspect of the foot and ankle. Some sutures and erich were removed opening the plantar and distal foot flaps. The medial ankle incision was also opened. The wound was reevaluated. Antibiotic beads were removed. Wound was flushed. There was no alicia purulence or malodor expressed. No evidence of purulent drainage. The ankle incision tracked about 10 cm proximally of the posterior tibial tendon. Wound swab cultures taken. Depth was 3 cm. No tracking of the peroneal tendons laterally. Plantarly the previous incision was reexplored. Deep foot tissue cultures also taken. The entire plantar medial foot was filleted open with exposed anatomy including tendons, muscles and bones. There was not enough skin closure for a rotational flap. The plantar portion of the amp site was advanced dorsal and medial which did cover the majority of the foot. However there was a soft tissue defect over the medial foot which measured 4 x 2 x 3 cm full thickness over the talus and PT tendons, 100% granular. On the dorsal lateral aspect of the amputation site the skin here had been sharply excisionally debrided as well with 15 blade, forceps. Post debridement the wound edges had minimal bleeding, 100% granular wound base. There was a full thickness defect noted which measured 10.6 x 4.2 x2 cm over the lateral cuneiform bone, there was an area that tracked and connected to the plantarl skin incision by about 6 cm. *This case took 30 mins longer than normal due to extensive soft tissue damage secondary to infection and peripheral vascular/a
[2022-01-15 17:06] LABS: POC Glucose,Bedside 106 (70-110)
--- NOTE | 2022-01-15 17:12 | SUR.PHASEI ---
1659 BS obtained with result of Amanda. Carolann Terrell CRNA notified. No new orders given at this time.
--- NOTE | 2022-01-15 17:46 | SUR.PHASEI ---
1715 called and gave detailed report to gina Amaya/urology surgeon [id number] transported via bed to med/surg room. vital signs stable. denies pain. pt left in stable condition with gina Amaya/urology surgeon at bedside.
[2022-01-16 00:10] VITALS: BP 158/84; PULSE 86; RESP 18; TEMP 36.8; O2SAT 95
[2022-01-16 03:27] VITALS: BP 147/75; PULSE 91; RESP 18; TEMP 36.3; O2SAT 93
[2022-01-16 04:59] VITALS: BMI 28.7
--- NOTE | 2022-01-16 05:13 | PC.NURSE ---
Patient A&0 x3. Patient medicated for pain once thus far in shift. Dressing to rt foot is CDI. DM drain had 35ml sanguineous drainage this shift. No complaints at this time.
[2022-01-16 07:32] LABS: Chloride 116 mmol/L (98-107); Potassium 4.2 mmoL/L (3.5-5.1); Sodium 138 mmol/L (136-145)
[2022-01-16 07:34] LABS: Alkaline Phosphatase 194 U/L (38-126); Basophils # 0.1 K/mm3 (0-0.2); Basophils % 0.7 % (0.1-2.0); Bilirubin,Total 0.6 mg/dl (0.2-1.3); Eosinophils # 0.1 K/mm3 (0.0-0.4); Hematocrit 33.6 % (42.0-52.0); Hemoglobin 10.6 g/dL (14.1-18.0); Lymphocytes # 0.7 K/mm3 (0.7-4.5); Lymphocytes % 7.5 % (10-50); Mean Corpuscular HGB Conc 31.6 g/dL (31.8-35.4); Mean Corpuscular Hemoglobin 31.5 pg (27.0-31.2); Mean Corpuscular Volume 99.5 fl (80-94); Mean Platelet Volume 9.1 fl (7.4-10.4); Monocytes # 0.5 K/mm3 (0.1-1.0); Monocytes % 5.4 % (1.7-9.3); Neutrophils # 7.7 K/mm3 (1.8-7.8); Neutrophils % 85.5 % (37.0-80.0); Platelet Count 379 K/mm3 (142-424); Red Blood Count 3.37 M/mm3 (4.60-6.20); Red Cell Distribution Width 13.5 % (11.5-17.5)
[2022-01-16 07:35] LABS: Albumin Level 2.5 g/dl (3.5-5.0); Albumin/Globulin Ratio 0.8 (1.1-1.8); Blood Urea Nitrogen 40 mg/dl (9-20); Creatinine Clearance Estimated 29 mL/min (50-200); Estimated Glomerular Filt Rate 16 ml/min (>60); GFR (African American) 19 ML/MIN (>60); Globulin 3.1 g/dL (1.3-3.2); Total Protein,Serum 5.6 g/dl (6.3-8.2)
[2022-01-16 07:36] LABS: Alanine Aminotransferase 33 U/L (12-78); Anion Gap 10.2 mEq/L (5-15); Aspartate Amino Transferase 45 U/L (17-59); Carbon Dioxide 16 mmol/L (22.0-30.0); Glucose 129 mg/dl (74-100); MANUAL DIFFERENTIAL MANUAL DIFFERENTIAL (MANUAL DIFF)
[2022-01-16 07:40] LABS: C-Reactive Protein 67.6 mg/L (0-4)
[2022-01-16 08:00] VITALS: BP 170/93; PULSE 104; RESP 16; TEMP 36.7; O2SAT 95
[2022-01-16 08:05] LABS: Lymphocytes % 9 % (10-50); Monocytes % 5 % (2-9); Neutrophils % 86 % (42-76); RBC Morphology Normal; Total Cells Counted 100
[2022-01-16 08:06] LABS: Platelet Estimate Normal
[2022-01-16 08:07] LABS: Erythrocyte Sedimentation Rate 112 mm/hr (0-20)
--- NOTE | 2022-01-16 08:19 | HMH.ACPN2 ---
<Meli Breen - Last Filed: 01/16/22 08:19> Internal Medicine - PN: Subj *Date: 01/16/22 *Time: 08:19 Interval history: Patient had additional procedure yesterday per Dr. Gonzales with documentation as follows Date of procedure: 01/15/22 Pre-op Diagnosis:: 1. Right foot gangrene 2. 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 Right diabetic foot infection, cellulitis 4. Right PAD Post-op Diagnosis:: Same Procedure performed:: 1. Right ankle incision and drainage 2. Right foot wide deep irrigation and debridement 3. Extensive soft tissue rearrangement/advancement 4. Application of antibiotic beads 5. Application of DM drain 6. Secondary closure of surgical wound with application of Integra Bilayer Wound Graft Surgeon:: Brianna Gonzales DPM Patient states he has right foot pain. He is breathing okay. He denies chest pain. He ambulates to and from the bathroom. He is trying to eat better.Renal function is slightly improved with creatinine of 3.9 and BUN of 40. Blood sugars are stable. Exam Vital signs and Labs for Last 24 Hours: Temp Pulse Resp BP Pulse Ox 97.3 F L 91 H 18 147/75 H 93 L 01/16/22 03:27 01/16/22 03:27 01/16/22 03:27 01/16/22 03:27 01/16/22 03:27 Laboratory Results - last 24 hr 01/15/22 06:32: Carbon Dioxide 17 L, Anion Gap 11.3, BUN 38 H, Creatinine 4.00 H, Estimated Creat Clear 28, Estimated GFR 15 L*, Est GFR ( Amer) 18 L*, Glucose 112 H, Calcium 8.5 01/15/22 06:32: Vancomycin Trough 13.0 H 01/15/22 11:08: POC Glucose 124 H 01/15/22 16:59: POC Glucose 106 01/16/22 05:55: C-Reactive Protein 67.6 H D 01/16/22 05:55: WBC 9.0 D, RBC 3.37 L, Hgb 10.6 L, Hct 33.6 L, MCV 99.5 H, MCH 31.5 H, MCHC 31.6 L, RDW 13.5, Plt Count 379, MPV 9.1, Neut % (Auto) 85.5 H, Lymph % (Auto) 7.5 L, Giles % (Auto) 5.4, Eos % (Auto) 1.0, Baso % (Auto) 0.7, Neut # (Auto) 7.7, Lymph # (Auto) 0.7, Giles # (Auto) 0.5, Eos # (Auto) 0.1, Baso # (Auto) 0.1, Total Counted 100, Neutrophils % (Manual) 86 H, Lymphocytes % (Manual) 9 L, Monocytes % (Manual) 5, Platelet Estimate Normal, RBC Morphology Normal, ESR 112 H 01/16/22 05:55: Sodium 138, Potassium 4.2, Chloride 116 H, Carbon Dioxide 16 L, Anion Gap 10.2, BUN 40 H, Creatinine 3.90 H, Estimated Creat Clear 29, Estimated GFR 16 L*, Est GFR ( Amer) 19 L*, Glucose 129 H, Calcium 8.0 L, Total Bilirubin 0.6, AST 45, ALT 33, Alkaline Phosphatase 194 H, Total Protein 5.6 L, Albumin 2.5 L, Globulin 3.1, Albumin/Globulin Ratio 0.8 L I & O for Last 24 hours: Intake & Output 01/13/22 01/14/22 01/15/22 01/16/22 11:59 11:59 11:59 11:59 Intake Total 4264 / 4264 2800 / 2800 240 / 240 6744 / 6744 Output Total 1185 / 1185 1615 / 1615 1530 / 1530 980 / 980 Balance 3079 / 3079 1185 / 1185 -1290 / -1290 5764 / 5764 Weight 223 lb 8.004 oz 237 lb 14.4 oz 235 lb 2 oz 235 lb 9 oz Microbiology Reports for the Last 24 Hours: Microbiology 01/15/22 15:48 Ankle,Right Gram Stain - Final - Constitutional no acute distress Comments: Sitting on commode in the bathroom. - *Routine Respiratory Exam Present: CTA bilaterally (Anteriorly and posteriorly) - *Routine Cardiovascular Exam Present: RRR - *Routine Abdominal Exam Present: soft, normoactive bowel sounds. Absent: tenderness - *Routine Extremities Exam Present: edema (Right lower leg.) Comments: Dressing is clean and dry with drain - *Routine Neurological Exam Present: alert, oriented X3 Assessment and Plan (1) Gangrene of toe of right foot Status: Acute Category: Medical Code(s): I96 - Gangrene, not elsewhere classified (2) Osteomyelitis Status: Acute Qualifiers: Osteomyelitis type: unspecified type Osteomyelitis location: foot Laterality: right Qualified Code(s): M86.9 - Osteomyelitis, unspecified Category: Medical Code(s): M86.9 - Osteomyelitis, unspecified (3) Lactic acid acidosis Status: Acute Category: Medical Code(s): E87.2 - Acidosis (4
[2022-01-16 09:03] LABS: Vancomycin,Trough 10.9 ug/mL (5.0-10.0)
--- NOTE | 2022-01-16 09:15 | HMH.ORTHPN ---
Subjective Date: 01/16/22 Time: 08:30 Principal diagnosis: Right foot gangrene infection Interval history: Patient resting comfortably at the bedside. No new complaints. Some pain to the right foot. PN: Obj Ex Vital signs: Temp Pulse Resp BP Pulse Ox 97.3 F L 91 H 18 147/75 H 93 L 01/16/22 03:27 01/16/22 03:27 01/16/22 03:27 01/16/22 03:27 01/16/22 03:27 - Constitutional no acute distress - Routine HEENT Exam Head: Present: normocephalic - Routine Abdominal Exam Present: soft - Routine Extremities Exam Present: edema, amputation (right midfoot). Absent: extremity cold to touch - Detailed Lower Extremity Exam Top foot image: 1 - R midfoot amp with Integra bilayer wound graft, sutures, and erich intact. DM drain intact. Skin erich and sutures intact to plantar foot flap and some I&D sites. Minimal lilly-incisional maceration. No purulence expressed. No gangrenous changes to right amp flap. Pain and edema to RLE has improved. Some RLE edema noted. - Routine Skin Exam Present: erythema (right foot-has improved), wounds. Absent: gangrene - Routine Neurological Exam Present: alert - Routine Psychiatric Exam Present: normal affect Progress Note: A&P (1) Gangrene of toe of right foot Status: Acute (2) Osteomyelitis Status: Acute (3) Lactic acid acidosis Status: Acute (4) Sepsis Status: Acute (5) New onset type 2 diabetes mellitus Status: Acute (6) Tobacco use disorder Status: Acute (7) ETOH abuse Status: Acute (8) Abscess of right foot Status: Acute (9) Hypertension Status: Acute (10) Peripheral arterial disease with history of revascularization Status: Acute (11) Contrast dye induced nephropathy Status: Acute Assessment and Plan for All Diagnoses:: Microbiology 01/15/22 15:48 Ankle,Right Gram Stain - Final 01/09/22 16:00 Foot,Right - Wound Gram Stain - Final 01/09/22 16:00 Foot,Right - Wound Surgical Biopsy Culture - Final Streptococcus anginosus 01/09/22 16:00 Foot,Right - Right Bone Culture - Final NO GROWTH AFTER 5 DAYS 01/09/22 16:00 Ankle,Right Gram Stain - Final 01/09/22 16:00 Ankle,Right Wound Culture - Final Streptococcus anginosus 01/08/22 12:19 Foot,Right - Right Second Gram Stain - Final 01/08/22 12:19 Foot,Right - Right Second Wound Culture - Final Klebsiella pneumoniae Streptococcus anginosus 01/08/22 12:17 Foot,Right - Right Second Bone Culture - Final Enterococcus faecalis/faecium Proteus vulgaris/penneri Enterobacter cloacae 01/08/22 12:10 Ankle,Right Gram Stain - Final 01/08/22 12:10 Ankle,Right Abscess Culture - Final Streptococcus anginosus Laboratory Tests 01/10/22 01/16/22 01/16/22 13:49 05:55 05:55 WBC 9.0 D ESR 112 H Activated Clotting Time 208 H* Creatinine Estimated GFR Glucose C-Reactive Protein 67.6 H D 01/16/22 05:55 WBC ESR Activated Clotting Time Creatinine 3.90 H Estimated GFR 16 L* Glucose 129 H C-Reactive Protein Surgery, 01/15/22: s/p procedure performed: 1. Right ankle incision and drainage 2. Right foot wide deep irrigation and debridement 3. Extensive soft tissue rearrangement/advancement 4. Application of antibiotic beads 5. Application of DM drain 6. Secondary closure of surgical wound with application of Integra Bilayer Wound Graft 01/16/22: POD#1 -Dressing changed by Podiatry today. Wounds and skin looks much improved. -Adaptic applied over the graft sites. Betadine DSD applied. -Patient is high risk for further debridement, amputation. Discussed he is st
[2022-01-16 11:13] LABS: POC Glucose,Bedside 114 (70-110)
[2022-01-16 11:14] LABS: POC Glucose,Bedside 135 (70-110)
[2022-01-16 12:00] VITALS: BP 160/90; PULSE 90; RESP 16; TEMP 36.8; O2SAT 97
--- NOTE | 2022-01-16 12:49 | DIET.NUTRFU ---
Patient shows a weight gains of 12#, noted edema to right leg post sx. Patient has had multiple procedures down on rt leg d/t skin breakdown and poor circulation. This RD has already reviewed and provided handouts on diabetic diet and high protein to use once discharged. Meal intake has shown some improvement, now at 50% consistently. Patient drinks milk with most meals providing protein and eggs in morning are good protein too. Will also add glucerna in for additional protein. Labs reviewed. Will continue to monitor meal intake
--- NOTE | 2022-01-16 14:49 | PC.NURSE ---
rounded on patient. no concerns or questions noted. patient is resting in bed. assisted with getting ice and and gatorade poured over. encouraged to ring out with any needs or concerns.
--- NOTE | 2022-01-16 15:45 | PC.NURSE ---
PT IS RESTING IN BED. ALERT AND ORIENTED X4. MEDICATED PER MAR FOR DISCOMFORT. PT HAS BEEN USING WALKER TO AMBULATE TO THE BATHROOM. DRESSING TO RT FOOT CHANGED PER PODIATRY. DM DRAIN NOTED. LUNG SOUNDS CLEAR. ABDOMEN SOFT/NON TENDER WITH ACTIVE BOWEL SOUNDS. EATING AND DRINKING FAIR. WILL CONTINUE TO MONITOR.
[2022-01-16 16:00] VITALS: BP 160/89; PULSE 97; RESP 17; TEMP 36.8; O2SAT 96
--- NOTE | 2022-01-16 16:18 | HMH.PHACONS ---
- Pharmacy Consult Date: 01/16/22 Time: 16:18 Referring provider: DR. VARELA Reason for Consult:: VANCOMYCIN DOSING Allergies and ADEs:: Allergies Allergy/AdvReac Type Severity Reaction Status Date / Time Penicillins Allergy Unknown Unknown Verified 01/07/22 09:54 allergy reaction Home Medications:: Home Medications Medication Instructions Recorded Confirmed Type No Known Home Medications 01/07/22 01/07/22 History Height: 1.93 m Weight: 106.849 kg Laboratory Results:: Laboratory Results - last 24 hr 01/15/22 16:59: POC Glucose 106 01/16/22 05:50: Vancomycin Trough 10.9 H 01/16/22 05:55: C-Reactive Protein 67.6 H D 01/16/22 05:55: WBC 9.0 D, RBC 3.37 L, Hgb 10.6 L, Hct 33.6 L, MCV 99.5 H, MCH 31.5 H, MCHC 31.6 L, RDW 13.5, Plt Count 379, MPV 9.1, Neut % (Auto) 85.5 H, Lymph % (Auto) 7.5 L, Cameron % (Auto) 5.4, Eos % (Auto) 1.0, Baso % (Auto) 0.7, Neut # (Auto) 7.7, Lymph # (Auto) 0.7, Cameron # (Auto) 0.5, Eos # (Auto) 0.1, Baso # (Auto) 0.1, Total Counted 100, Neutrophils % (Manual) 86 H, Lymphocytes % (Manual) 9 L, Monocytes % (Manual) 5, Platelet Estimate Normal, RBC Morphology Normal, ESR 112 H 01/16/22 05:55: Sodium 138, Potassium 4.2, Chloride 116 H, Carbon Dioxide 16 L, Anion Gap 10.2, BUN 40 H, Creatinine 3.90 H, Estimated Creat Clear 29, Estimated GFR 16 L*, Est GFR ( Amer) 19 L*, Glucose 129 H, Calcium 8.0 L, Total Bilirubin 0.6, AST 45, ALT 33, Alkaline Phosphatase 194 H, Total Protein 5.6 L, Albumin 2.5 L, Globulin 3.1, Albumin/Globulin Ratio 0.8 L 01/16/22 05:56: POC Glucose 114 H 01/16/22 10:46: POC Glucose 135 H Medical History: Reports:: Hypertension Denies:: Anxiety, Atherosclerotic Heart Disease, Diabetes Mellitus Type 2, Lung Disease Assessment and Plan (1) Gangrene of toe of right foot Status: Acute Category: Medical Code(s): I96 - Gangrene, not elsewhere classified (2) Osteomyelitis Status: Acute Qualifiers: Osteomyelitis type: unspecified type Osteomyelitis location: foot Laterality: right Qualified Code(s): M86.9 - Osteomyelitis, unspecified Category: Medical Code(s): M86.9 - Osteomyelitis, unspecified (3) Lactic acid acidosis Status: Acute Category: Medical Code(s): E87.2 - Acidosis (4) Sepsis Status: Acute Qualifiers: Sepsis type: sepsis due to unspecified organism Sepsis acute organ dysfunction status: without acute organ dysfunction Qualified Code(s): A41.9 - Sepsis, unspecified organism Category: Medical Code(s): A41.9 - Sepsis, unspecified organism (5) New onset type 2 diabetes mellitus Status: Acute Category: Medical Code(s): E11.9 - Type 2 diabetes mellitus without complications (6) Tobacco use disorder Status: Acute Category: Medical Code(s): F17.200 - Nicotine dependence, unspecified, uncomplicated (7) ETOH abuse Status: Acute Category: Social Hx Code(s): F10.10 - Alcohol abuse, uncomplicated (8) Abscess of right foot Status: Acute Category: Medical Code(s): L02.611 - Cutaneous abscess of right foot (9) Hypertension Status: Acute Category: Medical Code(s): I10 - Essential (primary) hypertension (10) Peripheral arterial disease with history of revascularization Status: Acute Category: Medical Code(s): I73.9 - Peripheral vascular disease, unspecified; Z98.890 - Other specified postprocedural states (11) Contrast dye induced nephropathy Status: Acute Category: Medical Code(s): N14.1 - Nephropathy induced by other drugs, medicaments and biological substances; T50.8X5A - Adverse effect of diagnostic agents, initial encounter - Assessment and plan all Dx Assessment and Plan for all problems:: PATIENT'S LAST DOSE OF VANCOMYCIN WAS ON 01/10/22 AT 0948. VANCOMYCIN LEVEL WAS: 01/10/22-32.4 MCG/ML 01/12/22-22.1 MCG/ML 01/13/22 18.3 MCG/ML 01/14/22 15.5 MCG/ML 01/15/22 13.0 MCG/ML 01/16/22 10.9 MCG/ML RECOMMENDED HOLDING DOSE TODAY, THEN RESTARTING VANC
[2022-01-16 17:39] LABS: POC Glucose,Bedside 123 (70-110)
[2022-01-16 17:39] LABS: POC Glucose,Bedside 104 (70-110)
[2022-01-16 20:00] VITALS: BP 184/79; PULSE 94; RESP 17; TEMP 36.7; O2SAT 93
[2022-01-16 21:36] LABS: POC Glucose,Bedside 103 (70-110)
[2022-01-17] VITALS: BP 198/102; PULSE 96; RESP 17; TEMP 36.9; O2SAT 97
[2022-01-17 04:00] VITALS: BP 184/86; PULSE 99; RESP 17; TEMP 36.9; O2SAT 97
[2022-01-17 05:00] VITALS: BMI 28.7
--- NOTE | 2022-01-17 05:11 | PC.NURSE ---
Pt has rested very well this shift. C/o significant pain in the right leg/ankle/foot at beginning of shift, was medicated per sep with PO pain medication, stated he got some mild relief but not enough to rest. Pt was later medicated with Morphine per sep and pt states that did the trick, this is the best I've rested since I've been here . Pt has been ambulating to the bathroom this shift using his walker and a standby assist, tolerating well. LS remain cta, no c/o chest pain or soa. Pt BP has been elevated this shift, did come down after morphine administration, and pain control. PICC line remains patent, infusing without difficulty. Dressing remains C/D/I, no reinforcement needed this shift. No acute distress noted. Will continue to monitor for any further changes.
[2022-01-17 06:31] LABS: POC Glucose,Bedside 102 (70-110)
[2022-01-17 08:00] VITALS: BP 218/98; PULSE 102; RESP 18; TEMP 36.4; O2SAT 95
[2022-01-17 08:50] LABS: Anion Gap 13.1 mEq/L (5-15); Blood Urea Nitrogen 37 mg/dl (9-20); Calcium 7.9 mg/dl (8.4-10.2); Carbon Dioxide 15 mmol/L (22.0-30.0); Chloride 114 mmol/L (98-107); Creatinine Clearance Estimated 29 mL/min (50-200); Estimated Glomerular Filt Rate 16 ml/min (>60); GFR (African American) 19 ML/MIN (>60); Glucose 135 mg/dl (74-100); Potassium 4.1 mmoL/L (3.5-5.1); Sodium 138 mmol/L (136-145)
--- NOTE | 2022-01-17 09:02 | P.PN_ITS ---
[facility] Anesthesia Record Part II Discharge Time: 17:22 Destination: Inpatient PACU nurse assessment reviewed?: Yes Patient Condition:: Good Anesthesia Complications:: None Swallowing reflex intact?: Yes Cyanosis?: No Blood Pressure: 173/97 Pulse Rate: 93 Temperature: 97.7 F Mental Status: Alert & Oriented Pain level:: 0 Nausea and/or vomitting:: None Intake, IV Amount: 0
[2022-01-17 09:04] VITALS: BP 173/97; PULSE 93; TEMP 36.5
--- NOTE | 2022-01-17 09:14 | HMH.ACPN2 ---
<Santa Johnson - Last Filed: 01/17/22 09:14> Internal Medicine - PN: Subj *Date: 01/17/22 *Time: 09:14 Interval history: Patient states his pain is controlled with pain medication. He did not rest well last night. He does not feel like eating. Exam Vital signs and Labs for Last 24 Hours: Temp Pulse Resp BP Pulse Ox 97.7 F 93 H 17 173/97 H 97 01/17/22 09:04 01/17/22 09:04 01/17/22 04:00 01/17/22 09:04 01/17/22 04:00 Laboratory Results - last 24 hr 01/15/22 20:45: POC Glucose 123 H 01/16/22 05:56: POC Glucose 114 H 01/16/22 10:46: POC Glucose 135 H 01/16/22 16:11: POC Glucose 104 01/16/22 20:42: POC Glucose 103 01/17/22 06:18: POC Glucose 102 01/17/22 08:35: Sodium 138, Potassium 4.1, Chloride 114 H, Carbon Dioxide 15 L, Anion Gap 13.1, BUN 37 H, Creatinine 3.80 H, Estimated Creat Clear 29, Estimated GFR 16 L*, Est GFR ( Amer) 19 L*, Glucose 135 H, Calcium 7.9 L I & O for Last 24 hours: Intake & Output 01/14/22 01/15/22 01/16/22 01/17/22 11:59 11:59 11:59 11:59 Intake Total 2800 / 2800 240 / 240 6984 / 6984 3805 / 3805 Output Total 1615 / 1615 1530 / 1530 980 / 980 1310 / 1310 Balance 1185 / 1185 -1290 / -1290 6004 / 6004 2495 / 2495 Weight 237 lb 14.4 oz 235 lb 2 oz 235 lb 9 oz 235 lb 8.987 oz Microbiology Reports for the Last 24 Hours: Microbiology 01/15/22 15:48 Foot,Right - Other Surgical Biopsy Culture - Preliminary 01/15/22 15:48 Ankle,Right Gram Stain - Final 01/15/22 15:48 Ankle,Right Wound Culture - Preliminary NO GROWTH AFTER 24 HOURS - Constitutional no acute distress - *Routine Respiratory Exam Present: CTA bilaterally - *Routine Cardiovascular Exam Present: tachycardia - *Routine Abdominal Exam Present: soft, normoactive bowel sounds. Absent: tenderness - *Routine Extremities Exam Absent: cyanosis, clubbing, edema - *Routine Skin Exam Present: warm. Absent: rash Comments: Dressing in place on right foot with drain - *Routine Neurological Exam Present: alert, oriented X3 Assessment and Plan (1) Gangrene of toe of right foot Status: Acute Category: Medical Code(s): I96 - Gangrene, not elsewhere classified (2) Osteomyelitis Status: Acute Qualifiers: Osteomyelitis type: unspecified type Osteomyelitis location: foot Laterality: right Qualified Code(s): M86.9 - Osteomyelitis, unspecified Category: Medical Code(s): M86.9 - Osteomyelitis, unspecified (3) Lactic acid acidosis Status: Acute Category: Medical Code(s): E87.2 - Acidosis (4) Sepsis Status: Acute Qualifiers: Sepsis type: sepsis due to unspecified organism Sepsis acute organ dysfunction status: without acute organ dysfunction Qualified Code(s): A41.9 - Sepsis, unspecified organism Category: Medical Code(s): A41.9 - Sepsis, unspecified organism (5) New onset type 2 diabetes mellitus Status: Acute Category: Medical Code(s): E11.9 - Type 2 diabetes mellitus without complications (6) Tobacco use disorder Status: Acute Category: Medical Code(s): F17.200 - Nicotine dependence, unspecified, uncomplicated (7) ETOH abuse Status: Acute Category: Social Hx Code(s): F10.10 - Alcohol abuse, uncomplicated (8) Abscess of right foot Status: Acute Category: Medical Code(s): L02.611 - Cutaneous abscess of right foot (9) Hypertension Status: Acute Category: Medical Code(s): I10 - Essential (primary) hypertension (10) Peripheral arterial disease with history of revascularization Status: Acute Category: Medical Code(s): I73.9 - Peripheral vascular disease, unspecified; Z98.890 - Other specified postprocedural states (11) Contrast dye induced nephropathy Status: Acute Category: Medical Code(s): N14.1 - Nephropathy induced by other drugs, medicaments and biological substances; T50.8X5A - Adverse effect of diagnostic agents, initial encounter - Assessment and plan
--- NOTE | 2022-01-17 09:52 | DIET.NUTRFU ---
RD saw patient during rounds and he seems non motivated when it comes to meals. Intake for breakfast was poor, yesterday when menu was provided he was not interested in filling it out. He said just order sandwich and chips. RD encouraged protein for healing purposes. All patient wanted was a rice krispy treat, provided and asked about supplements he said he would be willing to try one. Ordered glucerna for lunch and dinner to provide additional calories and protein. Renal albs continue to be elevated BUN 37H and Cr 3.8H. Will continue to monitor po intake
--- NOTE | 2022-01-17 12:09 | HMH.DCSUM ---
General - General Admission date:: 01/07/22 <Isac Lea - 01/17/22 12:38> 01/07/22 <CaseySanta mazariegos - 01/17/22 12:35> Discharge date: 01/17/22 <Santa Johnson - 01/17/22 12:35> HPI HPI: Mr. Hernandez is a 66-year-old white male who is generally been healthy does not have a primary care physician. His only reported history is that of gout. He presented to the ER today with complaints of right foot pain. States he has been having pain off and on for a long time but 10 days ago he injured his right second toe and since then has developed increased pain and swelling and redness of the toe and foot. On initial assessment in the ER, he had obvious gangrene of the right second toe and x-ray showed osteomyelitis with erosion of the distal phalanx. His white blood cell count is elevated 25,000 and lactic acid was greater than 5. The other significant finding on work-up is that of blood sugar elevated at 289. He has no history of diabetes. He is being admitted at this time for IV antibiotics, sliding scale insulin and podiatry consultation for amputation. As noted, he reports generally good health although does not follow with a primary care physician. He was not aware of being diabetic. He gives a history of having been treated for gout. He smokes a half a pack cigarettes per day. He admits to drinking beer daily. <CaseySanta mazariegos - 01/17/22 12:35> Hospital Course Hospital Course: The patient was admitted and started on IV antibiotics and podiatry was consulted for amputation of his second right toe. He was placed on sliding scale insulin for control of his blood sugar and arterial Doppler studies were ordered. Radiographs of the right foot were reviewed by Dr. Gonzales and discussed with the patient. This showed erosion consistent with osteomyelitis of the right second toe and she planned for surgery. The patient was seen in consultation by cardiology who felt he was an acceptable risk to proceed with surgery. His echo showed a normal LVEF with no significant valvular disease. Of note he did have a new onset of diabetes with a hemoglobin A1c of 9.4. He was also started on potassium supplementation for hypokalemia. He was taken to the OR on 01/08/2022 for right foot incision and drainage, right ankle abscess incision and drainage, right second toe amputation, right foot wide deep irrigation and debridement, and application of antibiotic beads. He had a postop CT of the foot showing the antibiotic beads in place, multiple soft tissue defects, and widespread subcutaneous edema and cellulitis. There was no definitive abscess. Dr. Gonzales felt the patient would need further amputation and incision and drainage for limb salvage purposes. Her plan was to place a PICC and continue IV antibiotics and dressing changes at [facility]. She performed a right midfoot amputation with further incision and drainage and application of more antibiotic beads on 01/09/2022. X-rays were taken postop and there showed probable mild osteolysis of the midfoot bone along the amputation margin and osteomyelitis was not excluded. A drain was placed and the foot was dusky post surgery. Cardiology was consulted for runoff evaluation for PAD secondary to the patient's diabetes and smoking history. He was seen in consultation by cardiology and taken for right lower extremity angiogram which showed severe right SFA disease with successful percutaneous revascularization, critical disease in the PT trunk and posterior tibialis artery with successful revascularization using a drug-coated balloon. The patient was started on Xarelto 2.5 mg twice daily plus a baby aspirin daily. His white blood cell count improved but his creatinine began climbing after receiving the contrast. His IV fluids were increased and his lisinopril was discontinued. He had his PICC line placed for continued IV antibiotics. Cardiology felt he should continue aspirin, Plavi
--- NOTE | 2022-01-17 13:34 | PC.NURSE ---
Rounded on pt and assisted to bathroom. Pt being discharged later today, no needs voiced at this time.
--- NOTE | 2022-01-17 13:37 | PC.NURSE ---
REPORT CALLED TO [facility]. DRESSING HAS BEEN CHANGED THIS SHIFT. DRAIN FELL OUT DURING DRESSING CHANGE( NOTIFIED AND STATED TO STAFF TO REINFORCE DRESSING). PT HAS BEEN ALERT AND ORIENTED X4. PICC NOTED TO [facility]. [facility] WAS INSTRUCTED TO DO DAILY DRESSING CHANGES AND PT WILL NEED TO FOLLOW UP WITH PODIATRY 01/24. PT WILL CONTINUE PO AND IV ANTIBIOTICS AND WILL NEED FOLLOW UP LAB WORK. [facility] STATED THEY WOULD CALL BACK WHEN PT'S BED WAS READY.
[2022-01-17 13:53] LABS: Coronavirus 19, PCR Not Detected (NotDetected); Influenza A, PCR Not Detected (NotDetected); Influenza B, PCR Not Detected (NotDetected)
[2022-01-17 14:55] LABS: POC Glucose,Bedside 117 (70-110)
[2022-01-17 16:00] VITALS: PULSE 52
--- NOTE | 2022-01-17 18:14 | PC.NURSE ---
Spoke with Rebecca dennis, the room is open and they are ready for pt. Called [facility] they will be on their way.
--- NOTE | 2022-01-18 14:05 | CARE MANAGER ---
Contacted [facility]. Patient is doing well. Denies any questions or concerns at this time. AMBAR Ruby
== END 2022-01-17 19:03 | DRG 239 ==
LOC: ER 10:04 → 2ND 10:50
PROVIDERS: Internal Medicine; Podiatrist; Admitting Provider Family Medicine; Emergency Provider Emergency Medicine; Visit Provider Family Medicine
PROC: 0J9Q0ZZ Drainage of Right Foot Subcutaneous Tissue and Fascia, Open Approach (ICD-10-PCS; principal; 2022-01-08 11:30)
PROC: 0Y6M0Z9 Detachment at Right Foot, Partial 1st Ray, Open Approach (ICD-10-PCS; principal; 2022-01-09 13:45)
PROC: 047K3DZ Dilation of Right Femoral Artery with Intraluminal Device, Percutaneous Approach (ICD-10-PCS; principal; 2022-01-10 11:15)
DX: E11.52 Type 2 diabetes mellitus with diabetic peripheral angiopathy with gangrene (principal); A48.0 Gas gangrene; M86.9 Osteomyelitis, unspecified; L02.611 Cutaneous abscess of right foot; E87.1 Hypo-osmolality and hyponatremia; L03.115 Cellulitis of right lower limb; E11.69 Type 2 diabetes mellitus with other specified complication; F17.210 Nicotine dependence, cigarettes, uncomplicated; F10.10 Alcohol abuse, uncomplicated; M10.9 Gout, unspecified; Z20.822 Contact with and (suspected) exposure to COVID-19; Z86.73 Personal history of transient ischemic attack (TIA), and cerebral infarction without residual deficits; I10 Essential (primary) hypertension; E87.6 Hypokalemia; B95.5 Unspecified streptococcus as the cause of diseases classified elsewhere; B96.5 Pseudomonas (aeruginosa) (mallei) (pseudomallei) as the cause of diseases classified elsewhere; I70.211 Atherosclerosis of native arteries of extremities with intermittent claudication, right leg; I77.1 Stricture of artery; Z79.899 Other long term (current) drug therapy
CPT/HCPCS: 10060; 28820; 28302; 28008 ×3; 28805 ×2; 11043; 36410; 36415; 36569; 37226; 37228; 37232; 71045; 73610; 73620; 73630; 73702; 76000; 80048; 80053; 80202; 82962; 83036; 83605; 85007; 85025; 85347; 85610; 85651; 85730; 86140; 87040; 87070; 87075; 87077; 87186; 87205; 88304; 88305; 88307; 88311; 93005; 93306; 93923; 97162; 99152; 99153; 99291; C1713; C1725; C1751; C1760; C1766; C1769; C1876; C1894; C9803; J1644; J2405; J3370; Q4104; Q9966; Q9967; U0003; U0005

== ENCOUNTER → 2022-01-22 17:09 | Outpatient (CLI) | payer MEDICARE, SELFPAY | PROVIDERS: PCP Family Medicine; Visit Provider Podiatrist | DX: Z98.890 Other specified postprocedural states (principal); M86.671 Other chronic osteomyelitis, right ankle and foot | CPT/HCPCS: 87070; 87077; 87205 ==

== ENCOUNTER 2022-01-25 14:11 | Emergency (ER) | payer MEDICARE, SELFPAY ==
[2022-01-25 14:11] VITALS: BP 151/77; PULSE 84; RESP 16; TEMP 36.7; O2SAT 100; BMI 28.0
[2022-01-25 14:30] VITALS: BP 151/73; PULSE 78; RESP 16; O2SAT 100
--- NOTE | 2022-01-25 14:45 | PC.NURSE ---
Rounded on patient asked if there was anything I could get him. He asked if there was any medicine we could get him for his foot. I told him I was unsure but that I would ask his nurse. Call light within reach.
--- NOTE | 2022-01-25 14:46 | PC.NURSE ---
Valdo notified of patient requesting pain medication. She stated that there was nothing ordered at this time and that the doctor would have to see the patient first. Will inform patient.
[2022-01-25 14:51] LABS: Basophils # 0.1 K/mm3 (0-0.2); Eosinophils # 0.1 K/mm3 (0.0-0.4); Eosinophils % 2.3 % (0.1-12.0); Hematocrit 32.5 % (42.0-52.0); Hemoglobin 10.8 g/dL (14.1-18.0); Lymphocytes # 0.7 K/mm3 (0.7-4.5); Lymphocytes % 11.2 % (10-50); Mean Corpuscular HGB Conc 33.1 g/dL (31.8-35.4); Mean Corpuscular Volume 90.7 fl (80-94); Mean Platelet Volume 8.6 fl (7.4-10.4); Monocytes # 0.5 K/mm3 (0.1-1.0); Monocytes % 7.7 % (1.7-9.3); Neutrophils # 4.9 K/mm3 (1.8-7.8); Neutrophils % 77.9 % (37.0-80.0); Platelet Count 234 K/mm3 (142-424); Red Blood Count 3.58 M/mm3 (4.60-6.20); Red Cell Distribution Width 12.9 % (11.5-17.5); White Blood Count 6.3 K/mm3 (4.8-10.8)
[2022-01-25 14:52] LABS: Chloride 107 mmol/L (98-107); Sodium 137 mmol/L (136-145)
[2022-01-25 14:53] LABS: Potassium 3.5 mmoL/L (3.5-5.1)
[2022-01-25 14:55] LABS: Alanine Aminotransferase 15 U/L (12-78); Alkaline Phosphatase 114 U/L (38-126); Anion Gap 9.5 mEq/L (5-15); Aspartate Amino Transferase 20 U/L (17-59); Bilirubin,Total 0.4 mg/dl (0.2-1.3); Blood Urea Nitrogen 43 mg/dl (9-20); Carbon Dioxide 24 mmol/L (22.0-30.0); Creatinine Clearance Estimated 29 mL/min (50-200); Estimated Glomerular Filt Rate 17 ml/min (>60); GFR (African American) 20 ML/MIN (>60); Glucose 131 mg/dl (74-100)
[2022-01-25 14:56] LABS: Calcium 8.5 mg/dl (8.4-10.2)
--- NOTE | 2022-01-25 14:56 | PC.NURSE ---
Patient's family member came out to the hallway asking if her dad could use the restroom and asked if I could bring him a wheelchair. Brought patient a wheelchair and helped him to the bathroom
[2022-01-25 15:01] VITALS: BP 155/81; PULSE 68; RESP 16; O2SAT 100
--- NOTE | 2022-01-25 15:10 | HMH.EDGENADL ---
ED Disposition Clinical Impression: Abnormal laboratory test result Disposition: Home, Self-Care Condition on Discharge: Good Referrals: Isac Lea MD [Primary Care Provider] - - Critical Care Critical Care Time: No Attestation: On 01/25/22, the high probability of a clinically significant, sudden or life threatening deterioration of the following system(s) required my full and direct attention, intervention and personal management. The time I documented below is in addition to time spent performing reported procedures but includes the following listed in this critical care notation. Medical Decision Making - Medical Records Medical records reviewed: Yes: I reviewed the patient's medical records. MR Comment: Reviewed discharge summary from recent admission 01/07/2022. Reviewed previous laboratory values. The patient has contrast-induced nephropathy. Renal indices stable. Hemoglobin is stable. - Darshan Inquiry Pt receiving controlled substance: Yes Darshan was queried for this patient: No Risks and benefits of using a controlled substance: were not discussed with pt by me Comment: Requests pain pill prior to ambulance ride. Vital Signs: 01/25/22 14:11 01/25/22 14:30 01/25/22 15:01 Temperature 98.1 F Temperature Source Oral Pulse Rate 78 68 Pulse Rate [Right Radial] 84 Respiratory Rate 16 16 16 Blood Pressure 151/73 H 155/81 H Blood Pressure [Right Arm] 151/77 H Blood Pressure Mean 104 105 Blood Pressure Mean [Right Arm] 101 Blood Pressure Source [Right Arm] Automatic Cuff Blood Pressure Position [Right Arm] Sitting 02 Sat by Pulse Oximetry 100 100 100 Oxygen Delivery Method Room Air - Lab Data Lab Results 01/25/22 14:37: WBC 6.3, RBC 3.58 L, Hgb 10.8 L, Hct 32.5 L, MCV 90.7, MCH 30.0, MCHC 33.1, RDW 12.9, Plt Count 234, MPV 8.6, Neut % (Auto) 77.9, Lymph % (Auto) 11.2, Davis % (Auto) 7.7, Eos % (Auto) 2.3, Baso % (Auto) 1.0, Neut # (Auto) 4.9, Lymph # (Auto) 0.7, Davis # (Auto) 0.5, Eos # (Auto) 0.1, Baso # (Auto) 0.1 01/25/22 14:37: Sodium 137, Potassium 3.5, Chloride 107, Carbon Dioxide 24, Anion Gap 9.5, BUN 43 H, Creatinine 3.70 H, Estimated Creat Clear 29, Estimated GFR 17 L*, Est GFR ( Amer) 20 L, Glucose 131 H, Calcium 8.5, Total Bilirubin 0.4, AST 20, ALT 15, Alkaline Phosphatase 114 Result diagrams: 01/25/22 14:37 01/25/22 14:37 Orders (Tests/Meds): ED MEDICATIONS Generic Name Dose Route Start Last Admin Trade Name Freq PRN Reason Stop Dose Admin Sodium Chloride 10 ml 01/25/22 14:40 Sodium Chloride 0.9% 10ml Flush Syringe IV 02/24/22 14:39 NEEDED PRN Maintain IV Site ORDERS Category Date Time Status CMP [Comprehensive Metabolic Panel] Stat Lab 01/25/22 14:37 Results Medical Decision Narrative: Apparent laboratory error, hemoglobin is stable per our laboratory results. General Adult HPI - General Chief complaint: Recheck/Abnormal Lab/Rx Stated complaint: abnormal labs Time Seen by Provider: 01/25/22 15:10 Mode of Arrival: EMS Limitations: No Limitations Description of Symptoms (Recalled from ER Triage Doc. by RN): Pt to ED following labs being drawn at nursing facility with a reported Hgb result of 6.7. Pt denies any symptoms other than fatigue and states but I don't get to rest well since being in there . Pt currently undergoing antibiotic treatment at facility r/t rt foot amputation. - History of Present Illness HPI narrative: Patient arrives by ambulance from [facility]. Reportedly had blood drawn last night which showed a hemoglobin of 6.7. The patient says he feels fine. No problems with bleeding: No epistaxis, hemoptysis, hematemesis, melena, hematochezia, hematuria. Has no current complaints. States that he has pain in his right foot from a recent foot amputation, for which he is admitted to the [facility], otherwise feels good. - Related Data Home Medications Medication
[2022-01-25 15:12] LABS: Albumin Level 3.1 g/dl (3.5-5.0); Albumin/Globulin Ratio 0.9 (1.1-1.8); Globulin 3.3 g/dL (1.3-3.2); Total Protein,Serum 6.4 g/dl (6.3-8.2)
[2022-01-25 15:30] VITALS: BP 165/78; PULSE 83; RESP 17; O2SAT 99
--- NOTE | 2022-01-25 15:40 | PC.NURSE ---
Called report to [facility] and advised them that pt would be returning to facility via family vehicle.
[2022-01-25 15:45] VITALS: BP 165/74; PULSE 78; RESP 16; TEMP 36.8; O2SAT 97
--- NOTE | 2022-01-25 15:50 | PC.NURSE ---
Helped patient out to family vehicle by wheelchair
== END 2022-01-25 15:45 | disposition home or self-care (01) ==
PROVIDERS: Emergency Provider Emergency Medicine; PCP Family Medicine
DX: R79.9 Abnormal finding of blood chemistry, unspecified (principal); D58.2 Other hemoglobinopathies; I10 Essential (primary) hypertension; R53.82 Chronic fatigue, unspecified; N14.1 Nephropathy induced by other drugs, medicaments and biological substances; Z79.02 Long term (current) use of antithrombotics/antiplatelets; Z79.82 Long term (current) use of aspirin; Z79.84 Long term (current) use of oral hypoglycemic drugs; Z79.899 Other long term (current) drug therapy; Z88.0 Allergy status to penicillin; Z79.1 Long term (current) use of non-steroidal anti-inflammatories (NSAID); Z87.891 Personal history of nicotine dependence
CPT/HCPCS: 80053; 85025; 99282

== ENCOUNTER 2022-02-08 18:57 | Inpatient (IN) | payer MEDICARE, SELFPAY ==
[2022-02-08] VITALS (14 sets, daily range): BP systolic 128–157; BP diastolic 65–76; PULSE 72–80; RESP 16–18; TEMP 36.7–37.1; O2SAT 97–100; BMI 28.0; BMI 24.0
--- NOTE | 2022-02-08 18:55 | HMH.EDGENADL ---
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 The time I documented below is in addition to time spent performing reported procedures but includes the following listed in this critical care notation. Medical Decision Making - Medical Records Medical records reviewed: Yes: I reviewed the patient's medical records. - Darshan Inquiry Pt receiving controlled substance: No Vital Signs: 02/08/22 18:43 Temperature 98.1 F Temperature Source Oral Pulse Rate [Right Radial] 78 Respiratory Rate 16 Blood Pressure [Right Arm] 140/74 Blood Pressure Mean [Right Arm] 96 Blood Pressure Source [Right Arm] Automatic Cuff Blood Pressure Position [Right Arm] Sitting 02 Sat by Pulse Oximetry 99 Oxygen Delivery Method Room Air - Lab Data Lab Results 02/08/22 18:46: WBC 7.5, RBC 2.31 L, Hgb 6.9 L, Hct 21.1 L, MCV 91.2, MCH 29.8, MCHC 32.7, RDW 14.6, Plt Count 419, MPV 8.9, Neut % (Auto) 71.2, Lymph % (Auto) 19.6, [place] % (Auto) 6.5, Eos % (Auto) 2.0, Baso % (Auto) 0.6, Neut # (Auto) 5.3, Lymph # (Auto) 1.5, [place] # (Auto) 0.5, Eos # (Auto) 0.2, Baso # (Auto) 0.1 02/08/22 18:46: Sodium 140, Potassium 3.7, Chloride 105, Carbon Dioxide 26, Anion Gap 12.7, BUN 47 H, Creatinine 3.00 H, Estimated Creat Clear 36, Estimated GFR 21 L, Est GFR ( Amer) 26 L, Glucose 128 H, Calcium 9.3, Total Bilirubin < 0.1 L, AST 38, ALT 78, Alkaline Phosphatase 455 H, Total Protein 7.3, Albumin 3.5, Globulin 3.8 H, Albumin/Globulin Ratio 0.9 L 02/08/22 18:46: PT 12.7 H, INR 1.13 H, APTT 32.2 H 02/08/22 18:46: Iron 23 L, TIBC 300, Iron Saturation 7.36520 L, Ferritin 633 H 02/08/22 18:46: C-Reactive Protein 63.2 H 02/08/22 18:46: ESR > 140 H 02/08/22 19:22: SARS-CoV-2 (PCR) Detected A, Influenza A Untype (PCR) Not detected, Influenza Type B (PCR) Not detected 02/08/22 19:25: Stool Occult Blood Positive A 02/08/22 19:32: Blood Type O Positive, Crossmatch (AHG) See Detail Result diagrams: 02/08/22 18:46 02/08/22 18:46 Orders (Tests/Meds): ED MEDICATIONS Generic Name Dose Route Start Last Admin Trade Name Freq PRN Reason Stop Dose Admin Sodium Chloride 250 mls @ 25 mls/hr 02/08/22 19:15 Sod Chlor 0.9% 250ml Bag IV 02/09/22 19:14 .Q10H RONALD Cefepime HCl 2 gm/ Sodium 100 mls @ 200 mls/hr 02/08/22 20:15 02/08/22 20:23 Chloride IV 02/22/22 20:14 200 mls/hr Q8H RONALD Administration Vancomycin HCl 1,500 mg/ 250 mls @ 125 mls/hr 02/08/22 20:15 Sodium Chloride IV 02/22/22 20:14 Q12H RONALD Discontinued Medications Generic Name Dose Route Start Last Admin Trade Name Freq PRN Reason Stop Dose Admin Hydrocodone Bitart/Acetaminophen 1 tab 02/08/22 20:12 02/08/22 20:23 Hydrocodone/Apap 5/325 Mg Tablet PO 02/08/22 20:13 1 tab ONCE ONE Administration ORDERS Category Date Time Status Transfuse RBC's [Red Blood Cells] Stat [facility] 02/08/22 19:32 Results Type and Screen Stat [facility] 02/08/22 19:32 Results CRP [C-Reactive Protein] Stat Lab 02/08/22 18:46 Results Folate Stat Lab 02/08/22 18:46 Results Vitamin B12 Stat Lab 02/08/22 18:46 Results Medical Decision Narrative: In summary this is a 66-year-old male with history of chronic kidney disease, marilin
[2022-02-08 19:00] LABS: Basophils # 0.1 K/mm3 (0-0.2); Monocytes # 0.5 K/mm3 (0.1-1.0); Red Cell Distribution Width 14.6 % (11.5-17.5)
[2022-02-08 19:05] LABS: Basophils % 0.6 % (0.1-2.0); Eosinophils # 0.2 K/mm3 (0.0-0.4); Lymphocytes # 1.5 K/mm3 (0.7-4.5); Lymphocytes % 19.6 % (10-50); Mean Corpuscular HGB Conc 32.7 g/dL (31.8-35.4); Mean Corpuscular Hemoglobin 29.8 pg (27.0-31.2); Mean Corpuscular Volume 91.2 fl (80-94); Mean Platelet Volume 8.9 fl (7.4-10.4); Monocytes % 6.5 % (1.7-9.3); Neutrophils # 5.3 K/mm3 (1.8-7.8); Neutrophils % 71.2 % (37.0-80.0); Platelet Count 419 K/mm3 (142-424); Red Blood Count 2.31 M/mm3 (4.60-6.20); White Blood Count 7.5 K/mm3 (4.8-10.8)
[2022-02-08 19:06] LABS: Hematocrit 21.1 % (42.0-52.0)
[2022-02-08 19:07] LABS: Chloride 105 mmol/L (98-107); Hemoglobin 6.9 g/dL (14.1-18.0); Potassium 3.7 mmoL/L (3.5-5.1); Sodium 140 mmol/L (136-145)
[2022-02-08 19:10] LABS: Alanine Aminotransferase 78 U/L (12-78); Albumin Level 3.5 g/dl (3.5-5.0); Albumin/Globulin Ratio 0.9 (1.1-1.8); Alkaline Phosphatase 455 U/L (38-126); Anion Gap 12.7 mEq/L (5-15); Aspartate Amino Transferase 38 U/L (17-59); Calcium 9.3 mg/dl (8.4-10.2); Carbon Dioxide 26 mmol/L (22.0-30.0); Globulin 3.8 g/dL (1.3-3.2); Glucose 128 mg/dl (74-100); Total Protein,Serum 7.3 g/dl (6.3-8.2)
--- NOTE | 2022-02-08 19:10 | XR_ITS ---
PROCEDURE INFORMATION: Exam: XR Right Foot Exam date and time: 02/08/22 07:24 PM Age: 66 years old Clinical indication: Pain; Foot; Right; Prior surgery; Surgery date: 1-6 months; Additional info: Foot pain right TECHNIQUE: Imaging protocol: Radiologic exam of the Right foot. Views: 1 or 2 views. COMPARISON: CR XR FOOT RT MIN 3V 01/09/22 05:09 PM FINDINGS: Tubes, catheters and devices: Antibiotic beads removed since comparison. Bones/joints: Transmetatarsal amputation. Soft tissues: Skin grafts in place. IMPRESSION: Antibiotic beads removed since comparison.
--- NOTE | 2022-02-08 19:14 | PC.NURSE ---
RAD at BS
[2022-02-08 19:15] LABS: Blood Urea Nitrogen 47 mg/dl (9-20); Creatinine Clearance Estimated 36 mL/min (50-200); Estimated Glomerular Filt Rate 21 ml/min (>60); GFR (African American) 26 ML/MIN (>60)
[2022-02-08 19:16] LABS: Bilirubin,Total < 0.1 mg/dl (0.2-1.3)
[2022-02-08 19:17] LABS: Iron 23 ug/dL (49-181)
[2022-02-08 19:21] LABS: Activated Partial Thrombo Time 32.2 seconds (22.8-30.6); INR 1.13 (0.9-1.1); Prothrombin Time 12.7 seconds (10.1-12.5)
[2022-02-08 19:26] LABS: Total Iron Binding Capacity 300 ug/dL (261-462)
[2022-02-08 19:27] LABS: Influenza A, PCR Not Detected (NotDetected); Influenza B, PCR Not Detected (NotDetected)
--- NOTE | 2022-02-08 19:28 | PC.NURSE ---
Dr. Davis at bedside for hemoccult test, this RN assisted.
[2022-02-08 19:30] LABS: C-Reactive Protein 63.2 mg/L (0-4)
[2022-02-08 19:31] LABS: Occult Blood,Stool Positive (Negative)
--- NOTE | 2022-02-08 19:40 | PC.NURSE ---
House notified of pt admission and need for bed assignment
[2022-02-08 19:44] LABS: Erythrocyte Sedimentation Rate > 140 mm/hr (0-20)
--- NOTE | 2022-02-08 19:44 | PC.NURSE ---
PATIENT ADMITTED TO 213 OBSERVATION WITH DX OF BLOOD LOSS ANEMIA TO SERVICE OF DR. CHRISTINE TO [facility].
--- NOTE | 2022-02-08 19:50 | PC.NURSE ---
Dr. Aggarwal stated to Dr. Davis that pt is not followed by Dr. Lea and asked MD to call who is on for service, Dr. Louie.
[2022-02-08 19:52] LABS: Coronavirus 19, PCR Detected (NotDetected)
[2022-02-08 19:54] LABS: Ferritin 633 ng/ml (17.9-464)
--- NOTE | 2022-02-08 20:02 | PC.NURSE ---
Dr. Davis notified pt requesting pain medication.
--- NOTE | 2022-02-08 20:14 | PC.NURSE ---
Dr. Davis s/w Dr. Louie. She would like to page Dr. Gonzales
[2022-02-08 20:32] LABS: Folate 6.46 ng/mL; Vitamin B12 > 1000 pg/mL (239-931)
[2022-02-08 20:49] LABS: Lactic Acid 0.9 mmol/L (0.7-2.1)
[2022-02-08 20:52] LABS: Procalcitonin 0.053 ng/mL (0.0-2.0)
--- NOTE | 2022-02-08 20:53 | PC.NURSE ---
Called [facility] and s/w Armand regarding Vancomycin dose and orders. Per Christa at [facility], pt last dose was 02/07/22 @ 0800. Last Vanco trough was 01/21/[address] Schultz notified of this. Armand states to re-check Vanco trough in am.
--- NOTE | 2022-02-08 21:00 | PC.NURSE ---
Consent for blood transfusion completed.
--- NOTE | 2022-02-08 21:07 | PC.NURSE ---
Lab notified that 1st unit of blood is ready @[id number]
--- NOTE | 2022-02-08 21:24 | PC.NURSE ---
pt to the floor via wheel chair at 2124
[2022-02-08 22:01] LABS: POC Glucose,Bedside 131 (70-110)
--- NOTE | 2022-02-08 23:09 | PC.NURSE ---
Spoke with Kia from [facility] for vancomycin consult at this time.
[2022-02-09] VITALS (35 sets, daily range): BP systolic 105–157; BP diastolic 48–82; PULSE 66–79; RESP 16–20; TEMP 36.4–37.1; O2SAT 96–100
[2022-02-09 04:14] LABS: Hemoglobin 7.1 g/dL (14.1-18.0)
[2022-02-09 04:17] LABS: Hematocrit 21.9 % (42.0-52.0)
--- NOTE | 2022-02-09 06:21 | PC.NURSE ---
Pt a+ox4. Pt has not voiced any complaints to staff. Photo consent signed, pictures taken of right foot and documented, and foot dressed with betadine soaked gauze, kerlex, and luis bandage. Pt tolerated dsg change well. Pt has not had any BMs t/o shift. Call light within reach.
[2022-02-09 07:31] LABS: Basophils % 0.7 % (0.1-2.0); Eosinophils # 0.2 K/mm3 (0.0-0.4); Eosinophils % 2.3 % (0.1-12.0); Hematocrit 23.6 % (42.0-52.0); Hemoglobin 7.6 g/dL (14.1-18.0); Lymphocytes # 1.1 K/mm3 (0.7-4.5); Lymphocytes % 16.8 % (10-50); Mean Corpuscular HGB Conc 32.1 g/dL (31.8-35.4); Mean Corpuscular Hemoglobin 29.4 pg (27.0-31.2); Mean Corpuscular Volume 91.3 fl (80-94); Mean Platelet Volume 9.8 fl (7.4-10.4); Monocytes # 0.5 K/mm3 (0.1-1.0); Monocytes % 7.6 % (1.7-9.3); Neutrophils # 4.7 K/mm3 (1.8-7.8); Neutrophils % 72.5 % (37.0-80.0); Platelet Count 388 K/mm3 (142-424); Red Blood Count 2.58 M/mm3 (4.60-6.20); Red Cell Distribution Width 14.7 % (11.5-17.5); White Blood Count 6.4 K/mm3 (4.8-10.8)
[2022-02-09 07:37] LABS: Chloride 107 mmol/L (98-107); Potassium 3.9 mmoL/L (3.5-5.1); Sodium 140 mmol/L (136-145)
[2022-02-09 07:40] LABS: Blood Urea Nitrogen 44 mg/dl (9-20); Creatinine Clearance Estimated 35 mL/min (50-200); Estimated Glomerular Filt Rate 24 ml/min (>60); GFR (African American) 29 ML/MIN (>60)
[2022-02-09 07:41] LABS: Anion Gap 11.9 mEq/L (5-15); Calcium 9.1 mg/dl (8.4-10.2); Carbon Dioxide 25 mmol/L (22.0-30.0); Glucose 134 mg/dl (74-100)
[2022-02-09 08:02] LABS: Vancomycin,Random 32.8 ug/ml
--- NOTE | 2022-02-09 08:36 | PC.NURSE ---
Spoke with Dr. Thakur about consult for surgery
--- NOTE | 2022-02-09 08:49 | HMH.HP ---
*Admission Date: 02/09/22 *Chief complaint: Anemia *History of present illness: 66-year-old white male who is recently been a resident of the [facility] facility for rehabilitation after a forefoot amputation secondary to peripheral vascular disease and infection and a hospital stay here at [facility] in January of this year. Patient has been doing well at [facility] but yesterday noted that he was extremely weak and blood counts were done which revealed hemoglobin in the 6 g range. Transferred to the emergency department. On further history patient notes about a week ago he had a couple of days of dark stool that were very black. He attributed some diet change and also the fact that he has recently had COVID infection which was extremely mild from a respiratory standpoint but made him very weak and he thought may have changed his diet little bit. In the emergency department here he was found to have significant anemia, foot had some evidence of redness and infectious changes per the ER note, he was admitted for transfusion, further evaluation of his anemia and his foot situation. [facility] History I have reviewed the patient's past medical history: Yes Medical History: Reports:: Congestive Heart Failure, Diabetes Mellitus Type 2, Hypertension Denies:: Anxiety, Atherosclerotic Heart Disease, Diabetes Mellitus Type 1, Lung Disease, MRSA *Have you ever received a pneumonia vaccine?: No *Have you received a flu vaccine this season?: No Other Medical History: Reports: Other. Denies: Thyroid Disease Other Surgeries: Yes: No Previous Surgery Amputation: Yes - *Social History Last grade of school completed: High school graduate Smoking Status: Former smoker Tobacco Type: cigarettes Alcohol Intake: former Alcohol Intake Frequency:: 3 or more drinks per day Substance Use Type: denies use *Occupational Status:: retired Housing: longterm Household Members: none *Travel in the last 8 weeks: None - Psychiatric History Pschychiatric History:: Denies:: Anxiety Family Hx:: Cancer, Hyperlipidemia, Hypertension Review of Systems - Review of Systems Review of systems:: pertinent systems reviewed and negative unless documented below - *Neurologic Denies dizziness, Denies headache(s) Meds Home Medications Medication Instructions Recorded Confirmed Type Acetaminophen [Tylenol 500mg 1,000 mg PO Q6HP PRN tab 01/17/22 02/08/22 Rx tablet] Hydrocod/Acet 5/325 mg [[place] 1 tab PO Q4HP PRN #30 tab 01/17/22 02/08/22 Rx 5/325mg tablet] Amlodipine Besylate [Norvasc 5mg 5 mg PO DAILY 01/25/22 02/08/22 History tablet] Aspirin [Aspirin 81mg chewable 81 mg PO DAILY 01/25/22 02/08/22 History tab] Atorvastatin Calcium [Lipitor 40mg 80 mg PO HS 01/25/22 02/08/22 History Tablet*] Clopidogrel Bisulfate [Plavix 75mg 75 mg PO DAILY 01/25/22 02/08/22 History Tab] Rivaroxaban [Xarelto 2.5mg Tab*] 2.5 mg PO BIDWMEAL 01/25/22 02/08/22 History Sitagliptin Phosphate [Januvia 25 mg PO DAILYDM 01/25/22 02/08/22 History 50mg Tablet] bisoproloL fumarate [Zebeta 5mg 5 mg PO DAILY 01/25/22 02/08/22 History tablet] Ascorbate Calcium [Vitamin C] 500 mg PO DAILY 02/08/22 02/08/22 History Cholecalciferol (Vitamin D3) 2,000 unit PO DAILY 02/08/22 02/08/22 History [Vitamin D3 1,000 Unit Cap] Multivitamin [Multi-Vitamin Plain] 1 each PO DAILY 02/08/22 02/08/22 History Zinc Sulfate [Zinc Sulfate 220mg 220 mg PO DAILY 02/08/22 02/08/22 History capsule] Allergies Allergy/AdvReac Type Severity Reaction Status Date / Time Penicillins Allergy Unknown Unknown Verified 01/22/22 11:27 allergy reaction Exam Vital signs and Labs for Last 24 Hours: Temp Pulse Resp BP Pulse Ox 98.0 F 76 16 136/62 98 02/09/22 04:00 02/09/22 04:00 02/09/22 04:00 02/09/22 04:00 02/09/22 04:00 Laboratory Results - last 24 hr 02/08/22 18:46: WBC 7.5, RBC 2.31 L, Hgb 6.9 L, Hct 21
--- NOTE | 2022-02-09 09:07 | HMH.PHACONS ---
- Pharmacy Consult Date: 02/09/22 Time: 09:07 Referring provider: DR SANTOYO Reason for Consult:: VANCOMYCIN DOSING CONSULT Allergies and ADEs:: Allergies Allergy/AdvReac Type Severity Reaction Status Date / Time Penicillins Allergy Unknown Unknown Verified 01/22/22 11:27 allergy reaction Home Medications:: Home Medications Medication Instructions Recorded Confirmed Type Acetaminophen [Tylenol 500mg 1,000 mg PO Q6HP PRN tab 01/17/22 02/08/22 Rx tablet] Hydrocod/Acet 5/325 mg [[place] 1 tab PO Q4HP PRN #30 tab 01/17/22 02/08/22 Rx 5/325mg tablet] Amlodipine Besylate [Norvasc 5mg 5 mg PO DAILY 01/25/22 02/08/22 History tablet] Aspirin [Aspirin 81mg chewable 81 mg PO DAILY 01/25/22 02/08/22 History tab] Atorvastatin Calcium [Lipitor 40mg 80 mg PO HS 01/25/22 02/08/22 History Tablet*] Clopidogrel Bisulfate [Plavix 75mg 75 mg PO DAILY 01/25/22 02/08/22 History Tab] Rivaroxaban [Xarelto 2.5mg Tab*] 2.5 mg PO BIDWMEAL 01/25/22 02/08/22 History Sitagliptin Phosphate [Januvia 25 mg PO DAILYDM 01/25/22 02/08/22 History 50mg Tablet] bisoproloL fumarate [Zebeta 5mg 5 mg PO DAILY 01/25/22 02/08/22 History tablet] Ascorbate Calcium [Vitamin C] 500 mg PO DAILY 02/08/22 02/08/22 History Cholecalciferol (Vitamin D3) 2,000 unit PO DAILY 02/08/22 02/08/22 History [Vitamin D3 1,000 Unit Cap] Multivitamin [Multi-Vitamin Plain] 1 each PO DAILY 02/08/22 02/08/22 History Zinc Sulfate [Zinc Sulfate 220mg 220 mg PO DAILY 02/08/22 02/08/22 History capsule] Height: 1.93 m Weight: 89.494 kg Laboratory Results:: Laboratory Results - last 24 hr 02/08/22 18:46: WBC 7.5, RBC 2.31 L, Hgb 6.9 L, Hct 21.1 L, MCV 91.2, MCH 29.8, MCHC 32.7, RDW 14.6, Plt Count 419, MPV 8.9, Neut % (Auto) 71.2, Lymph % (Auto) 19.6, [place] % (Auto) 6.5, Eos % (Auto) 2.0, Baso % (Auto) 0.6, Neut # (Auto) 5.3, Lymph # (Auto) 1.5, [place] # (Auto) 0.5, Eos # (Auto) 0.2, Baso # (Auto) 0.1 02/08/22 18:46: Sodium 140, Potassium 3.7, Chloride 105, Carbon Dioxide 26, Anion Gap 12.7, BUN 47 H, Creatinine 3.00 H, Estimated Creat Clear 36, Estimated GFR 21 L, Est GFR ( Amer) 26 L, Glucose 128 H, Calcium 9.3, Total Bilirubin < 0.1 L, AST 38, ALT 78, Alkaline Phosphatase 455 H, Total Protein 7.3, Albumin 3.5, Globulin 3.8 H, Albumin/Globulin Ratio 0.9 L 02/08/22 18:46: PT 12.7 H, INR 1.13 H, APTT 32.2 H 02/08/22 18:46: Iron 23 L, TIBC 300, Iron Saturation 7.66373 L, Ferritin 633 H 02/08/22 18:46: C-Reactive Protein 63.2 H, Vitamin B12 > 1000 H, Folate 6.46 02/08/22 18:46: ESR > 140 H 02/08/22 18:46: Procalcitonin 0.053 02/08/22 19:22: SARS-CoV-2 (PCR) Detected A, Influenza A Untype (PCR) Not detected, Influenza Type B (PCR) Not detected 02/08/22 19:25: Stool Occult Blood Positive A 02/08/22 19:32: Blood Type O Positive, Antibody Screen Negative, Crossmatch (AHG) See Detail 02/08/22 20:28: Lactate 0.9 02/08/22 20:31: Blood Type Confirm O Positive 02/08/22 21:53: POC Glucose 131 H 02/09/22 04:00: Hgb 7.1 L, Hct 21.9 L 02/09/22 07:13: Random Vancomycin 32.8 02/09/22 07:13: WBC 6.4, RBC 2.58 L, Hgb 7.6 L, Hct 23.6 L, MCV 91.3, MCH 29.4, MCHC 32.1, RDW 14.7, Plt Count 388, MPV 9.8, Neut % (Auto) 72.5, Lymph % (Auto) 16.8, [place] % (Auto) 7.6, Eos % (Auto) 2.3, Baso % (Auto) 0.7, Neut # (Auto) 4.7, Lymph # (Auto) 1.1, [place] # (Auto) 0.5, Eos # (Auto) 0.2, Baso # (Auto) 0.0 02/09/22 07:13: Sodium 140, Potassium 3.9, Chloride 107, Carbon Dioxide 25, Anion Gap 11.9, BUN 44 H, Creatinine 2.70 H, Estimated Creat Clear 35, Estimated GFR 24 L, Est GFR ( Amer) 29 L, Glucose 134 H, Calcium 9.1 Medical History: Reports:: Congestive Heart Failure, Diabetes Mellitus Type 2, Hypertension Denies:: Anxiety, Atherosclerotic Heart Disease, Diabetes Mellitus Type 1, Lung Disease, MRSA Assessment and Plan (1) Anemia Status: Acute Qualifiers: Anemia type: iron deficiency Iron deficiency anemia type: chronic blood loss Qualified Code(s)
--- NOTE | 2022-02-09 09:35 | HMH.GSCON ---
*Admission Date: 02/09/22 *Reason for consult:: Anemia; Hemoccult positive *History of present illness: This is a 66-year-old gentleman seen in consultation of Dr. Knutson for evaluation regarding anemia and Hemoccult positive stool. Please see truncated HPI forwarded from admission H&P below. 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 ...On further history patient notes about a week ago he had a couple of days of dark stool that were very black. He attributed some diet change and also the fact that he has recently had COVID infection which was extremely mild from a respiratory standpoint but made him very weak ... in the Emergency department here he was found to have significant anemia, foot had some evidence of redness and infectious changes per the ER note, he was admitted for transfusion, further evaluation of his anemia and his foot situation. Review of Systems - *Gastrointestinal Reports black, tarry stools - *Neurologic Denies dizziness, Denies headache(s) [facility] History Medical History: Reports:: Congestive Heart Failure, Diabetes Mellitus Type 2, Hypertension Denies:: Anxiety, Atherosclerotic Heart Disease, Diabetes Mellitus Type 1, Lung Disease, MRSA *Have you ever received a pneumonia vaccine?: No *Have you received a flu vaccine this season?: No Other Medical History: Reports: Other. Denies: Thyroid Disease Other Surgeries: Yes: No Previous Surgery Amputation: Yes - *Social History Last grade of school completed: High school graduate Smoking Status: Former smoker Tobacco Type: cigarettes Alcohol Intake: former Alcohol Intake Frequency:: 3 or more drinks per day Substance Use Type: denies use *Occupational Status:: retired Housing: longterm Household Members: none *Travel in the last 8 weeks: None - Psychiatric History Pschychiatric History:: Denies:: Anxiety Family Hx:: Cancer, Hyperlipidemia, Hypertension Meds Home Medications Medication Instructions Recorded Confirmed Type Acetaminophen [Tylenol 500mg 1,000 mg PO Q6HP PRN tab 01/17/22 02/08/22 Rx tablet] Hydrocod/Acet 5/325 mg [[place] 1 tab PO Q4HP PRN #30 tab 01/17/22 02/08/22 Rx 5/325mg tablet] Amlodipine Besylate [Norvasc 5mg 5 mg PO DAILY 01/25/22 02/08/22 History tablet] Aspirin [Aspirin 81mg chewable 81 mg PO DAILY 01/25/22 02/08/22 History tab] Atorvastatin Calcium [Lipitor 40mg 80 mg PO HS 01/25/22 02/08/22 History Tablet*] Clopidogrel Bisulfate [Plavix 75mg 75 mg PO DAILY 01/25/22 02/08/22 History Tab] Rivaroxaban [Xarelto 2.5mg Tab*] 2.5 mg PO BIDWMEAL 01/25/22 02/08/22 History Sitagliptin Phosphate [Januvia 25 mg PO DAILYDM 01/25/22 02/08/22 History 50mg Tablet] bisoproloL fumarate [Zebeta 5mg 5 mg PO DAILY 01/25/22 02/08/22 History tablet] Ascorbate Calcium [Vitamin C] 500 mg PO DAILY 02/08/22 02/08/22 History Cholecalciferol (Vitamin D3) 2,000 unit PO DAILY 02/08/22 02/08/22 History [Vitamin D3 1,000 Unit Cap] Multivitamin [Multi-Vitamin Plain] 1 each PO DAILY 02/08/22 02/08/22 History Zinc Sulfate [Zinc Sulfate 220mg 220 mg PO DAILY 02/08/22 02/08/22 History capsule] Allergies Allergy/AdvReac Type Severity Reaction Status Date / Time Penicillins Allergy Unknown Unknown Verified 01/22/22 11:27 allergy reaction Exam Vital signs and Labs for Last 24 Hours: Temp Pulse Resp BP Pulse Ox 98.2 F 73 20 136/72 98 02/09/22 08:00 02/09/22 08:00 02/09/22 08:00 02/09/22 08:00
--- NOTE | 2022-02-09 09:57 | P.PN_ITS ---
[facility] Anesthesia Checklist - Patient Identification Patient Identification: Arm Band - Structural Data Admitted From: Inpatient Planned Operative Procedure/s: egd Consent for Planned Operative Procedure(s) Verified: Yes Verified Documents: Surgical Consent, History and Physical - NPO Status Verified Time NPO: 00:00 - Additional verifications Anesthesia Reactions: No - Airway Assessment C-Spine Mobility Assessed: Yes (mp2) TMJ Mobility Assessed: Yes Dentition: Poor Dentition - Neurological Assessment Level of Consciousness: Awake, Alert - Anesthesia Plan Anesthesia Risk discussed: Yes Anesthesia Plan: Verified ASA Class: III Anesthesia Type: MAC [facility] History I have reviewed the patient's past medical history: Yes Medical History: Reports:: Congestive Heart Failure, Diabetes Mellitus Type 2, Hypertension Denies:: Anxiety, Atherosclerotic Heart Disease, Diabetes Mellitus Type 1, Lung Disease, MRSA *Have you ever received a pneumonia vaccine?: No *Have you received a flu vaccine this season?: No Other Medical History: Reports: Other. Denies: Thyroid Disease Anesthesia experience/problems:: nac Other Surgeries: Yes: Other Amputation: Yes - *Social History Last grade of school completed: High school graduate Smoking Status: Former smoker Tobacco Type: cigarettes Alcohol Intake: former Alcohol Intake Frequency:: 3 or more drinks per day Substance Use Type: denies use *Occupational Status:: retired Housing: shelter Household Members: none *Travel in the last 8 weeks: None - Psychiatric History Pschychiatric History:: Denies:: Anxiety Family Hx:: Cancer, Hyperlipidemia, Hypertension
--- NOTE | 2022-02-09 09:59 | HMH.SCOPE ---
- Procedure: Date: 02/09/22 Patient Date of :: 1955 Procedure Performed:: Esophagogastroduodenoscopy with biopsy Indications:: Anemia Hemoccult positive stool Performing Provider:: Mart Thakur MD Referring Provider:: . Sedation:: Monitored anesthesia care Procedure:: After informed consent was obtained the patient was taken to the endoscopy suite. Sedation ensued after the patient was transferred to the left lateral decubitus position. Pulse, blood pressure, and oxygen saturation were monitored throughout the procedure. The endoscope was advanced beyond the duodenal bulb. Retroflexion within the gastric lumen was accomplished. The gastroscope was carefully removed and the patient was transferred to recovery in stable condition. Please see findings and specimens below for detail. Findings:: No sign of active or recent hemorrhage Sliding hiatal hernia Mild to moderate patchy gastritis Moderate to severe focal/patchy duodenitis Mild pyloric stenosis Specimens:: Antral biopsy Biopsy of duodenal bulb (focal area of increased inflammatory response) Recommendations:: Proton pump inhibition Although focal duodenitis is a possible source of recent hemorrhage, no active hemorrhage/sanguinous ooze noted. May require additional (likely outpatient) evaluation with regard to anemia and Hemoccult positive stool. Complications:: No immediate Estimated blood obtained (mL): 1
--- NOTE | 2022-02-09 10:37 | SUR.PHASEII ---
1020 called and gave detailed report to Umair Albrecht RN [id number] transported via bed to med/surg room. vital signs stable. left in stable condition with Umair Albrecht RN at bedside.
--- NOTE | 2022-02-09 10:52 | P.CONPHA_ITS ---
[facility] Pharmacy VTE Monitoring - Patient Demographics Admission date: 02/08/22 Report Date: 02/09/22 Time: 10:52 Allergies/Adverse Reactions: Patient Allergies Penicillins Allergy (Unknown, Verified 01/22/22 11:27) Unknown allergy reaction Height: 1.93 m Weight: 89.494 kg Patient Problems: Current Active Problems Diabetes (Acute) New onset type 2 diabetes mellitus (Acute) ETOH abuse (Acute) Peripheral arterial disease with history of revascularization (Acute) Contrast dye induced nephropathy (Acute) Anemia (Acute) Occult blood positive stool (Acute) Right foot infection (Acute) Partial traumatic amputation of right foot (Acute) - VTE Risk Labs: VTE Related Lab Results Hgb 7.6 g/dL (14.1-18.0) L 02/09/22 07:13 Hct 23.6 % (42.0-52.0) L 02/09/22 07:13 Plt Count 388 K/mm3 (142-424) 02/09/22 07:13 PT 12.7 seconds (10.1-12.5) H 02/08/22 18:46 INR 1.13 (0.9-1.1) H 02/08/22 18:46 APTT 32.2 seconds (22.8-30.6) H 02/08/22 18:46 BUN 44 mg/dl (9-20) H 02/09/22 07:13 Creatinine 2.70 mg/dl (0.66-1.25) H 02/09/22 07:13 Estimated Creat Clear 35 mL/min (50-200) 02/09/22 07:13 Was VTE Risk Assessment Performed: Yes VTE Score: 8 VTE Risk Level: Moderate Risk Clinical Trial Participant: No - Prophylaxis VTE Prophylaxis Ordered?: Yes Types of VTE Prophylaxis: TEDS Knee High Location of Applied Device: Bilateral Lower Extremeties
--- NOTE | 2022-02-09 11:01 | HMH.PHAINT ---
MEDICATION RECONCILIATION COMPLETE USING MAR FROM [facility].
--- NOTE | 2022-02-09 11:26 | CT_ITS ---
PROCEDURE INFORMATION: Exam: CT Right Lower Extremity Without Contrast, Foot Exam date and time: 02/09/2022 11:51 AM Age: 66 years old Clinical indication: Pain; Foot; Left; Additional info: Ortho consult- had part of foot and toes removed early January TECHNIQUE: Imaging protocol: CT of the Right lower extremity without contrast was performed. Exam focused on the foot. 3D rendering (Not supervised by radiologist): MIP and/or 3D reconstructed images were created by the technologist. Radiation optimization: All CT scans at this facility use at least one of these dose optimization techniques: automated exposure control; mA and/or kV adjustment per patient size (includes targeted exams where dose is matched to clinical indication); or iterative reconstruction. COMPARISON: CT FOOT RT WO/W CON 01/08/2022 1:56 PM FINDINGS: Bones/joints: Cortical irregularity and erosions evident within the cuneiform bones, cuboid, navicular, and distal aspect of the talus. Highly concerning for acute osteomyelitis. Soft tissues: Amputation of the metatarsals since previous CT. Surgical clips and subcutaneous gas noted, with packing material evident. Significant and diffuse soft tissue edema within the remaining portions of the foot, extending to the distal lower leg. IMPRESSION: 1. Amputation of the metatarsals since previous CT. Surgical clips and subcutaneous gas noted, with packing material evident. 2. Cortical irregularity and erosions evident within the cuneiform bones, cuboid, navicular, and distal aspect of the talus. Highly concerning for acute osteomyelitis. 3. Significant and diffuse soft tissue edema within the remaining portions of the foot, extending to the distal lower leg.
--- NOTE | 2022-02-09 11:44 | HMH.ORTHOCON ---
*Admission Date: 02/08/22 *Reason for consult:: Right DM foot infection *History of present illness: This is a 66-year-old diabetic male seen in consultation of Dr. Knutson for evaluation of right foot wound. He has a history of multiple foot debridements, amputation and washouts. Has a history of gas gangrene with osteomyelitis and has been a PICC line. Currently a resident at [facility]. Missed several office appointments with the due to COVID-positive status and the inability to get to the office visits. Was admitted for anemia, Dr. Feng and EGD this morning. [facility] History I have reviewed the patient's past medical history: Yes Medical History: Reports:: Congestive Heart Failure, Diabetes Mellitus Type 2, Hypertension Denies:: Anxiety, Atherosclerotic Heart Disease, Diabetes Mellitus Type 1, Lung Disease, MRSA *Have you ever received a pneumonia vaccine?: No *Have you received a flu vaccine this season?: No Other Medical History: Reports: Other. Denies: Thyroid Disease Anesthesia experience/problems:: nac Other Surgeries: Yes: No Previous Surgery, Other Amputation: Yes - *Social History Last grade of school completed: High school graduate Smoking Status: Former smoker Tobacco Type: cigarettes Alcohol Intake: former Alcohol Intake Frequency:: 3 or more drinks per day Substance Use Type: denies use *Occupational Status:: retired Housing: detention Household Members: none *Travel in the last 8 weeks: None - Psychiatric History Pschychiatric History:: Denies:: Anxiety Family Hx:: Cancer, Hyperlipidemia, Hypertension Review of Systems - Constitutional Reports malaise, Reports weakness - Eyes Denies blind spots - ENT Denies abnormal hearing - *Cardiovascular Denies chest pain, Denies shortness of breath - *Respiratory Denies shortness of breath - *Gastrointestinal Reports nausea - *Genitourinary Denies difficulty urinating - *Musculoskeletal Reports limited joint movement - Integumentary/Breasts Reports wounds (right foot) - *Neurologic Denies dizziness, Denies headache(s) - Endocrine Denies cold intolerance - Hematologic/Lymphatic Reports easy bleeding (xarelto) - Allergic/Immunologic Reports GI upset with certain foods Meds Home Medications Medication Instructions Recorded Confirmed Type RX: Acetaminophen [Tylenol 500mg 1,000 mg PO Q6HP PRN tab 01/17/22 02/08/22 Rx tablet] RX: Hydrocod/Acet 5/325 mg [[place] 1 tab PO Q4HP PRN #30 tab 01/17/22 02/08/22 Rx 5/325mg tablet] RX: Amlodipine Besylate [Norvasc 5 mg PO DAILY 01/25/22 02/08/22 History 5mg tablet] RX: Aspirin [Aspirin 81mg chewable 81 mg PO DAILY 01/25/22 02/08/22 History tab] RX: Atorvastatin Calcium [Lipitor 80 mg PO HS 01/25/22 02/08/22 History 40mg Tablet*] RX: Clopidogrel Bisulfate [Plavix 75 mg PO DAILY 01/25/22 02/08/22 History 75mg Tab] RX: Rivaroxaban [Xarelto 2.5mg 2.5 mg PO BIDWMEAL 01/25/22 02/08/22 History Tab*] RX: Sitagliptin Phosphate [Januvia 25 mg PO DAILYDM 01/25/22 02/08/22 History 50mg Tablet] RX: bisoproloL fumarate [Zebeta 5 mg PO DAILY 01/25/22 02/08/22 History 5mg tablet] Ascorbate Calcium [Vitamin C] 500 mg PO DAILY 02/08/22 02/08/22 History Cholecalciferol (Vitamin D3) 2,000 unit PO DAILY 02/08/22 02/08/22 History [Vitamin D3 1,000 Unit Cap] Multivitamin [Multi-Vitamin Plain] 1 each PO DAILY 02/08/22 02/08/22 History Zinc Sulfate [Zinc Sulfate 220mg 220 mg PO DAILY 02/08/22 02/08/22 History capsule] Vancomycin/Water For Inj (Peg) 1.75 gm IV Q72H 02/09/22 02/09/22 History [Vancomycin 1.75 gm/350 ml Bag] Allergies Allergy/AdvReac Type Severity Reaction Status Date / Time Penicillins Allergy Unknown Unknown Verified 01/22/22 11:27 allergy reaction Exam Vital signs and Labs for Last 24 Hours: Temp Pulse Resp BP Pulse Ox 98.0 F 70 20 141/76 H 98 02/09/22 10:25 02/09/22 10:2
--- NOTE | 2022-02-09 12:41 | PC.NURSE ---
Spoke with staci elizondo pts blood is ready
--- NOTE | 2022-02-09 15:38 | PC.NURSE ---
Pt is A/Ox4 he had an EGD today, would cultures done, consult to ortho, MRI request for friday. He is a little depressed about maybe having a BKA. He tolerated diabetic diet.
--- NOTE | 2022-02-09 19:43 | PC.NURSE ---
Spoke with Dr. Whitman about ortho consult. He wanted pt to have an MRI. I explained we do not have that available until friday. He was not happy, but said he understood.
[2022-02-10] VITALS (12 sets, daily range): BP systolic 134–156; BP diastolic 62–93; PULSE 66–75; RESP 16–18; TEMP 36.6–36.9; O2SAT 96–100; BMI 24.4
[2022-02-10 00:42] LABS: POC Glucose,Bedside 109 (70-110)
[2022-02-10 00:51] LABS: POC Glucose,Bedside 152 (70-110)
[2022-02-10 00:51] LABS: POC Glucose,Bedside 149 (70-110)
[2022-02-10 02:56] LABS: Hematocrit 24.3 % (42.0-52.0); Hemoglobin 8.1 g/dL (14.1-18.0)
--- NOTE | 2022-02-10 04:47 | PC.NURSE ---
pt has rested in intervals, no dark stools, and prn pain medication given 1 time this shift with relief of pain. pt tolerated blood transfusion well, no adverse reactions. he is a&oX4. HR has been 66-79. SBP has been 133-151. lung sounds clear t/o. remains on RA with O2 sats 96-100%. voids per urinal independently. urine is clear/yellow bandage to right foot C/D/I. PICC in ANDREW flushes well, dressing C/D/I with NS infusing at 50 ml/hr. call light within reach , no needs at this time.
[2022-02-10 05:59] LABS: POC Glucose,Bedside 117 (70-110)
[2022-02-10 07:03] LABS: Basophils # 0.1 K/mm3 (0-0.2); Basophils % 0.9 % (0.1-2.0); Eosinophils # 0.1 K/mm3 (0.0-0.4); Eosinophils % 1.7 % (0.1-12.0); Hematocrit 24.8 % (42.0-52.0); Hemoglobin 8.2 g/dL (14.1-18.0); Lymphocytes # 1.2 K/mm3 (0.7-4.5); Mean Corpuscular HGB Conc 33.2 g/dL (31.8-35.4); Mean Corpuscular Hemoglobin 29.4 pg (27.0-31.2); Mean Corpuscular Volume 88.6 fl (80-94); Mean Platelet Volume 9.2 fl (7.4-10.4); Monocytes # 0.4 K/mm3 (0.1-1.0); Monocytes % 5.8 % (1.7-9.3); Neutrophils # 4.8 K/mm3 (1.8-7.8); Neutrophils % 73.6 % (37.0-80.0); Platelet Count 354 K/mm3 (142-424); Red Cell Distribution Width 15.3 % (11.5-17.5); White Blood Count 6.5 K/mm3 (4.8-10.8)
[2022-02-10 07:08] LABS: Chloride 109 mmol/L (98-107)
[2022-02-10 07:09] LABS: Potassium 3.7 mmoL/L (3.5-5.1); Sodium 139 mmol/L (136-145)
[2022-02-10 07:12] LABS: Anion Gap 10.7 mEq/L (5-15); Calcium 9.1 mg/dl (8.4-10.2); Carbon Dioxide 23 mmol/L (22.0-30.0); Glucose 118 mg/dl (74-100)
[2022-02-10 07:17] LABS: Blood Urea Nitrogen 42 mg/dl (9-20); Creatinine Clearance Estimated 38 mL/min (50-200); Estimated Glomerular Filt Rate 26 ml/min (>60); GFR (African American) 32 ML/MIN (>60)
--- NOTE | 2022-02-10 08:45 | HMH.ACPN2 ---
Internal Medicine - PN: Subj *Date: 02/10/22 *Time: 08:45 Interval history: Patient feels better after his transfusion. Denies pain. Is hungry. Exam Vital signs and Labs for Last 24 Hours: Temp Pulse Resp BP Pulse Ox 97.8 F 68 18 149/71 H 100 02/10/22 07:58 02/10/22 07:58 02/10/22 07:58 02/10/22 07:58 02/10/22 07:58 Laboratory Results - last 24 hr 02/08/22 19:32: Blood Type O Positive, Antibody Screen Negative, Crossmatch (AHG) See Detail 02/09/22 12:52: POC Glucose 149 H 02/09/22 17:18: POC Glucose 152 H 02/09/22 21:26: POC Glucose 109 02/10/22 02:50: Hgb 8.1 L, Hct 24.3 L 02/10/22 05:50: POC Glucose 117 H 02/10/22 06:51: WBC 6.5, RBC 2.80 L, Hgb 8.2 L, Hct 24.8 L, MCV 88.6, MCH 29.4, MCHC 33.2, RDW 15.3, Plt Count 354, MPV 9.2, Neut % (Auto) 73.6, Lymph % (Auto) 18.0, [place] % (Auto) 5.8, Eos % (Auto) 1.7, Baso % (Auto) 0.9, Neut # (Auto) 4.8, Lymph # (Auto) 1.2, [place] # (Auto) 0.4, Eos # (Auto) 0.1, Baso # (Auto) 0.1 02/10/22 06:51: Sodium 139, Potassium 3.7, Chloride 109 H, Carbon Dioxide 23, Anion Gap 10.7, BUN 42 H, Creatinine 2.50 H, Estimated Creat Clear 38, Estimated GFR 26 L, Est GFR ( Amer) 32 L, Glucose 118 H, Calcium 9.1 I & O for Last 24 hours: Intake & Output 02/07/22 02/08/22 02/09/22 02/10/22 11:59 11:59 11:59 11:59 Intake Total 1207 / 1207 1131 / 1131 Output Total 875 / 875 Balance 1207 / 1207 256 / 256 Weight 197 lb 4.8 oz 200 lb 9.6 oz Microbiology Reports for the Last 24 Hours: Microbiology 02/09/22 11:00 Foot,Right Gram Stain - Final 02/09/22 11:00 Foot,Right Wound Culture - Preliminary Narrative: ENT exam unchanged, cardiovascular exam unchanged. Patient's color looks better and he is much more energetic this morning. Abdomen soft. Right foot wrapped per podiatry evaluation. Neurologically intact. Assessment and Plan (1) Anemia Status: Acute Qualifiers: Anemia type: iron deficiency Iron deficiency anemia type: chronic blood loss Qualified Code(s): D50.0 - Iron deficiency anemia secondary to blood loss (chronic) Category: Medical Code(s): D64.9 - Anemia, unspecified (2) Occult blood positive stool Status: Acute Category: Medical Code(s): R19.5 - Other fecal abnormalities (3) Partial traumatic amputation of right foot Status: Acute Qualifiers: Encounter type: initial encounter Qualified Code(s): S98.921A - Partial traumatic amputation of right foot, level unspecified, initial encounter Category: Medical Code(s): S98.921A - Partial traumatic amputation of right foot, level unspecified, initial encounter (4) Right foot infection Status: Acute Category: Medical Code(s): L08.9 - Local infection of the skin and subcutaneous tissue, unspecified (5) Diabetes Status: Acute Qualifiers: Category: Medical Code(s): E11.9 - Type 2 diabetes mellitus without complications (6) ETOH abuse Status: Acute Category: Social Hx Code(s): F10.10 - Alcohol abuse, uncomplicated (7) New onset type 2 diabetes mellitus Status: Acute Category: Medical Code(s): E11.9 - Type 2 diabetes mellitus without complications (8) Peripheral arterial disease with history of revascularization Status: Acute Category: Medical Code(s): I73.9 - Peripheral vascular disease, unspecified; Z98.890 - Other specified postprocedural states (9) Foot osteomyelitis, right Status: Acute Category: Medical Code(s): M86.9 - Osteomyelitis, unspecified (10) Gangrene of right foot Status: Acute Category: Medical Code(s): I96 - Gangrene, not elsewhere classified (11) Gas gangrene Status: Acute Category: Medical Code(s): A48.0 - Gas gangrene - Assessment and plan all Dx Assessment and Plan for all problems:: 1. Anemia secondary to GI blood loss. Appreciate surgical input and scope. Agree with PPI. No evidence of ongoing bleeding. Check blood counts tomorrow. 2. Appreciate p
--- NOTE | 2022-02-10 09:59 | P.PN_ITS ---
Subjective Patient reports: no new complaints, feels better Progress Note: A&P (1) Anemia Status: Acute Assessment and plan: Less than adequate response to blood transfusion. No definitive sign of ongoing blood loss. Repeat hemoglobin/hematocrit ordered for 14:00 Continue PPI Transfuse if/when needed Further evaluation [UGI/SBFT followed by capsule endoscopy; colonoscopy, etc. ] with regard to possible gastrointestinal source warranted; however, this can hopefully be completed as an outpatient. Will defer further evaluation to more immediate orthopedic concerns. If the patient does undergo additional intervention such as amputation, his operative blood loss must be considered in addition to possible additional gastrointestinal loss. (2) Occult blood positive stool Status: Acute (3) Partial traumatic amputation of right foot Status: Acute (4) Right foot infection Status: Acute (5) Diabetes Status: Acute (6) ETOH abuse Status: Acute (7) New onset type 2 diabetes mellitus Status: Acute (8) Peripheral arterial disease with history of revascularization Status: Acute (9) Foot osteomyelitis, right Status: Acute (10) Gangrene of right foot Status: Acute (11) Gas gangrene Status: Acute Exam Vital signs and Labs for Last 24 Hours: Temp Pulse Resp BP Pulse Ox 97.8 F 68 18 149/71 H 100 02/10/22 07:58 02/10/22 07:58 02/10/22 07:58 02/10/22 07:58 02/10/22 07:58 Laboratory Results - last 24 hr 02/08/22 19:32: Blood Type O Positive, Antibody Screen Negative, Crossmatch (AHG) See Detail 02/09/22 12:52: POC Glucose 149 H 02/09/22 17:18: POC Glucose 152 H 02/09/22 21:26: POC Glucose 109 02/10/22 02:50: Hgb 8.1 L, Hct 24.3 L 02/10/22 05:50: POC Glucose 117 H 02/10/22 06:51: WBC 6.5, RBC 2.80 L, Hgb 8.2 L, Hct 24.8 L, MCV 88.6, MCH 29.4, MCHC 33.2, RDW 15.3, Plt Count 354, MPV 9.2, Neut % (Auto) 73.6, Lymph % (Auto) 18.0, [place] % (Auto) 5.8, Eos % (Auto) 1.7, Baso % (Auto) 0.9, Neut # (Auto) 4.8, Lymph # (Auto) 1.2, [place] # (Auto) 0.4, Eos # (Auto) 0.1, Baso # (Auto) 0.1 02/10/22 06:51: Sodium 139, Potassium 3.7, Chloride 109 H, Carbon Dioxide 23, Anion Gap 10.7, BUN 42 H, Creatinine 2.50 H, Estimated Creat Clear 38, Estimated GFR 26 L, Est GFR ( Amer) 32 L, Glucose 118 H, Calcium 9.1 I & O for Last 24 hours: Intake & Output 02/07/22 02/08/22 02/09/22 02/10/22 11:59 11:59 11:59 11:59 Intake Total 1207 / 1207 1371 / 1371 Output Total 875 / 875 Balance 1207 / 1207 496 / 496 Weight 197 lb 4.8 oz 200 lb 9.6 oz Microbiology Reports for the Last 24 Hours: Microbiology 02/09/22 11:00 Foot,Right Gram Stain - Final 02/09/22 11:00 Foot,Right Wound Culture - Preliminary - Constitutional no acute distress - *Routine Respiratory Exam Absent: respiratory distress - *Routine Cardiovascular Exam Absent: tachycardia
--- NOTE | 2022-02-10 12:12 | HMH.ORTHOCON ---
*Admission Date: 02/08/22 *Reason for consult:: Right foot gangrene *History of present illness: This is a 66-year-old diabetic male seen in consultation of Dr. Knutson for evaluation of right foot wound. He has a history of multiple foot debridements, amputation and washouts. Has a history of gas gangrene with osteomyelitis and has been a PICC line. Currently a resident at [facility]. Missed several office appointments with the due to COVID-positive status and the inability to get to the office visits. Was admitted for anemia, Dr. Feng and EGD this morning. [facility] History Medical History: Reports:: Congestive Heart Failure, Diabetes Mellitus Type 2, Hypertension Denies:: Anxiety, Atherosclerotic Heart Disease, Diabetes Mellitus Type 1, Lung Disease, MRSA *Have you ever received a pneumonia vaccine?: No *Have you received a flu vaccine this season?: No Other Medical History: Reports: Other. Denies: Thyroid Disease Anesthesia experience/problems:: nac Other Surgeries: Yes: No Previous Surgery, Other Amputation: Yes - *Social History Last grade of school completed: High school graduate Smoking Status: Former smoker Tobacco Type: cigarettes Alcohol Intake: former Alcohol Intake Frequency:: 3 or more drinks per day Substance Use Type: denies use *Occupational Status:: retired Housing: [facility] Household Members: none *Travel in the last 8 weeks: None - Psychiatric History Pschychiatric History:: Denies:: Anxiety Family Hx:: Cancer, Hyperlipidemia, Hypertension Review of Systems - Review of Systems Review of systems:: pertinent systems reviewed and negative unless documented below - *Cardiovascular Denies chest pain - *Respiratory Denies shortness of breath - *Gastrointestinal Denies abdominal pain - *Genitourinary Denies difficulty urinating - *Musculoskeletal Reports abnormal walking, Reports joint pain - *Neurologic Reports abnormal walking, Reports weakness, Denies abnormal hearing, Denies dizziness, Denies headache(s) Meds Home Medications Medication Instructions Recorded Confirmed Type Acetaminophen [Tylenol 500mg 1,000 mg PO Q6HP PRN tab 01/17/22 02/08/22 Rx tablet] Hydrocod/Acet 5/325 mg [[place] 1 tab PO Q4HP PRN #30 tab 01/17/22 02/08/22 Rx 5/325mg tablet] Amlodipine Besylate [Norvasc 5mg 5 mg PO DAILY 01/25/22 02/08/22 History tablet] Aspirin [Aspirin 81mg chewable 81 mg PO DAILY 01/25/22 02/08/22 History tab] Atorvastatin Calcium [Lipitor 40mg 80 mg PO HS 01/25/22 02/08/22 History Tablet*] Clopidogrel Bisulfate [Plavix 75mg 75 mg PO DAILY 01/25/22 02/08/22 History Tab] Rivaroxaban [Xarelto 2.5mg Tab*] 2.5 mg PO BIDWMEAL 01/25/22 02/08/22 History Sitagliptin Phosphate [Januvia 25 mg PO DAILYDM 01/25/22 02/08/22 History 50mg Tablet] bisoproloL fumarate [Zebeta 5mg 5 mg PO DAILY 01/25/22 02/08/22 History tablet] Ascorbate Calcium [Vitamin C] 500 mg PO DAILY 02/08/22 02/08/22 History Cholecalciferol (Vitamin D3) 2,000 unit PO DAILY 02/08/22 02/08/22 History [Vitamin D3 1,000 Unit Cap] Multivitamin [Multi-Vitamin Plain] 1 each PO DAILY 02/08/22 02/08/22 History Zinc Sulfate [Zinc Sulfate 220mg 220 mg PO DAILY 02/08/22 02/08/22 History capsule] Vancomycin/Water For Inj (Peg) 1.75 gm IV Q72H 02/09/22 02/09/22 History [Vancomycin 1.75 gm/350 ml Bag] Allergies Allergy/AdvReac Type Severity Reaction Status Date / Time Penicillins Allergy Unknown Unknown Verified 01/22/22 11:27 allergy reaction Exam Vital signs and Labs for Last 24 Hours: Temp Pulse Resp BP Pulse Ox 97.8 F 68 18 149/71 H 100 02/10/22 07:58 02/10/22 07:58 02/10/22 07:58 02/10/22 07:58 02/10/22 07:58 Laboratory Results - last 24 hr 02/08/22 19:32: Blood Type O Positive, Antibody Screen Negative, Crossmatch (AHG) See Detail 02/09/22 12:52: POC Glucose 149 H 02/09/22 17:18: POC Glucose 152 H 02/09/22 21:26: P
--- NOTE | 2022-02-10 13:39 | PC.NURSE ---
PT IS RESTING IN BED. MEDICATED PER SEP FOR DISCOMFORT. CONSULTED TODAY AND REQUESTED FOR DRESSING TO BE REMOVED SO HE COULD ASSESS WOUND. 32 EDGAR TOTAL WERE REMOVED WITH AT BEDSIDE. NECROTIC TISSUE WITH TUNNELING NOTED. NEW DRESSING APPLIED WITH BEDADINE SOAKED 4X4'S, DRY KERLIX AND HORACE WRAP. THE PLAN FOR PT TO BE NPO AFTER MIDNIGHT FRIDAY AND FOR SURGERY TO TAKE PLACE FRIDAY IF PT IS MEDICALLY STABLE. WILL CONTINUE TO MONITOR.
[2022-02-10 14:42] LABS: Hemoglobin 8.1 g/dL (14.1-18.0)
[2022-02-10 15:15] LABS: Vancomycin,Trough 18.6 ug/mL (5.0-10.0)
[2022-02-10 18:12] LABS: Vancomycin,Peak 47.5 ug/ml (11-39)
[2022-02-11] VITALS (7 sets, daily range): BP systolic 131–162; BP diastolic 65–78; PULSE 69–78; RESP 16–21; TEMP 36.6–37; O2SAT 94–99; BMI 24.7
--- NOTE | 2022-02-11 04:46 | PC.NURSE ---
Addendum entered by Debra Garber RN 02/11/22 06:36: Changed PICC line dressing using aseptic technique. Patient tolerated well. 02/11/22 0630 Original Note: Patient rested well this shift. Patient a&ox4. Medicated for pain per MAR x1. Dressing to rt leg is CDI. Patient is scheduled to have an MRI today. Patient is tolerating RA with sats above 90%. Patient in covid precautions. Picc line to the left arm blood return noted and flushes well. Patient states dressing to picc line was changed 02/08. Patient encouraged to call out for any needs. No complaints at this time.
[2022-02-11 06:43] LABS: Basophils # 0.1 K/mm3 (0-0.2); Basophils % 0.8 % (0.1-2.0); Eosinophils # 0.2 K/mm3 (0.0-0.4); Eosinophils % 2.8 % (0.1-12.0); Lymphocytes # 1.2 K/mm3 (0.7-4.5); Lymphocytes % 18.3 % (10-50); Mean Corpuscular HGB Conc 33.4 g/dL (31.8-35.4); Mean Corpuscular Hemoglobin 29.9 pg (27.0-31.2); Mean Corpuscular Volume 89.4 fl (80-94); Mean Platelet Volume 8.9 fl (7.4-10.4); Monocytes # 0.5 K/mm3 (0.1-1.0); Monocytes % 7.2 % (1.7-9.3); Neutrophils # 4.6 K/mm3 (1.8-7.8); Neutrophils % 70.8 % (37.0-80.0); Platelet Count 358 K/mm3 (142-424); Red Blood Count 2.68 M/mm3 (4.60-6.20); Red Cell Distribution Width 15.4 % (11.5-17.5); White Blood Count 6.6 K/mm3 (4.8-10.8)
[2022-02-11 06:44] LABS: Hematocrit 23.9 % (42.0-52.0)
[2022-02-11 07:13] LABS: Chloride 111 mmol/L (98-107); Potassium 3.7 mmoL/L (3.5-5.1); Sodium 138 mmol/L (136-145)
[2022-02-11 07:15] LABS: Blood Urea Nitrogen 38 mg/dl (9-20); Creatinine Clearance Estimated 37 mL/min (50-200); Estimated Glomerular Filt Rate 25 ml/min (>60); GFR (African American) 30 ML/MIN (>60)
[2022-02-11 07:16] LABS: Anion Gap 8.7 mEq/L (5-15); Carbon Dioxide 22 mmol/L (22.0-30.0); Glucose 111 mg/dl (74-100)
--- NOTE | 2022-02-11 08:58 | CARE MANAGER ---
Contacted Dr. Whitman this morning regarding MRI order. He states that we can cancel.
--- NOTE | 2022-02-11 10:56 | HMH.PHACONS ---
- Pharmacy Consult Date: 02/11/22 Time: 10:56 Referring provider: DR. SANTOYO Reason for Consult:: VANCOMYCIN LEVELS Allergies and ADEs:: Allergies Allergy/AdvReac Type Severity Reaction Status Date / Time Penicillins Allergy Unknown Unknown Verified 01/22/22 11:27 allergy reaction Home Medications:: Home Medications Medication Instructions Recorded Confirmed Type Acetaminophen [Tylenol 500mg 1,000 mg PO Q6HP PRN tab 01/17/22 02/08/22 Rx tablet] Hydrocod/Acet 5/325 mg [[place] 1 tab PO Q4HP PRN #30 tab 01/17/22 02/08/22 Rx 5/325mg tablet] Amlodipine Besylate [Norvasc 5mg 5 mg PO DAILY 01/25/22 02/08/22 History tablet] Aspirin [Aspirin 81mg chewable 81 mg PO DAILY 01/25/22 02/08/22 History tab] Atorvastatin Calcium [Lipitor 40mg 80 mg PO HS 01/25/22 02/08/22 History Tablet*] Clopidogrel Bisulfate [Plavix 75mg 75 mg PO DAILY 01/25/22 02/08/22 History Tab] Rivaroxaban [Xarelto 2.5mg Tab*] 2.5 mg PO BIDWMEAL 01/25/22 02/08/22 History Sitagliptin Phosphate [Januvia 25 mg PO DAILYDM 01/25/22 02/08/22 History 50mg Tablet] bisoproloL fumarate [Zebeta 5mg 5 mg PO DAILY 01/25/22 02/08/22 History tablet] Ascorbate Calcium [Vitamin C] 500 mg PO DAILY 02/08/22 02/08/22 History Cholecalciferol (Vitamin D3) 2,000 unit PO DAILY 02/08/22 02/08/22 History [Vitamin D3 1,000 Unit Cap] Multivitamin [Multi-Vitamin Plain] 1 each PO DAILY 02/08/22 02/08/22 History Zinc Sulfate [Zinc Sulfate 220mg 220 mg PO DAILY 02/08/22 02/08/22 History capsule] Vancomycin/Water For Inj (Peg) 1.75 gm IV Q72H 02/09/22 02/09/22 History [Vancomycin 1.75 gm/350 ml Bag] Height: 1.93 m Weight: 91.989 kg Laboratory Results:: Laboratory Results - last 24 hr 02/10/22 14:25: Vancomycin Trough 18.6 H 02/10/22 14:25: Hgb 8.1 L, Hct 25.0 L 02/10/22 17:25: Vancomycin Peak 47.5 H* 02/11/22 06:20: WBC 6.6, RBC 2.68 L, Hgb 8.0 L, Hct 23.9 L, MCV 89.4, MCH 29.9, MCHC 33.4, RDW 15.4, Plt Count 358, MPV 8.9, Neut % (Auto) 70.8, Lymph % (Auto) 18.3, [place] % (Auto) 7.2, Eos % (Auto) 2.8, Baso % (Auto) 0.8, Neut # (Auto) 4.6, Lymph # (Auto) 1.2, [place] # (Auto) 0.5, Eos # (Auto) 0.2, Baso # (Auto) 0.1 02/11/22 06:20: Sodium 138, Potassium 3.7, Chloride 111 H, Carbon Dioxide 22, Anion Gap 8.7, BUN 38 H, Creatinine 2.60 H, Estimated Creat Clear 37, Estimated GFR 25 L, Est GFR ( Amer) 30 L, Glucose 111 H, Calcium 9.0 Medical History: Reports:: Congestive Heart Failure, Diabetes Mellitus Type 2, Hypertension Denies:: Anxiety, Atherosclerotic Heart Disease, Diabetes Mellitus Type 1, Lung Disease, MRSA Assessment and Plan (1) Anemia Status: Acute Qualifiers: Anemia type: iron deficiency Iron deficiency anemia type: chronic blood loss Qualified Code(s): D50.0 - Iron deficiency anemia secondary to blood loss (chronic) Category: Medical Code(s): D64.9 - Anemia, unspecified (2) Occult blood positive stool Status: Acute Category: Medical Code(s): R19.5 - Other fecal abnormalities (3) Partial traumatic amputation of right foot Status: Acute Qualifiers: Encounter type: initial encounter Qualified Code(s): S98.921A - Partial traumatic amputation of right foot, level unspecified, initial encounter Category: Medical Code(s): S98.921A - Partial traumatic amputation of right foot, level unspecified, initial encounter (4) Right foot infection Status: Acute Category: Medical Code(s): L08.9 - Local infection of the skin and subcutaneous tissue, unspecified (5) Diabetes Status: Acute Qualifiers: Category: Medical Code(s): E11.9 - Type 2 diabetes mellitus without complications (6) ETOH abuse Status: Acute Category: Social Hx Code(s): F10.10 - Alcohol abuse, uncomplicated (7) New onset type 2 diabetes mellitus Status: Acute Category: Medical Code(s): E11.9 - Type 2 diabetes mellitus without complications (8) Peripheral arterial disease with
--- NOTE | 2022-02-11 11:47 | HMH.ORTHPN ---
Subjective Date: 02/11/22 <SaxenaSasha dela cruz - 02/11/22 11:49> Time: 11:30 <Sasha Saxena - 02/11/22 11:49> Principal diagnosis: Right foot gangrene <Saxena,Sasha - 02/11/22 11:56> Interval history: Mr. Hernandez is a 66-year-old diabetic male patient admitted to the inpatient service secondary to anemia. Orthopedic services were consulted regarding his right foot wound/gangrene. The patient has a history of multiple foot debridements, amputation, and washouts. He has a history of gas gangrene with osteomyelitis and has a PICC line placed. He currently resides at [facility]. This morning the patient is lying comfortably in bed. He states that he has minimal pain in his right foot, but that it is not any different from usual. He denies any history of fevers, chills, or rigors. His past medical history is significant for diabetes, osteomyelitis, hypertension, tobacco abuse, EtOH abuse, peripheral arterial disease, chronic kidney disease, and anemia. He is currently positive for COVID-19. He denies any other symptoms or concerns at this time. <Sasha Saxena - 02/11/22 12:05> PN: Obj Ex Vital signs: Temp Pulse Resp BP Pulse Ox 98.1 F 77 18 152/76 H 100 02/12/22 07:25 02/12/22 07:25 02/12/22 07:25 02/12/22 07:25 02/12/22 07:25 <Garrett Whitman JR - 02/12/22 11:06> Temp Pulse Resp BP Pulse Ox 98.3 F 78 21 162/77 H 99 02/11/22 08:00 02/11/22 08:00 02/11/22 08:00 02/11/22 08:00 02/11/22 08:00 <Sasha Saxena - 02/11/22 11:49> - Constitutional no acute distress, cooperative <Sasha Saxena - 02/11/22 11:56> - Routine HEENT Exam Head: Present: normocephalic, atraumatic <Sasha Saxena 02/11/22 11:56> Eye: Present: EOMI, PERRL <Sasha Saxena 02/11/22 11:56> ENT: Present: mucous membranes moist <Sasha Saxena 02/11/22 11:56> - Routine Neck Exam Present: supple, full ROM, trachea midline. Absent: JVD, lymphadenopathy <Sasha Saxena 02/11/22 11:56> - Routine Respiratory Exam Absent: accessory muscle use, respiratory distress <Sasha Saxena 02/11/22 11:56> Comments: Symmetric chest movement, able to speak in complete sentences <Sasha Saxena 02/11/22 11:56> - Routine Cardiovascular Exam Present: RRR <Sasha Saxena 02/11/22 11:56> Comments: Normal peripheral pulses <Sasha Saxena 02/11/22 11:56> - Routine Abdominal Exam Present: soft. Absent: tenderness <Sasha Saxena 02/11/22 11:56> - Routine Extremities Exam Comments: Upon examination of the right foot/ankle: Dressings present are clean, dry, and intact. No evidence of drainage or bleeding noted. Thigh and calf are soft nontender; Homans' sign is negative. No clinical evidence of DVT noted. Good muscle strength demonstrated with flexion extension of the knee joint against resistance. Sensation to light touch is grossly intact; sensation is diminished to mid [place]. <Sasha Saxena 02/11/22 12:00> - Routine Skin Exam Present: intact, warm, normal turgor. Absent: cyanosis, erythema, lesions, jaundice <Sasha Saxena 02/11/22 11:56> - Routine Neurological Exam Present: alert, oriented X3, CN II-XII intact, moving all extremities, normal tone, normal speech. Absent: sensory deficit, motor deficit, altered mental status <Sasha Saxena 02/11/22 11:56> - Routine Psychiatric Exam Present: normal affect, cooperative <Sasha Saxena 02/11/22 11:56> Progress Note: A&P (1) Anemia Status: Acute (2) Occult blood positive stool Status: Acute (3) Partial traumatic amputation of right foot Status: Acute (4) Right foot infection Status: Acute (5) Diabetes Status: Acute (6) ETOH abuse Status: Acute (7) New onset type 2 diabetes mellitus Status: Acute (8) Peripheral arterial disease with history of revascularization Status: Acute (9) Foot osteomyelitis, right Status: Acute (10) Gangrene of
--- NOTE | 2022-02-11 14:31 | SW/DCPLANNER ---
Addendum entered by Rosalie Herrera 02/15/22 09:04: This patient has been approved for admission at [facility] today. Per Eileen shea/ [facility] patient does not need a COVID swab prior to discharge. Patient will return to [facility] today. Addendum entered by Rosalie Herrera 02/13/22 12:51: Precert has been started on this patient per Eileen shea/ [facility]. Addendum entered by Rosalie Herrera 02/13/22 07:57: Updated patient information has been faxed to Eileen shea/ [facility]. Original Note: This patient currently resides at [facility] level of care. Patient will require a new authorization prior to returning to [facility]. Patient will have surgery tomorrow. I will continue to follow up w/: Eileen at [facility], patient and MD.
--- NOTE | 2022-02-11 14:40 | HMH.ACPN2 ---
Internal Medicine - PN: Subj *Date: 02/11/22 *Time: 14:40 Interval history: Patient rested well through the night. Has had a good appetite. No complaints. He is coming to terms emotionally with his pending BKA scheduled for tomorrow. Exam Vital signs and Labs for Last 24 Hours: Temp Pulse Resp BP Pulse Ox 98.1 F 74 20 156/70 H 99 02/11/22 12:00 02/11/22 12:00 02/11/22 12:00 02/11/22 12:00 02/11/22 12:00 Laboratory Results - last 24 hr 02/10/22 14:25: Vancomycin Trough 18.6 H 02/10/22 14:25: Hgb 8.1 L, Hct 25.0 L 02/10/22 17:25: Vancomycin Peak 47.5 H* 02/11/22 06:20: WBC 6.6, RBC 2.68 L, Hgb 8.0 L, Hct 23.9 L, MCV 89.4, MCH 29.9, MCHC 33.4, RDW 15.4, Plt Count 358, MPV 8.9, Neut % (Auto) 70.8, Lymph % (Auto) 18.3, [place] % (Auto) 7.2, Eos % (Auto) 2.8, Baso % (Auto) 0.8, Neut # (Auto) 4.6, Lymph # (Auto) 1.2, [place] # (Auto) 0.5, Eos # (Auto) 0.2, Baso # (Auto) 0.1 02/11/22 06:20: Sodium 138, Potassium 3.7, Chloride 111 H, Carbon Dioxide 22, Anion Gap 8.7, BUN 38 H, Creatinine 2.60 H, Estimated Creat Clear 37, Estimated GFR 25 L, Est GFR ( Amer) 30 L, Glucose 111 H, Calcium 9.0 I & O for Last 24 hours: Intake & Output 02/09/22 02/10/22 02/11/22 02/12/22 11:59 11:59 11:59 11:59 Intake Total 1207 / 1207 1371 / 1371 460 / 460 280 / 280 Output Total 875 / 875 1400 / 1400 450 / 450 Balance 1207 / 1207 496 / 496 -940 / -940 -170 / -170 Weight 197 lb 4.8 oz 200 lb 9.613 oz 202 lb 12.8 oz Microbiology Reports for the Last 24 Hours: Microbiology 02/09/22 11:00 Foot,Right Gram Stain - Final 02/09/22 11:00 Foot,Right Wound Culture - Preliminary 02/08/22 20:31 Blood - Random Blood Culture - Preliminary NO GROWTH AFTER 48 HOURS 02/08/22 20:31 Blood - Random Blood Culture - Preliminary NO GROWTH AFTER 48 HOURS Narrative: Patient is alert, pleasant. Color looks better. Lungs have smokers rhonchi but otherwise clear, heart rate regular. Abdomen soft. Neurologically intact. Foot/leg exam per orthopedics. No fevers through the night. Assessment and Plan (1) Anemia Status: Acute Qualifiers: Anemia type: iron deficiency Iron deficiency anemia type: chronic blood loss Qualified Code(s): D50.0 - Iron deficiency anemia secondary to blood loss (chronic) Category: Medical Code(s): D64.9 - Anemia, unspecified (2) Occult blood positive stool Status: Acute Category: Medical Code(s): R19.5 - Other fecal abnormalities (3) Partial traumatic amputation of right foot Status: Acute Qualifiers: Encounter type: initial encounter Qualified Code(s): S98.921A - Partial traumatic amputation of right foot, level unspecified, initial encounter Category: Medical Code(s): S98.921A - Partial traumatic amputation of right foot, level unspecified, initial encounter (4) Right foot infection Status: Acute Category: Medical Code(s): L08.9 - Local infection of the skin and subcutaneous tissue, unspecified (5) Diabetes Status: Acute Qualifiers: Category: Medical Code(s): E11.9 - Type 2 diabetes mellitus without complications (6) ETOH abuse Status: Acute Category: Social Hx Code(s): F10.10 - Alcohol abuse, uncomplicated (7) New onset type 2 diabetes mellitus Status: Acute Category: Medical Code(s): E11.9 - Type 2 diabetes mellitus without complications (8) Peripheral arterial disease with history of revascularization Status: Acute Category: Medical Code(s): I73.9 - Peripheral vascular disease, unspecified; Z98.890 - Other specified postprocedural states (9) Foot osteomyelitis, right Status: Acute Category: Medical Code(s): M86.9 - Osteomyelitis, unspecified (10) Gangrene of right foot Status: Acute Category: Medical Code(s): I96 - Gangrene, not elsewhere classified (11) Gas gangrene Status: Acute Category: Medical Code(s): A48.0 - Gas gangrene
--- NOTE | 2022-02-11 15:11 | PC.NURSE ---
rounded on patient. educated patient on how to use room phone if needed. no questions or concerns at this time. Popsicle obtained for patient and urinal emptied. tossed meal tray. no other needs voiced. encouraged patient to ring out if he needed help getting in contact with his son, or any other needs. understands plan of care as of now. plan for surgery tomorrow
--- NOTE | 2022-02-11 16:49 | PC.NURSE ---
PT IS RESTING IN BED. ALERT AND ORIENTED X4. DRESSING TO THE RLE WAS CHANGED THIS SHIFT. PT GETS VERY UPSET WHEN ANYONE TALKS ABOUT THE SURGERY THAT IS PLANNED FOR TOMORROW. PT STATED HE DOES NOT LIKE ANYTHING THAT IS ABOUT TO HAPPEN BUT UNDERSTANDS WHY IT NEEDS TO BE DONE. LUNG SOUNDS CLEAR. ABDOMEN SOFT/NON TENDER WITH ACTIVE BOWEL SOUNDS. WILL CONTINUE TO MONITOR.
[2022-02-11 19:22] LABS: POC Glucose,Bedside 139 (70-110)
[2022-02-11 19:22] LABS: POC Glucose,Bedside 162 (70-110)
[2022-02-12] VITALS (26 sets, daily range): BP systolic 116–163; BP diastolic 56–86; PULSE 70–88; RESP 13–21; TEMP 36.4–43; O2SAT 96–100; BMI 24.6
--- NOTE | 2022-02-12 04:00 | PC.NURSE ---
pt rested well through the night, pt medicated x1 for pain in right foot; VSS, lungs cta; 02 sats remain 97-99% on room air, pt verbalized mixed emotions regarding upcoming possible surgery of amputation; pt requests visitors; dressing intact to right foot and noted small to moderate amount drainage under dressing, PICC line intact to ANDREW; no other issues for concerns at this time.
[2022-02-12 08:00] LABS: Basophils # 0.1 K/mm3 (0-0.2); Basophils % 0.9 % (0.1-2.0); Eosinophils # 0.2 K/mm3 (0.0-0.4); Eosinophils % 2.5 % (0.1-12.0); Hematocrit 24.5 % (42.0-52.0); Lymphocytes # 1.3 K/mm3 (0.7-4.5); Mean Corpuscular HGB Conc 32.8 g/dL (31.8-35.4); Mean Corpuscular Hemoglobin 29.4 pg (27.0-31.2); Mean Corpuscular Volume 89.6 fl (80-94); Mean Platelet Volume 9.3 fl (7.4-10.4); Monocytes # 0.4 K/mm3 (0.1-1.0); Monocytes % 5.2 % (1.7-9.3); Neutrophils # 5.4 K/mm3 (1.8-7.8); Neutrophils % 73.5 % (37.0-80.0); Platelet Count 371 K/mm3 (142-424); Red Blood Count 2.73 M/mm3 (4.60-6.20); Red Cell Distribution Width 15.2 % (11.5-17.5); White Blood Count 7.4 K/mm3 (4.8-10.8)
--- NOTE | 2022-02-12 08:07 | HMH.ACPN2 ---
Internal Medicine - PN: Subj *Date: 02/12/22 *Time: 08:37 Interval history: No acute events overnight. Tolerating PO intake. This morning. Remains afebrile. Hemoglobin stable this morning. Exam Vital signs and Labs for Last 24 Hours: Temp Pulse Resp BP Pulse Ox 98.1 F 77 18 152/76 H 100 02/12/22 07:25 02/12/22 07:25 02/12/22 07:25 02/12/22 07:25 02/12/22 07:25 Laboratory Results - last 24 hr 02/11/22 11:29: POC Glucose 139 H 02/11/22 16:13: POC Glucose 162 H 02/12/22 07:42: WBC 7.4, RBC 2.73 L, Hgb 8.0 L, Hct 24.5 L, MCV 89.6, MCH 29.4, MCHC 32.8, RDW 15.2, Plt Count 371, MPV 9.3, Neut % (Auto) 73.5, Lymph % (Auto) 18.0, [place] % (Auto) 5.2, Eos % (Auto) 2.5, Baso % (Auto) 0.9, Neut # (Auto) 5.4, Lymph # (Auto) 1.3, [place] # (Auto) 0.4, Eos # (Auto) 0.2, Baso # (Auto) 0.1 I & O for Last 24 hours: Intake & Output 02/09/22 02/10/22 02/11/22 02/12/22 23:59 23:59 23:59 23:59 Intake Total 1717 / 1717 1001 / 1001 860 / 860 Output Total 575 / 575 1700 / 1700 950 / 950 775 / 775 Balance 1142 / 1142 -699 / -699 -90 / -90 -775 / -775 Weight 90.991 kg 91.989 kg 91.881 kg Microbiology Reports for the Last 24 Hours: Microbiology 02/09/22 11:00 Foot,Right Gram Stain - Final 02/09/22 11:00 Foot,Right Wound Culture - Preliminary Narrative: - Constitutional no acute distress, pale, pleasant, talkative, alert, oriented x3. - *Routine HEENT Exam Head: Present: normocephalic Eye: Present: EOMI, PERRL ENT: Present: mucous membranes moist - *Routine Neck Exam Present: supple. Absent: lymphadenopathy - *Routine Respiratory Exam Present: CTA bilaterally - *Routine Cardiovascular Exam Present: RRR, murmur - *Routine Abdominal Exam Present: soft, normoactive bowel sounds. Absent: tenderness - *Routine Extremities Exam Absent: cyanosis, clubbing, edema; Left foot in luis wrap, bloody at distal stump. Good pulses. - *Routine Skin Exam Present: warm. Absent: rash Assessment and Plan (1) Anemia Status: Acute Qualifiers: Anemia type: iron deficiency Iron deficiency anemia type: chronic blood loss Qualified Code(s): D50.0 - Iron deficiency anemia secondary to blood loss (chronic) Category: Medical Code(s): D64.9 - Anemia, unspecified (2) Occult blood positive stool Status: Acute Category: Medical Code(s): R19.5 - Other fecal abnormalities (3) Partial traumatic amputation of right foot Status: Acute Qualifiers: Encounter type: initial encounter Qualified Code(s): S98.921A - Partial traumatic amputation of right foot, level unspecified, initial encounter Category: Medical Code(s): S98.921A - Partial traumatic amputation of right foot, level unspecified, initial encounter (4) Right foot infection Status: Acute Category: Medical Code(s): L08.9 - Local infection of the skin and subcutaneous tissue, unspecified (5) Diabetes Status: Acute Qualifiers: Category: Medical Code(s): E11.9 - Type 2 diabetes mellitus without complications (6) ETOH abuse Status: Acute Category: Social Hx Code(s): F10.10 - Alcohol abuse, uncomplicated (7) New onset type 2 diabetes mellitus Status: Acute Category: Medical Code(s): E11.9 - Type 2 diabetes mellitus without complications (8) Peripheral arterial disease with history of revascularization Status: Acute Category: Medical Code(s): I73.9 - Peripheral vascular disease, unspecified; Z98.890 - Other specified postprocedural states (9) Foot osteomyelitis, right Status: Acute Category: Medical Code(s): M86.9 - Osteomyelitis, unspecified (10) Gangrene of right foot Status: Acute Category: Medical Code(s): I96 - Gangrene, not elsewhere classified (11) Gas gangrene Status: Acute Category: Medical Code(s): A48.0 - Gas gangrene - Assessment and plan all Dx Assessment and Plan for all problems:: 66-year-old male with multiple mobilities. Presented w
[2022-02-12 08:28] LABS: Alanine Aminotransferase 40 U/L (12-78); Albumin Level 2.8 g/dl (3.5-5.0); Albumin/Globulin Ratio 0.9 (1.1-1.8); Alkaline Phosphatase 312 U/L (38-126); Anion Gap 10.8 mEq/L (5-15); Aspartate Amino Transferase 36 U/L (17-59); Blood Urea Nitrogen 42 mg/dl (9-20); Calcium 8.8 mg/dl (8.4-10.2); Carbon Dioxide 21 mmol/L (22.0-30.0); Chloride 112 mmol/L (98-107); Creatinine Clearance Estimated 38 mL/min (50-200); Estimated Glomerular Filt Rate 26 ml/min (>60); GFR (African American) 32 ML/MIN (>60); Glucose 110 mg/dl (74-100); Potassium 3.8 mmoL/L (3.5-5.1); Sodium 140 mmol/L (136-145); Total Protein,Serum 5.8 g/dl (6.3-8.2)
[2022-02-12 08:32] LABS: Bilirubin,Total < 0.1 mg/dl (0.2-1.3)
--- NOTE | 2022-02-12 09:27 | HMH.ACPN2 ---
Internal Medicine - PN: Subj *Date: 02/12/22 *Time: 09:27 Exam Vital signs and Labs for Last 24 Hours: Temp Pulse Resp BP Pulse Ox 98.1 F 77 18 152/76 H 100 02/12/22 07:25 02/12/22 07:25 02/12/22 07:25 02/12/22 07:25 02/12/22 07:25 Laboratory Results - last 24 hr 02/11/22 11:29: POC Glucose 139 H 02/11/22 16:13: POC Glucose 162 H 02/12/22 07:42: WBC 7.4, RBC 2.73 L, Hgb 8.0 L, Hct 24.5 L, MCV 89.6, MCH 29.4, MCHC 32.8, RDW 15.2, Plt Count 371, MPV 9.3, Neut % (Auto) 73.5, Lymph % (Auto) 18.0, [place] % (Auto) 5.2, Eos % (Auto) 2.5, Baso % (Auto) 0.9, Neut # (Auto) 5.4, Lymph # (Auto) 1.3, [place] # (Auto) 0.4, Eos # (Auto) 0.2, Baso # (Auto) 0.1 02/12/22 07:42: Sodium 140, Potassium 3.8, Chloride 112 H, Carbon Dioxide 21 L, Anion Gap 10.8, BUN 42 H, Creatinine 2.50 H, Estimated Creat Clear 38, Estimated GFR 26 L, Est GFR ( Amer) 32 L, Glucose 110 H, Calcium 8.8, Total Bilirubin < 0.1 L, AST 36, ALT 40, Alkaline Phosphatase 312 H, Total Protein 5.8 L, Albumin 2.8 L, Globulin 3.0, Albumin/Globulin Ratio 0.9 L I & O for Last 24 hours: Intake & Output 02/09/22 02/10/22 02/11/22 02/12/22 23:59 23:59 23:59 23:59 Intake Total 1717 / 1717 1001 / 1001 860 / 860 Output Total 575 / 575 1700 / 1700 950 / 950 775 / 775 Balance 1142 / 1142 -699 / -699 -90 / -90 -775 / -775 Weight 90.991 kg 91.989 kg 91.881 kg Microbiology Reports for the Last 24 Hours: Microbiology 02/09/22 11:00 Foot,Right Gram Stain - Final 02/09/22 11:00 Foot,Right Wound Culture - Preliminary Assessment and Plan (1) Anemia Status: Acute Qualifiers: Anemia type: iron deficiency Iron deficiency anemia type: chronic blood loss Qualified Code(s): D50.0 - Iron deficiency anemia secondary to blood loss (chronic) Category: Medical Code(s): D64.9 - Anemia, unspecified (2) Occult blood positive stool Status: Acute Category: Medical Code(s): R19.5 - Other fecal abnormalities (3) Partial traumatic amputation of right foot Status: Acute Qualifiers: Encounter type: initial encounter Qualified Code(s): S98.921A - Partial traumatic amputation of right foot, level unspecified, initial encounter Category: Medical Code(s): S98.921A - Partial traumatic amputation of right foot, level unspecified, initial encounter (4) Right foot infection Status: Acute Category: Medical Code(s): L08.9 - Local infection of the skin and subcutaneous tissue, unspecified (5) Diabetes Status: Acute Qualifiers: Category: Medical Code(s): E11.9 - Type 2 diabetes mellitus without complications (6) ETOH abuse Status: Acute Category: Social Hx Code(s): F10.10 - Alcohol abuse, uncomplicated (7) New onset type 2 diabetes mellitus Status: Acute Category: Medical Code(s): E11.9 - Type 2 diabetes mellitus without complications (8) Peripheral arterial disease with history of revascularization Status: Acute Category: Medical Code(s): I73.9 - Peripheral vascular disease, unspecified; Z98.890 - Other specified postprocedural states (9) Foot osteomyelitis, right Status: Acute Category: Medical Code(s): M86.9 - Osteomyelitis, unspecified (10) Gangrene of right foot Status: Acute Category: Medical Code(s): I96 - Gangrene, not elsewhere classified (11) Gas gangrene Status: Acute Category: Medical Code(s): A48.0 - Gas gangrene The patient's infection will respond to the chosen ABx?: Yes Is the patient receiving the right drug, dose, and route?: Yes Could a more targeted ABx be ordered?: No
[2022-02-12 11:35] LABS: POC Glucose,Bedside 131 (70-110)
--- NOTE | 2022-02-12 12:02 | HMH.ORTHPN ---
Subjective Date: 02/12/22 Time: 12:02 Principal diagnosis: Right foot gangrene Interval history: Resting comfortably. H&H stabilized at 8 after prior transfusion. In relatively good spirits today. PN: Obj Ex Vital signs: Temp Pulse Resp BP Pulse Ox 98.1 F 77 18 152/76 H 100 02/12/22 07:25 02/12/22 07:25 02/12/22 07:25 02/12/22 07:25 02/12/22 07:25 - Constitutional no acute distress - Routine HEENT Exam Head: Present: normocephalic Eye: Present: EOMI - Routine Neck Exam Present: supple - Routine Respiratory Exam Absent: accessory muscle use, respiratory distress - Routine Cardiovascular Exam Present: RRR - Routine Abdominal Exam Present: soft. Absent: distended - Detailed Lower Extremity Exam Foot/Toes: Right wound (right foot with extensive gangrenous changes, absent sensation to mid [place], nonpalpable DP/PT pulses) Progress Note: A&P (1) Anemia Status: Acute (2) Occult blood positive stool Status: Acute (3) Partial traumatic amputation of right foot Status: Acute (4) Right foot infection Status: Acute (5) Diabetes Status: Acute (6) ETOH abuse Status: Acute (7) New onset type 2 diabetes mellitus Status: Acute (8) Peripheral arterial disease with history of revascularization Status: Acute (9) Foot osteomyelitis, right Status: Acute (10) Gangrene of right foot Status: Acute (11) Gas gangrene Status: Acute Assessment and Plan for All Diagnoses:: 66-year-old male with extensive right foot gangrenous changes status post salvage attempt by Dr. Gonzales, revascularization. His wounds have progressed to where he has exposed midfoot bones from the talus medially to the cuboid laterally. I had a discussion with him regarding further management. At this point I do not believe the foot is salvageable. We discussed further wound care versus below-knee amputation. I counseled him that in order to control chronic infection and to hopefully allow him to ambulate in the future, I would recommend right below-knee amputation. He is amenable with the plan. We discussed the risk and benefits of surgery. Risks included but were not limited to pain, bleeding, infection, damage to adjacent structures, need for further surgery, resistant infection, wound healing complications, loss of limb, . Patient expressed verbal consent and written consent was obtained for the above procedure.
--- NOTE | 2022-02-12 15:04 | P.PN_ITS ---
[facility] Anesthesia Checklist - Patient Identification Patient Identification: Arm Band - Structural Data Admitted From: Inpatient Planned Operative Procedure/s: Right Below the Knee Amputation Consent for Planned Operative Procedure(s) Verified: Yes Verified Documents: Surgical Consent, History and Physical - NPO Status Verified Time NPO: 00:00 - Additional verifications Anesthesia Reactions: No - Airway Assessment C-Spine Mobility Assessed: Yes (mp2) TMJ Mobility Assessed: Yes Dentition: Poor Dentition - Neurological Assessment Level of Consciousness: Awake, Alert - Anesthesia Plan Anesthesia Risk discussed: Yes Anesthesia Plan: Verified ASA Class: III Anesthesia Type: General [facility] History I have reviewed the patient's past medical history: Yes Medical History: Reports:: Congestive Heart Failure, Diabetes Mellitus Type 2, Hypertension Denies:: Anxiety, Atherosclerotic Heart Disease, Diabetes Mellitus Type 1, Lung Disease, MRSA *Have you ever received a pneumonia vaccine?: No *Have you received a flu vaccine this season?: No Other Medical History: Reports: Other. Denies: Thyroid Disease Anesthesia experience/problems:: nac Other Surgeries: Yes: EGD, Other Amputation: Yes - *Social History Last grade of school completed: High school graduate Smoking Status: Former smoker Tobacco Type: cigarettes Alcohol Intake: former Alcohol Intake Frequency:: 3 or more drinks per day Substance Use Type: denies use *Occupational Status:: retired Housing: jail Household Members: none *Travel in the last 8 weeks: None - Psychiatric History Pschychiatric History:: Denies:: Anxiety Family Hx:: Cancer, Hyperlipidemia, Hypertension
--- NOTE | 2022-02-12 16:15 | P.PN_ITS ---
[facility] Anesthesia Record Part I Intake, IV Amount: 800 Estimated blood loss (mL): 30 Urine output (mL): 0 Blood Products used (#): none Blood Pressure: 135/86 SaO2: 97 Pulse Rate: 82 Respiratory Rate: 18 Temperature: 97.9 F Patient is:: Awake, Stable
--- NOTE | 2022-02-12 16:18 | XR_ITS ---
PROCEDURE INFORMATION: Exam: XR Right Knee Exam date and time: 02/12/2022 4:54 PM Age: 66 years old Clinical indication: Screening exam; Post op evaluation. Prior surgery; Surgery date: Post-operative (0-2 days); Surgery type: Knee surgery; Additional info: Postop TECHNIQUE: Imaging protocol: Radiologic exam of the Right knee. Views: 1 or 2 views. COMPARISON: US ARTERIAL LOWER EXT REST 01/08/2022 7:27 AM FINDINGS: Tubes, catheters and devices: Surgical drain in place in the stump region. Bones/joints: Amputation at the level of the mid calf. No acute fracture or dislocation. Soft tissues: Postoperative soft tissue swelling in the stump. Multiple skin erich seen distally. IMPRESSION: Postop lower leg amputation.
--- NOTE | 2022-02-12 16:32 | HMH.OPNOTE ---
Date of procedure: 02/12/22 Pre-op Diagnosis:: Right foot gangrene Post-op Diagnosis:: same Procedure performed:: 00448: Right below-knee amputation Surgeon:: Garrett Whitman JR, MD Breaker Operator(s):: Sasha Saxena PA-C FINGERPRINT EXPERT:: Elbert Nava Anesthesia: GETA Estimated blood loss (mL): 30 Clinical Note:: 56-year-old male who had undergone extensive attempted limb salvage under the care of Dr. Gonzales including multiple debridements, skin allograft placement. He underwent revascularization procedure. He is a poorly controlled, previously undiagnosed diabetic with peripheral vascular disease. Despite extensive attempts at wound salvage, he had necrotic tissue throughout most of his foot with exposed talus, navicular, plantar midfoot bones and lateral cuboid. I had a discussion with him regarding further management. Told him regarding further wound care, potential attempt at limb salvage, versus below-knee potation. Given the extensive gangrene of the foot, failed previous attempt at limb salvage, he preferred below-knee potation. I recommended right below-knee potation. He was amenable with the plan. We discussed the risk and benefits of surgery. Risks included but were not limited to pain, bleeding, infection, damage to adjacent structures, need for further surgery, wound healing complications, loss of limb, . Patient expressed verbal consent and written consent was obtained for the above procedure. Operative findings:: No purulence noted within the calf musculature. Skin edges were viable. Operative note:: Patient was identified in preoperative holding. Operative site was marked in indelible ink. History, physical, consent were reviewed and updated. Patient was surrendered to the anesthesia team, taken to the operative suite, placed supine on a well-padded operative table. Ipsilateral hip bump was placed as was a nonsterile thigh tourniquet. Anesthesia was induced. The operative extremity was prepped and draped in the usual sterile fashion. The operative team donned sterile gowns and gloves and a timeout was called. All in attendance agreed regarding the patient's identity, procedure, operative site. Weight-based dose of antibiotics was given prior to incision. Made a transverse incision roughly 12 cm distal to the tibial tubercle, made along the posterior skin flap, dissected through fascia, used Bovie electrocautery to transect the muscles of the anterior compartment. Identified the underlying vascular bundle, tied this with a free tie and stick tie. I then placed an [place] deep to the tibia, transected the tibia near the anterior skin cut. Protecting the neurovascular bundle I transected the fibula approximately 1 cm proximal to the tibial cut. I then was able to remove the foot. I sent this for pathology. Divide the posterior neurovascular bundle, tied the vessel and injected the nerve which was cut. I removed remaining deep posterior compartment musculature, then made a chamfer cut on the anterior aspect of the tibia to ensure no anterior tibial prominence. This point the tourniquet was taken down I achieved hemostasis. Then using a #2 FiberWire I placed a running locking stitch securing the gastrocnemius tendon to the anterior fascia. I placed a drain which exited superior laterally, secured this with a nylon suture. Wounds were closed in anatomic layers. Sterile dressings applied. Counts were correct x2. There were no apparent complications. I was present and scrubbed for the entire case. Tourniquet time (min): 26 Condition: stable Disposition: PACU Complications:: None apparent. Operatively, plan for nonweightbearing, knee immobilizer. Plan to leave drain at least 2 days, we will plan to remove once drainage is less than 30 mL per shift. Plan for follow-up in 2 weeks for wound check. Given his history of gangrene/osteomyelitis, I would anticipate he would benefit from greater than standard 2
[2022-02-12 16:39] LABS: POC Glucose,Bedside 122 (70-110)
--- NOTE | 2022-02-12 17:35 | SUR.PHASEI ---
1725 called and gave detailed report to gina Amaya/assistant at surgery 1730 transported via bed to med/surg room. vital signs stable. pt rates pain at a 10 and states no medication is giving him relief. pt appears to be resting comfortably and has received pain medication. see eMAR for details. pt stated he would also like to go to room already to see visitors as well and pt states that will help to see family. pt left in stable condition with gina Amaya/assistant at surgery at bedside.
--- NOTE | 2022-02-12 18:05 | SUR.PHASEI ---
LATE ENTRY 1633 BS obtained with result of Karen. Carolann Terrell CRNA notified. No new orders given at this time.
--- NOTE | 2022-02-12 18:19 | PC.NURSE ---
Patient returned from OR at 1735; A&O x4, pain scale 9/10 medication administered, family at bedside; VSS, diet reordered and delivered to room, shows no s/s of acute distress noted, call light within reach, bed at lowest level for safety; will continue to monitor.
[2022-02-12 21:06] LABS: POC Glucose,Bedside 234 (70-110)
[2022-02-13] VITALS (8 sets, daily range): BP systolic 131–166; BP diastolic 62–79; PULSE 69–79; RESP 16–18; TEMP 36.4–37.7; O2SAT 94–100; BMI 24.5
--- NOTE | 2022-02-13 04:02 | PC.NURSE ---
Pt is alert and oriented x4, pt has required pain medication around the clock, medicated prn per sep. Pt has Right BKA, dressing CDI, DM drain noted, 40mL out of DM drain at beginning of shift with some stringy, serosanguineous fluid. Pt lung sounds are clear, O2 sat >95% on room air. Pt has had no other complaints throughout shift. Pt bowel sounds are active. Pt is using urinal with 300mL out. Pt is ACHS FS, pt covered per protocol. Call light in reach and working.
[2022-02-13 05:15] LABS: POC Glucose,Bedside 177 (70-110)
[2022-02-13 07:07] LABS: Basophils % 0.3 % (0.1-2.0); Eosinophils # 0.1 K/mm3 (0.0-0.4); Eosinophils % 1.1 % (0.1-12.0); Hematocrit 22.7 % (42.0-52.0); Hemoglobin 7.5 g/dL (14.1-18.0); Lymphocytes # 1.1 K/mm3 (0.7-4.5); Lymphocytes % 9.5 % (10-50); Mean Corpuscular HGB Conc 33.2 g/dL (31.8-35.4); Mean Corpuscular Hemoglobin 29.3 pg (27.0-31.2); Mean Corpuscular Volume 88.2 fl (80-94); Mean Platelet Volume 9.2 fl (7.4-10.4); Monocytes # 0.6 K/mm3 (0.1-1.0); Monocytes % 4.9 % (1.7-9.3); Neutrophils # 9.7 K/mm3 (1.8-7.8); Neutrophils % 84.2 % (37.0-80.0); Platelet Count 348 K/mm3 (142-424); Red Blood Count 2.57 M/mm3 (4.60-6.20); Red Cell Distribution Width 15.3 % (11.5-17.5); White Blood Count 11.5 K/mm3 (4.8-10.8)
[2022-02-13 07:14] LABS: Chloride 110 mmol/L (98-107); Potassium 3.8 mmoL/L (3.5-5.1); Sodium 139 mmol/L (136-145)
[2022-02-13 07:17] LABS: Alanine Aminotransferase 42 U/L (12-78); Albumin Level 3.2 g/dl (3.5-5.0); Alkaline Phosphatase 274 U/L (38-126); Anion Gap 10.8 mEq/L (5-15); Aspartate Amino Transferase 44 U/L (17-59); Blood Urea Nitrogen 44 mg/dl (9-20); Carbon Dioxide 22 mmol/L (22.0-30.0); Creatinine Clearance Estimated 38 mL/min (50-200); Estimated Glomerular Filt Rate 26 ml/min (>60); GFR (African American) 32 ML/MIN (>60); Globulin 3.3 g/dL (1.3-3.2); Total Protein,Serum 6.5 g/dl (6.3-8.2)
[2022-02-13 07:18] LABS: Calcium 8.9 mg/dl (8.4-10.2); Glucose 146 mg/dl (74-100)
[2022-02-13 07:23] LABS: Bilirubin,Total < 0.1 mg/dl (0.2-1.3)
--- NOTE | 2022-02-13 07:53 | HMH.ORTHPN ---
Subjective Date: 02/13/22 Time: 07:53 Principal diagnosis: Right foot gangrene Interval history: Had some pain overnight but overall his pain was tolerable and he is doing well. Tolerating p.o. diet. No nausea, vomiting, diarrhea. PN: Obj Ex Vital signs: Temp Pulse Resp BP Pulse Ox 98.1 F 78 18 134/64 98 02/13/22 04:00 02/13/22 04:00 02/13/22 04:00 02/13/22 04:00 02/13/22 04:00 - Constitutional no acute distress - Routine HEENT Exam Head: Present: normocephalic Eye: Present: EOMI - Routine Neck Exam Present: supple - Routine Respiratory Exam Absent: accessory muscle use, respiratory distress - Routine Cardiovascular Exam Present: RRR - Routine Abdominal Exam Present: soft. Absent: distended - Detailed Lower Extremity Exam Lower leg: Right normal inspection (Right lower extremity surgical dressing in place clean, dry, intact. Drain with serosanguineous output.) Progress Note: A&P (1) Anemia Status: Acute (2) Occult blood positive stool Status: Acute (3) Partial traumatic amputation of right foot Status: Acute (4) Right foot infection Status: Acute (5) Diabetes Status: Acute (6) ETOH abuse Status: Acute (7) New onset type 2 diabetes mellitus Status: Acute (8) Peripheral arterial disease with history of revascularization Status: Acute (9) Foot osteomyelitis, right Status: Acute (10) Gangrene of right foot Status: Acute (11) Gas gangrene Status: Acute Assessment and Plan for All Diagnoses:: 66-year-old male status post right below-knee amputation February 12, 2022. Nonweightbearing right lower extremity. PT eval for left-sided transfers. Hg 7.5 this morning compared to 8 yesterday. Agree with transfusion if drops below 7. Agree with plan for outpatient IV antibiotics given his longstanding history of osteomyelitis. All infected tissue was theoretically removed, but I think this would potentially lower his risk of recurrent infection of the stump. When to leave drain until output is less than 30 mL per shift. Will follow.
--- NOTE | 2022-02-13 08:14 | HMH.GSPN ---
Subjective Patient reports: no new complaints Progress Note: A&P (1) Anemia Status: Acute Assessment and plan: Fairly stable with small decline in hemoglobin this morning. Today's change more likely secondary to mild operative loss and operative volume infusion. No definitive evidence of ongoing gastrointestinal hemorrhage. Consider small bowel follow-through during this hospitalization (depending on likely duration) as part of his ongoing evaluation for possible gastrointestinal source. (2) Occult blood positive stool Status: Acute (3) Partial traumatic amputation of right foot Status: Acute (4) Right foot infection Status: Acute (5) Diabetes Status: Acute (6) ETOH abuse Status: Acute (7) New onset type 2 diabetes mellitus Status: Acute (8) Peripheral arterial disease with history of revascularization Status: Acute (9) Foot osteomyelitis, right Status: Acute (10) Gangrene of right foot Status: Acute (11) Gas gangrene Status: Acute Exam Vital signs and Labs for Last 24 Hours: Temp Pulse Resp BP Pulse Ox 98.1 F 78 18 134/64 98 02/13/22 04:00 02/13/22 04:00 02/13/22 04:00 02/13/22 04:00 02/13/22 04:00 Laboratory Results - last 24 hr 02/12/22 07:42: Sodium 140, Potassium 3.8, Chloride 112 H, Carbon Dioxide 21 L, Anion Gap 10.8, BUN 42 H, Creatinine 2.50 H, Estimated Creat Clear 38, Estimated GFR 26 L, Est GFR ( Amer) 32 L, Glucose 110 H, Calcium 8.8, Total Bilirubin < 0.1 L, AST 36, ALT 40, Alkaline Phosphatase 312 H, Total Protein 5.8 L, Albumin 2.8 L, Globulin 3.0, Albumin/Globulin Ratio 0.9 L 02/12/22 11:28: POC Glucose 131 H 02/12/22 16:32: POC Glucose 122 H 02/12/22 20:12: POC Glucose 234 H 02/13/22 05:04: POC Glucose 177 H 02/13/22 06:55: WBC 11.5 H D, RBC 2.57 L, Hgb 7.5 L, Hct 22.7 L, MCV 88.2, MCH 29.3, MCHC 33.2, RDW 15.3, Plt Count 348, MPV 9.2, Neut % (Auto) 84.2 H, Lymph % (Auto) 9.5 L, [place] % (Auto) 4.9, Eos % (Auto) 1.1, Baso % (Auto) 0.3, Neut # (Auto) 9.7 H, Lymph # (Auto) 1.1, [place] # (Auto) 0.6, Eos # (Auto) 0.1, Baso # (Auto) 0.0 02/13/22 06:55: Sodium 139, Potassium 3.8, Chloride 110 H, Carbon Dioxide 22, Anion Gap 10.8, BUN 44 H, Creatinine 2.50 H, Estimated Creat Clear 38, Estimated GFR 26 L, Est GFR ( Amer) 32 L, Glucose 146 H D, Calcium 8.9, Total Bilirubin < 0.1 L, AST 44, ALT 42, Alkaline Phosphatase 274 H, Total Protein 6.5, Albumin 3.2 L D, Globulin 3.3 H, Albumin/Globulin Ratio 1.0 L I & O for Last 24 hours: Intake & Output 02/10/22 02/11/22 02/12/22 02/13/22 11:59 11:59 11:59 11:59 Intake Total 1371 / 1371 460 / 460 640 / 640 1710 / 1710 Output Total 875 / 875 1400 / 1400 2125 / 2125 1260 / 1260 Balance 496 / 496 -940 / -940 -1485 / -1485 450 / 450 Weight 200 lb 9.613 oz 202 lb 12.8 oz 202 lb 9 oz 202 lb Microbiology Reports for the Last 24 Hours: Microbiology 02/09/22 11:00 Foot,Right Gram Stain - Final 02/09/22 11:00 Foot,Right Wound Culture - Final Acinetobacter baumannii MDR - Constitutional no acute distress - *Routine Respiratory Exam Absent: respiratory distress - *Routine Cardiovascular Exam Absent: tachycardia
--- NOTE | 2022-02-13 08:36 | HMH.ACPN2 ---
Internal Medicine - PN: Subj *Date: 02/13/22 *Time: 08:36 Interval history: Patient did well overnight postoperatively. Has had expected pain but does not seem like this is out of proportion to what he would have expected. Has been otherwise comfortable from a cardiopulmonary standpoint Orthopedic and general surgery notes reviewed. Exam Vital signs and Labs for Last 24 Hours: Temp Pulse Resp BP Pulse Ox 98.1 F 78 18 134/64 98 02/13/22 04:00 02/13/22 04:00 02/13/22 04:00 02/13/22 04:00 02/13/22 04:00 Laboratory Results - last 24 hr 02/12/22 11:28: POC Glucose 131 H 02/12/22 16:32: POC Glucose 122 H 02/12/22 20:12: POC Glucose 234 H 02/13/22 05:04: POC Glucose 177 H 02/13/22 06:55: WBC 11.5 H D, RBC 2.57 L, Hgb 7.5 L, Hct 22.7 L, MCV 88.2, MCH 29.3, MCHC 33.2, RDW 15.3, Plt Count 348, MPV 9.2, Neut % (Auto) 84.2 H, Lymph % (Auto) 9.5 L, [place] % (Auto) 4.9, Eos % (Auto) 1.1, Baso % (Auto) 0.3, Neut # (Auto) 9.7 H, Lymph # (Auto) 1.1, [place] # (Auto) 0.6, Eos # (Auto) 0.1, Baso # (Auto) 0.0 02/13/22 06:55: Sodium 139, Potassium 3.8, Chloride 110 H, Carbon Dioxide 22, Anion Gap 10.8, BUN 44 H, Creatinine 2.50 H, Estimated Creat Clear 38, Estimated GFR 26 L, Est GFR ( Amer) 32 L, Glucose 146 H D, Calcium 8.9, Total Bilirubin < 0.1 L, AST 44, ALT 42, Alkaline Phosphatase 274 H, Total Protein 6.5, Albumin 3.2 L D, Globulin 3.3 H, Albumin/Globulin Ratio 1.0 L I & O for Last 24 hours: Intake & Output 08/07/22 08/08/22 08/09/22 08/10/22 11:59 11:59 11:59 11:59 Intake Total 1371 / 1371 460 / 460 640 / 640 1710 / 1710 Output Total 875 / 875 1400 / 1400 2125 / 2125 1260 / 1260 Balance 496 / 496 -940 / -940 -1485 / -1485 450 / 450 Weight 200 lb 9.613 oz 202 lb 12.8 oz 202 lb 9 oz 202 lb Microbiology Reports for the Last 24 Hours: Microbiology 02/09/22 11:00 Foot,Right Gram Stain - Final 02/09/22 11:00 Foot,Right Wound Culture - Final Acinetobacter baumannii MDR Narrative: Good air movement. Heart rate regular. Abdomen soft. Oropharynx clear. Stump/extremity exam per orthopedics. Assessment and Plan (1) Anemia Status: Acute Qualifiers: Anemia type: iron deficiency Iron deficiency anemia type: chronic blood loss Qualified Code(s): D50.0 - Iron deficiency anemia secondary to blood loss (chronic) Category: Medical Code(s): D64.9 - Anemia, unspecified (2) Occult blood positive stool Status: Acute Category: Medical Code(s): R19.5 - Other fecal abnormalities (3) Partial traumatic amputation of right foot Status: Acute Qualifiers: Encounter type: initial encounter Qualified Code(s): S98.921A - Partial traumatic amputation of right foot, level unspecified, initial encounter Category: Medical Code(s): S98.921A - Partial traumatic amputation of right foot, level unspecified, initial encounter (4) Right foot infection Status: Acute Category: Medical Code(s): L08.9 - Local infection of the skin and subcutaneous tissue, unspecified (5) Diabetes Status: Acute Qualifiers: Category: Medical Code(s): E11.9 - Type 2 diabetes mellitus without complications (6) ETOH abuse Status: Acute Category: Social Hx Code(s): F10.10 - Alcohol abuse, uncomplicated (7) New onset type 2 diabetes mellitus Status: Acute Category: Medical Code(s): E11.9 - Type 2 diabetes mellitus without complications (8) Peripheral arterial disease with history of revascularization Status: Acute Category: Medical Code(s): I73.9 - Peripheral vascular disease, unspecified; Z98.890 - Other specified postprocedural states (9) Foot osteomyelitis, right Status: Acute Category: Medical Code(s): M86.9 - Osteomyelitis, unspecified (10) Gangrene of right foot Status: Acute Category: Medical Code(s): I96 - Gangrene, not elsewhere classified (11) Gas gangrene Status: Acute Category: Medical Code(s): A48.0 - G
--- NOTE | 2022-02-13 10:08 | HMH.OTEV ---
OT Inpatient Evaluation Rehab OT IP Evaluation Start: 02/13/22 08:30 Freq: ONCE Status: Complete Protocol: Document 02/13/22 10:03 MATTMALI (Rec: 02/13/22 10:08 LEONOR [id number]) Rehab OT IP Assessment Subjective History 56-year-old male who had undergone extensive attempted limb salvage under the care of Dr. Gonzales including multiple debridements, skin allograft placement. He underwent revascularization procedure. He is a poorly controlled, previously undiagnosed diabetic with peripheral vascular disease. Despite extensive attempts at wound salvage, he had necrotic tissue throughout most of his foot with exposed talus, navicular, plantar midfoot bones and lateral cuboid. I had a discussion with him regarding further management. Told him regarding further wound care, potential attempt at limb salvage, versus below- knee potation. Given the extensive gangrene of the foot , failed previous attempt at limb salvage, he preferred below-knee potation. I recommended right below-knee potation. Prior to surgery. Patient was a resident at [facility] for rehabilitation for amputee of partial lower extremity. Patient was independent with ADLs and fx'l mobility prior to surgery. Patient [facility]. Subjective I can get up. Instructed Patient on safety awareness to complete bed mobility of supine->sit @ EOB- >squat pivot transfer to w/c-> EOB->supine requiring SUP. Patient demonstrat
--- NOTE | 2022-02-13 12:10 | HMH.PTEV ---
Physical Therapy Evaluation Rehab PT IP Evaluation Start: 02/13/22 07:52 Freq: ONCE Status: Active Protocol: Document 02/13/22 12:08 ALISSA (Rec: 02/13/22 12:10 ALISSA [id number]) Subjective/History History History Pt admitted to [facility] thru ED for osteomylitis in R foot. Pt admitted to floor s/p R BKA Subjective Subjective Pt reports feeling weird w/ out R lower leg Rehab PT IP Eval Objective Appearance Patient Behavior Cooperative Patient Orientation Person,Place,Situation Difficulty following instructions none Speech Pattern Appropriate Ambulation Patient Able to Ambulate No Balance Ability to Arise Able, uses arms to help Sitting Balance Steady, safe Standing Balance Unsteady Dynamic Sitting Balance Ability Normal Dynamic Standing Balance Ability Fair Transfers Bed Transfer Ability Independent Chair Transfer Ability Independent Sit to Stand Bed Transfer Ability Supervision/Stand by,Contact Guard/Hand Hold Sit to Stand Chair Transfer Ability Supervision/Stand by,Contact Guard/Hand Hold Rehab PT IP prob,goals,plan Problems Date of Evaluation: 02/13/22 PT IP Problems Transfers,Gait,Balance,Self care,Safety Rehab Potential Rehab Potential Good Equipment Needs Assistive Devices Rolling / Wheeled Walker, Forearm Crutches,Wheelchair Plan PT Intervention Plan Transfers,Gait,Balance,Self care,Safety,Therapeutic Exercise PT Plan Frequency BID Duration LOS Discharge Goals Bed Transfer Ability Independent Sit to Stand Chair Transfer Ability Contact Guard/Hand Hold Ambulation Assistive Device Rolling Walker,Axillary Crutches Discharge Plan PT Discharge Plan Pt to return to SNF for rehab to allow improved LOF and RAMON G -code Required No Eval Complexity Eval Charge Codes 84183 - Moderate Complexity PHYSICIAN CERTIFICATION: I certify the specified therapy services for Can Hernandez CARLOS are required, authorized, and reviewed every 30 days.
--- NOTE | 2022-02-13 12:44 | HMH.ANESII ---
[facility] Anesthesia Record Part II Discharge Time: 17:30 Destination: Medical Surgical Department PACU nurse assessment reviewed?: Yes Patient Condition:: Good Anesthesia Complications:: None Swallowing reflex intact?: Yes Cyanosis?: No Blood Pressure: 148/73 Pulse Rate: 71 Temperature: 97.9 F Mental Status: Alert & Oriented Pain level:: 10 Nausea and/or vomitting:: None Intake, IV Amount: 0
--- NOTE | 2022-02-13 13:56 | DIET.NUTRFU ---
RD saw patient to review meal intake, his meal intake has improved to consistency around 75% of meals plus 100% glucerna ordered for extra protein to promote healing. Son has been bringing in fast food almost for all meals, this is what patient prefers to eat. Patient is diabetic and receiving a diabetic diet, he has laos received education and handouts earlier this admit. RD questioned if he is watching his carb intake from the meals his son is bringing and he replied he is limiting the amount of fries and bun he consumes and it is always a diet soda. He feels his BS have been fairly well controlled at mostly below 150 with insulin and januvia tx. He was no on insulin previously and was discharged to a rehab facility. Not sure of discharge plans but if he discharges home he will need teaching. This RD did encourage to continue the glucerna once discharge for extra protein to promote healing.
--- NOTE | 2022-02-13 15:13 | PC.NURSE ---
PT IS RESTING IN BED. MEDICATED PER MAR FOR DISCOMFORT. EATING AND DRINKING WELL. ATTEMPTED TO PLACE IMMOBILIZER ON PT AND PT STATED IT WAS WAY TOO LONG AND WAS GOING TO BE VERY UNCOMFORTABLE. NOTIFIED [facility]ERIALS TO SEE IF THEY HAD A SHORTER IMMOBILIZER AND THEY STATED THE SIZE THAT WAS BROUGHT IS THE SHORTEST THE HOSPITAL HAS. DRESSING TO THE BKA C/D/I WITH DM DRAIN IN PLACE. LUNG SOUNDS CLEAR. ABDOMEN SOFT/NON TENDER WITH ACTIVE BOWEL SOUNDS. WILL CONTINUE TO MONITOR.
[2022-02-14] VITALS (15 sets, daily range): BP systolic 136–167; BP diastolic 50–79; PULSE 68–84; RESP 16–18; TEMP 36.6–37.1; O2SAT 92–98; BMI 24.5
--- NOTE | 2022-02-14 04:28 | PC.NURSE ---
Pt is alert and oriented x4, pt has rested throughout the night. Pt has complaints of pain 2 times, treated prn per sep. BKA noted the right leg, dressing CDI, DM noted and draining. Pt is receiving an antibiotic this shift, PICC noted to left upper arm. Pt lung sounds clear, abdomen soft, nontender, active bowel sounds. Call light in reach and working.
[2022-02-14 05:32] LABS: POC Glucose,Bedside 170 (70-110)
[2022-02-14 05:32] LABS: POC Glucose,Bedside 193 (70-110)
--- NOTE | 2022-02-14 06:53 | HMH.GSPN ---
Subjective Narrative: Having some postoperative pain but otherwise feel(s) okay . Progress Note: A&P (1) Anemia Status: Acute Assessment and plan: Follow-up morning labs Small bowel follow-through can be completed during inpatient stay if deemed appropriate per primary service. Otherwise, this can be accomplished in the outpatient setting in the near future. Further evaluation in the outpatient setting (capsule endoscopy, colonoscopy, etc.) warranted once he has sufficiently recovered from recent amputation. (2) Occult blood positive stool Status: Acute (3) Partial traumatic amputation of right foot Status: Acute (4) Right foot infection Status: Acute (5) Diabetes Status: Acute (6) ETOH abuse Status: Acute (7) New onset type 2 diabetes mellitus Status: Acute (8) Peripheral arterial disease with history of revascularization Status: Acute (9) Foot osteomyelitis, right Status: Acute (10) Gangrene of right foot Status: Acute (11) Gas gangrene Status: Acute Exam Vital signs and Labs for Last 24 Hours: Temp Pulse Resp BP Pulse Ox 98.1 F 68 17 143/72 H 92 L 02/14/22 04:00 02/14/22 04:00 02/14/22 04:00 02/14/22 04:00 02/14/22 04:00 Laboratory Results - last 24 hr 02/13/22 06:55: WBC 11.5 H D, RBC 2.57 L, Hgb 7.5 L, Hct 22.7 L, MCV 88.2, MCH 29.3, MCHC 33.2, RDW 15.3, Plt Count 348, MPV 9.2, Neut % (Auto) 84.2 H, Lymph % (Auto) 9.5 L, [place] % (Auto) 4.9, Eos % (Auto) 1.1, Baso % (Auto) 0.3, Neut # (Auto) 9.7 H, Lymph # (Auto) 1.1, [place] # (Auto) 0.6, Eos # (Auto) 0.1, Baso # (Auto) 0.0 02/13/22 06:55: Sodium 139, Potassium 3.8, Chloride 110 H, Carbon Dioxide 22, Anion Gap 10.8, BUN 44 H, Creatinine 2.50 H, Estimated Creat Clear 38, Estimated GFR 26 L, Est GFR ( Amer) 32 L, Glucose 146 H D, Calcium 8.9, Total Bilirubin < 0.1 L, AST 44, ALT 42, Alkaline Phosphatase 274 H, Total Protein 6.5, Albumin 3.2 L D, Globulin 3.3 H, Albumin/Globulin Ratio 1.0 L 02/13/22 11:32: POC Glucose 170 H 02/13/22 16:09: POC Glucose 193 H I & O for Last 24 hours: Intake & Output 02/11/22 02/12/22 02/13/22 02/14/22 11:59 11:59 11:59 11:59 Intake Total 460 / 460 640 / 640 2190 / 2190 680 / 680 Output Total 1400 / 1400 2125 / 2125 1260 / 1260 315 / 315 Balance -940 / -940 -1485 / -1485 930 / 930 365 / 365 Weight 202 lb 12.8 oz 202 lb 9 oz 202 lb 202 lb 0.012 oz Microbiology Reports for the Last 24 Hours: Microbiology 02/08/22 20:31 Blood - Random Blood Culture - Final NO GROWTH AFTER 5 DAYS 02/08/22 20:31 Blood - Random Blood Culture - Final NO GROWTH AFTER 5 DAYS 02/09/22 11:00 Foot,Right Gram Stain - Final 02/09/22 11:00 Foot,Right Wound Culture - Final Acinetobacter baumannii MDR - Constitutional no acute distress - *Routine Respiratory Exam Absent: respiratory distress - *Routine Cardiovascular Exam Absent: tachycardia
[2022-02-14 07:01] LABS: Basophils % 0.6 % (0.1-2.0); Eosinophils # 0.2 K/mm3 (0.0-0.4); Eosinophils % 2.6 % (0.1-12.0); Lymphocytes # 1.3 K/mm3 (0.7-4.5); Lymphocytes % 17.5 % (10-50); Mean Corpuscular HGB Conc 31.6 g/dL (31.8-35.4); Mean Corpuscular Hemoglobin 28.9 pg (27.0-31.2); Mean Corpuscular Volume 91.6 fl (80-94); Mean Platelet Volume 9.2 fl (7.4-10.4); Monocytes # 0.6 K/mm3 (0.1-1.0); Monocytes % 7.9 % (1.7-9.3); Neutrophils # 5.3 K/mm3 (1.8-7.8); Neutrophils % 71.5 % (37.0-80.0); Platelet Count 308 K/mm3 (142-424); Red Blood Count 2.38 M/mm3 (4.60-6.20); Red Cell Distribution Width 15.4 % (11.5-17.5); White Blood Count 7.4 K/mm3 (4.8-10.8)
[2022-02-14 07:11] LABS: Chloride 111 mmol/L (98-107); Sodium 138 mmol/L (136-145)
[2022-02-14 07:12] LABS: Potassium 3.7 mmoL/L (3.5-5.1)
[2022-02-14 07:14] LABS: Blood Urea Nitrogen 44 mg/dl (9-20); Creatinine Clearance Estimated 38 mL/min (50-200); Estimated Glomerular Filt Rate 26 ml/min (>60); GFR (African American) 32 ML/MIN (>60)
[2022-02-14 07:15] LABS: Calcium 8.7 mg/dl (8.4-10.2); Carbon Dioxide 22 mmol/L (22.0-30.0); Glucose 106 mg/dl (74-100)
[2022-02-14 07:25] LABS: Anion Gap 8.7 mEq/L (5-15)
[2022-02-14 07:29] LABS: Hematocrit 22.3 % (42.0-52.0); Hemoglobin 7.1 g/dL (14.1-18.0)
--- NOTE | 2022-02-14 08:38 | HMH.ACPN2 ---
Internal Medicine - PN: Subj *Date: 02/14/22 *Time: 08:38 Interval history: Patient is comfortable, slept well overnight. Discussed case with orthopedic service. Drain still in. Plan to pull later today or tomorrow. Exam Vital signs and Labs for Last 24 Hours: Temp Pulse Resp BP Pulse Ox 98.1 F 68 17 143/72 H 92 L 02/14/22 04:00 02/14/22 04:00 02/14/22 04:00 02/14/22 04:00 02/14/22 04:00 Laboratory Results - last 24 hr 02/13/22 11:32: POC Glucose 170 H 02/13/22 16:09: POC Glucose 193 H 02/14/22 06:11: WBC 7.4 D, RBC 2.38 L, Hgb 7.1 L, Hct 22.3 L, MCV 91.6, MCH 28.9, MCHC 31.6 L, RDW 15.4, Plt Count 308, MPV 9.2, Neut % (Auto) 71.5, Lymph % (Auto) 17.5, [place] % (Auto) 7.9, Eos % (Auto) 2.6, Baso % (Auto) 0.6, Neut # (Auto) 5.3, Lymph # (Auto) 1.3, [place] # (Auto) 0.6, Eos # (Auto) 0.2, Baso # (Auto) 0.0 02/14/22 06:11: Sodium 138, Potassium 3.7, Chloride 111 H, Carbon Dioxide 22, Anion Gap 8.7, BUN 44 H, Creatinine 2.50 H, Estimated Creat Clear 38, Estimated GFR 26 L, Est GFR ( Amer) 32 L, Glucose 106 H D, Calcium 8.7 I & O for Last 24 hours: Intake & Output 02/11/22 02/12/22 02/13/22 02/14/22 11:59 11:59 11:59 11:59 Intake Total 460 / 460 640 / 640 2190 / 2190 680 / 680 Output Total 1400 / 1400 2125 / 2125 1260 / 1260 315 / 315 Balance -940 / -940 -1485 / -1485 930 / 930 365 / 365 Weight 202 lb 12.8 oz 202 lb 9 oz 202 lb 202 lb 0.012 oz Microbiology Reports for the Last 24 Hours: Microbiology 02/08/22 20:31 Blood - Random Blood Culture - Final NO GROWTH AFTER 5 DAYS 02/08/22 20:31 Blood - Random Blood Culture - Final NO GROWTH AFTER 5 DAYS 02/09/22 11:00 Foot,Right Gram Stain - Final 02/09/22 11:00 Foot,Right Wound Culture - Final Acinetobacter baumannii MDR Narrative: Patient is pleasant, alert, talkative, scattered smokers rhonchi in his lungs. Heart rate regular. Abdomen soft, extremity exam per orthopedics. Assessment and Plan (1) Anemia Status: Acute Qualifiers: Anemia type: iron deficiency Iron deficiency anemia type: chronic blood loss Qualified Code(s): D50.0 - Iron deficiency anemia secondary to blood loss (chronic) Category: Medical Code(s): D64.9 - Anemia, unspecified (2) Occult blood positive stool Status: Acute Category: Medical Code(s): R19.5 - Other fecal abnormalities (3) Partial traumatic amputation of right foot Status: Acute Qualifiers: Encounter type: initial encounter Qualified Code(s): S98.921A - Partial traumatic amputation of right foot, level unspecified, initial encounter Category: Medical Code(s): S98.921A - Partial traumatic amputation of right foot, level unspecified, initial encounter (4) Right foot infection Status: Acute Category: Medical Code(s): L08.9 - Local infection of the skin and subcutaneous tissue, unspecified (5) Diabetes Status: Acute Qualifiers: Category: Medical Code(s): E11.9 - Type 2 diabetes mellitus without complications (6) ETOH abuse Status: Acute Category: Social Hx Code(s): F10.10 - Alcohol abuse, uncomplicated (7) New onset type 2 diabetes mellitus Status: Acute Category: Medical Code(s): E11.9 - Type 2 diabetes mellitus without complications (8) Peripheral arterial disease with history of revascularization Status: Acute Category: Medical Code(s): I73.9 - Peripheral vascular disease, unspecified; Z98.890 - Other specified postprocedural states (9) Foot osteomyelitis, right Status: Acute Category: Medical Code(s): M86.9 - Osteomyelitis, unspecified (10) Gangrene of right foot Status: Acute Category: Medical Code(s): I96 - Gangrene, not elsewhere classified (11) Gas gangrene Status: Acute Category: Medical Code(s): A48.0 - Gas gangrene - Assessment and plan all Dx Assessment and Plan for all problems:: Ane
--- NOTE | 2022-02-14 09:24 | HMH.ORTHPN ---
Subjective Date: 02/14/22 Time: 08:30 Principal diagnosis: Right foot gangrene Interval history: Mr. Hernandez is a 66-year-old male patient admitted to the inpatient service following an uneventful right BKA performed by Dr. Whitman 02/12/2022. Today he is postop day #2. This morning the patient is lying comfortably in bed. He reports pain in his residual right limb as to be expected at this stage. He reports that he is eating and drinking well denies any episodes of nausea or vomiting. No history of any fevers, chills, or rigors. He reports that he was evaluated by physical therapy yesterday, but has not ambulated/transferred. He denies any other symptoms or concerns at this time. PN: Obj Ex Vital signs: Temp Pulse Resp BP Pulse Ox 98.1 F 68 17 143/72 H 92 L 02/14/22 04:00 02/14/22 04:00 02/14/22 04:00 02/14/22 04:00 02/14/22 04:00 - Constitutional no acute distress, cooperative - Routine HEENT Exam Head: Present: normocephalic, atraumatic Eye: Present: EOMI, PERRL ENT: Present: mucous membranes moist - Routine Neck Exam Present: supple, full ROM, trachea midline. Absent: JVD, lymphadenopathy - Routine Respiratory Exam Absent: accessory muscle use, respiratory distress Comments: Symmetric chest movement, able to speak in complete sentences - Routine Cardiovascular Exam Present: RRR Comments: Normal peripheral pulses - Routine Abdominal Exam Present: soft. Absent: tenderness - Routine Extremities Exam Comments: Upon examination of the right residual limb: Dressings present over the right residual limb are clean, dry, and intact. No evidence of drainage or bleeding noted. There is a surgical drain in place with a scant amount of serosanguineous drainage present this morning. Thigh and leg compartments are soft and nontender; no clinical evidence of DVT noted. - Routine Skin Exam Present: intact, warm, normal turgor. Absent: cyanosis, erythema, lesions, jaundice - Routine Neurological Exam Present: alert, oriented X3, CN II-XII intact, moving all extremities, normal tone, normal speech. Absent: motor deficit, altered mental status - Routine Psychiatric Exam Present: normal affect, cooperative Progress Note: A&P (1) Anemia Status: Acute (2) Occult blood positive stool Status: Acute (3) Partial traumatic amputation of right foot Status: Acute (4) Right foot infection Status: Acute (5) Diabetes Status: Acute (6) ETOH abuse Status: Acute (7) New onset type 2 diabetes mellitus Status: Acute (8) Peripheral arterial disease with history of revascularization Status: Acute (9) Foot osteomyelitis, right Status: Acute (10) Gangrene of right foot Status: Acute (11) Gas gangrene Status: Acute Assessment and Plan for All Diagnoses:: I have discussed the clinical findings and progress with the patient. Overall he is doing well from orthopedic standpoint this morning. Surgical drain remains in place and has a scant amount of serosanguineous output this morning; plan to remove drain later today or likely tomorrow morning if output remains less than 30 mL per shift. Continue PT/OT evaluation for left-sided transfers; remain nonweightbearing on the right residual lower extremity. Continue outpatient IV antibiotics given patient's longstanding history of osteomyelitis. Continue rest, ice, and pain medication as needed. Case management team coordinating discharge planning; awaiting precertification for patient to return to [facility]. Continue medical management as per Dr. Knutson.
[2022-02-14 09:41] LABS: Vancomycin,Trough 21.6 ug/mL (5.0-10.0)
--- NOTE | 2022-02-14 10:09 | PC.NURSE ---
Patient wanted tray cleaned off so I helped him do that. Patient had no other requests at this time. Leatha Rebolledo SRNA
--- NOTE | 2022-02-14 10:25 | HMH.PHACONS ---
- Pharmacy Consult Date: 02/14/22 Time: 10:25 Referring provider: DR. BENTLEY Reason for Consult:: VANCOMYCIN TROUGH LEVEL AND DOSE CHANGE Allergies and ADEs:: Allergies Allergy/AdvReac Type Severity Reaction Status Date / Time Penicillins Allergy Unknown Unknown Verified 01/22/22 11:27 allergy reaction Home Medications:: Home Medications Medication Instructions Recorded Confirmed Type Acetaminophen [Tylenol 500mg 1,000 mg PO Q6HP PRN tab 01/17/22 02/08/22 Rx tablet] Hydrocod/Acet 5/325 mg [Paradox 1 tab PO Q4HP PRN #30 tab 01/17/22 02/08/22 Rx 5/325mg tablet] Amlodipine Besylate [Norvasc 5mg 5 mg PO DAILY 01/25/22 02/08/22 History tablet] Aspirin [Aspirin 81mg chewable 81 mg PO DAILY 01/25/22 02/08/22 History tab] Atorvastatin Calcium [Lipitor 40mg 80 mg PO HS 01/25/22 02/08/22 History Tablet*] Clopidogrel Bisulfate [Plavix 75mg 75 mg PO DAILY 01/25/22 02/08/22 History Tab] Rivaroxaban [Xarelto 2.5mg Tab*] 2.5 mg PO BIDWMEAL 01/25/22 02/08/22 History Sitagliptin Phosphate [Januvia 25 mg PO DAILYDM 01/25/22 02/08/22 History 50mg Tablet] bisoproloL fumarate [Zebeta 5mg 5 mg PO DAILY 01/25/22 02/08/22 History tablet] Ascorbate Calcium [Vitamin C] 500 mg PO DAILY 02/08/22 02/08/22 History Cholecalciferol (Vitamin D3) 2,000 unit PO DAILY 02/08/22 02/08/22 History [Vitamin D3 1,000 Unit Cap] Multivitamin [Multi-Vitamin Plain] 1 each PO DAILY 02/08/22 02/08/22 History Zinc Sulfate [Zinc Sulfate 220mg 220 mg PO DAILY 02/08/22 02/08/22 History capsule] Vancomycin/Water For Inj (Peg) 1.75 gm IV Q72H 02/09/22 02/09/22 History [Vancomycin 1.75 gm/350 ml Bag] Height: 1.93 m Weight: 91.626 kg Laboratory Results:: Laboratory Results - last 24 hr 02/13/22 11:32: POC Glucose 170 H 02/13/22 16:09: POC Glucose 193 H 02/14/22 06:11: WBC 7.4 D, RBC 2.38 L, Hgb 7.1 L, Hct 22.3 L, MCV 91.6, MCH 28.9, MCHC 31.6 L, RDW 15.4, Plt Count 308, MPV 9.2, Neut % (Auto) 71.5, Lymph % (Auto) 17.5, [place] % (Auto) 7.9, Eos % (Auto) 2.6, Baso % (Auto) 0.6, Neut # (Auto) 5.3, Lymph # (Auto) 1.3, [place] # (Auto) 0.6, Eos # (Auto) 0.2, Baso # (Auto) 0.0 02/14/22 06:11: Sodium 138, Potassium 3.7, Chloride 111 H, Carbon Dioxide 22, Anion Gap 8.7, BUN 44 H, Creatinine 2.50 H, Estimated Creat Clear 38, Estimated GFR 26 L, Est GFR ( Amer) 32 L, Glucose 106 H D, Calcium 8.7 02/14/22 08:38: Blood Type O Positive, Antibody Screen Negative, Crossmatch (AHG) See Detail 02/14/22 09:00: Vancomycin Trough 21.6 H Medical History: Reports:: Congestive Heart Failure, Diabetes Mellitus Type 2, Hypertension Denies:: Anxiety, Atherosclerotic Heart Disease, Diabetes Mellitus Type 1, Lung Disease, MRSA Assessment and Plan (1) Anemia Status: Acute Qualifiers: Anemia type: iron deficiency Iron deficiency anemia type: chronic blood loss Qualified Code(s): D50.0 - Iron deficiency anemia secondary to blood loss (chronic) Category: Medical Code(s): D64.9 - Anemia, unspecified (2) Occult blood positive stool Status: Acute Category: Medical Code(s): R19.5 - Other fecal abnormalities (3) Partial traumatic amputation of right foot Status: Acute Qualifiers: Encounter type: initial encounter Qualified Code(s): S98.921A - Partial traumatic amputation of right foot, level unspecified, initial encounter Category: Medical Code(s): S98.921A - Partial traumatic amputation of right foot, level unspecified, initial encounter (4) Right foot infection Status: Acute Category: Medical Code(s): L08.9 - Local infection of the skin and subcutaneous tissue, unspecified (5) Diabetes Status: Acute Qualifiers: Category: Medical Code(s): E11.9 - Type 2 diabetes mellitus without complications (6) ETOH abuse Status: Acute Category: Social Hx Code(s): F10.10 - Alcohol abuse, uncomplicated (7) New onset type 2 diabetes mellitus Status: Acute Category: Medical
--- NOTE | 2022-02-14 11:45 | PC.NURSE ---
Addendum entered by Ivet Rosenberg RN 02/14/22 12:09: Discussed PICC line viability with infusion/PICC line nurses. Ok to proceed with transfusion. Addendum entered by Ivet Rosenberg RN 02/14/22 11:56: waiting for return call from provider Original Note: Returned blood to lab due to PICC line not usable at this time. 2 attempts for peripheral IV unsuccessful.
--- NOTE | 2022-02-14 15:05 | PC.NURSE ---
late entry. rounded on patient. noted picc wouldn't draw. did attempt iv stick as a back up while getting blood and was unsuccessful but patient preferred to not be stuck again. had been tolerating meals well. didn't have any concerns or questions noted. encouraged him to ring out as needed
[2022-02-14 17:34] LABS: Hematocrit 26.5 % (42.0-52.0)
[2022-02-14 17:57] LABS: POC Glucose,Bedside 135 (70-110)
[2022-02-14 17:57] LABS: POC Glucose,Bedside 126 (70-110)
[2022-02-14 18:08] LABS: Hemoglobin 8.8 g/dL (14.1-18.0)
--- NOTE | 2022-02-14 19:40 | PC.NURSE ---
patient received 1 unit of blood today, tolerated well, DM drain has been pulled and pre-auth for [facility] is still pending. VSS, shows no s/s of acute distress noted, call light in reach, bed at lowest level for safety; will continue to monitor.
[2022-02-15] VITALS: BP 144/67; PULSE 80; RESP 16; TEMP 36.7; O2SAT 97
[2022-02-15 04:00] VITALS: BP 136/68; PULSE 72; RESP 17; TEMP 36.6; O2SAT 96
[2022-02-15 04:43] VITALS: BMI 24.5
[2022-02-15 06:18] LABS: Basophils % 0.6 % (0.1-2.0); Eosinophils # 0.2 K/mm3 (0.0-0.4); Eosinophils % 2.3 % (0.1-12.0); Hematocrit 24.5 % (42.0-52.0); Lymphocytes # 1.2 K/mm3 (0.7-4.5); Lymphocytes % 16.1 % (10-50); Mean Corpuscular HGB Conc 32.8 g/dL (31.8-35.4); Mean Corpuscular Volume 88.6 fl (80-94); Mean Platelet Volume 9.6 fl (7.4-10.4); Monocytes # 0.6 K/mm3 (0.1-1.0); Monocytes % 7.5 % (1.7-9.3); Neutrophils # 5.5 K/mm3 (1.8-7.8); Neutrophils % 73.5 % (37.0-80.0); Platelet Count 306 K/mm3 (142-424); Red Blood Count 2.77 M/mm3 (4.60-6.20); Red Cell Distribution Width 15.3 % (11.5-17.5); White Blood Count 7.4 K/mm3 (4.8-10.8)
[2022-02-15 06:24] LABS: Potassium 3.9 mmoL/L (3.5-5.1); Sodium 138 mmol/L (136-145)
[2022-02-15 06:25] LABS: Chloride 112 mmol/L (98-107)
[2022-02-15 06:27] LABS: Anion Gap 8.9 mEq/L (5-15); Blood Urea Nitrogen 42 mg/dl (9-20); Calcium 9.1 mg/dl (8.4-10.2); Carbon Dioxide 21 mmol/L (22.0-30.0); Creatinine Clearance Estimated 38 mL/min (50-200); Estimated Glomerular Filt Rate 26 ml/min (>60); GFR (African American) 32 ML/MIN (>60); Glucose 107 mg/dl (74-100)
[2022-02-15 06:43] LABS: POC Glucose,Bedside 105 (70-110)
[2022-02-15 06:43] LABS: POC Glucose,Bedside 108 (70-110)
--- NOTE | 2022-02-15 06:51 | PC.NURSE ---
pt's VSS, pt c/o pain 10/10 throughout shift with prn meds being given, pt has luis wrap on right BKA stump CDI, pt able to sit up on side of bed to use urinal independently, pt having adequate UOP
--- NOTE | 2022-02-15 07:54 | HMH.DCSUM ---
General - General Admission date:: 02/08/22 Discharge date: 02/15/22 HPI HPI: 66-year-old white male who is recently been a resident of the [facility] facility for rehabilitation after a forefoot amputation secondary to peripheral vascular disease and infection and a hospital stay here at [facility] in January of this year. Patient has been doing well at [facility] but yesterday noted that he was extremely weak and blood counts were done which revealed hemoglobin in the 6 g range. Transferred to the emergency department. On further history patient notes about a week ago he had a couple of days of dark stool that were very black. He attributed some diet change and also the fact that he has recently had COVID infection which was extremely mild from a respiratory standpoint but made him very weak and he thought may have changed his diet little bit. In the emergency department here he was found to have significant anemia, foot had some evidence of redness and infectious changes per the ER note, he was admitted for transfusion, further evaluation of his anemia and his foot situation. Hospital Course Hospital Course: 66-year-old male with multiple mobilities. Presented with blood loss anemia persistent gangrene/osteomyelitis of his right foot and heel. Initiated on broad-spectrum antibiotics. Podiatry and orthopedics consulted and involved in care. Plan for amputation today. Patient stable, little apprehensive about surgery but states he understands needs to be done. Problems addressed as follows: Blood loss anemia -Status post transfusion x4 units through hospital course. Responded well. Hemoglobin stable this morning at 8. - appreciate surgery performing EGD. Patient on PPI. Appears to have had no further blood loss and hemoglobin is stable after transfusion. -Monitor hemoglobin daily. Transfusion threshold less than 7. -Needs repeat labs at the beginning of next week. Recommend obtaining a CBC, CMP. Gangrene/osteomyelitis of foot and heel. -Podiatry and Ortho consulted, appreciate their recommendations. -Status post BKA on 04/14. Tolerated procedure well. Still having some phantom pain but pain well controlled on current regimen. We will continue antibiotics given severity of infection prior to amputation. Plan to complete next Friday on 02/20. Cefepime 2 g twice daily Sub-acute ANI on chronic CKD Contrast-induced nephropathy -Creatinine stable in the mid 2 range. Monitor daily. Recommend renally dosing medication. Medically stable for transfer back [facility]. We will follow along once he is [facility] the jail. Objective Vital signs: Temp Pulse Resp BP Pulse Ox 98 F 72 17 136/68 96 02/15/22 04:00 02/15/22 04:00 02/15/22 04:00 02/15/22 04:00 02/15/22 04:00 Narrative: - Constitutional no acute distress, pale, pleasant, talkative, alert, oriented x3. - *Routine HEENT Exam Head: Present: normocephalic Eye: Present: EOMI, PERRL ENT: Present: mucous membranes moist - *Routine Neck Exam Present: supple. Absent: lymphadenopathy - *Routine Respiratory Exam Present: CTA bilaterally - *Routine Cardiovascular Exam Present: RRR, murmur - *Routine Abdominal Exam Present: soft, normoactive bowel sounds. Absent: tenderness - *Routine Extremities Exam Absent: cyanosis, clubbing, edema; Right leg in post op bandage, s/p BKA. - *Routine Skin Exam Present: warm. Absent: rash Results Labs on day of discharge: Labs from last 24 hours 02/15/22 02/15/22 02/15/22 06:03 05:43 05:43 WBC 7.4 RBC 2.77 L Hgb 8.0 L Hct 24.5 L MCV 88.6 MCH 29.0 MCHC 32.8 RDW 15.3 Plt Count 306 MPV 9.6 Neut % (Auto) 73.5 Lymph % (Auto) 16.1 Boundary % (Auto) 7.5 Eos % (Auto) 2.3 Baso % (Auto) 0.6 Neut # (Auto) 5.5 Lymph # (Auto) 1.2 Boundary # (Auto) 0.6 Eos # (Auto
[2022-02-15 08:00] VITALS: BP 140/66; PULSE 75; RESP 26; TEMP 36.6; O2SAT 98
--- NOTE | 2022-02-15 10:00 | HMH.ORTHPN ---
Subjective Date: 02/15/22 Time: 09:45 Principal diagnosis: Right foot gangrene Interval history: Mr. Hernandez is a 66-year-old male patient admitted to the inpatient service following an uneventful right BKA performed by Dr. Whitman 02/12/2022. Today he is postop day #3. This morning the patient is lying comfortably in bed. He reports pain in his residual right limb as to be expected at this stage, but states that it is well controlled with as needed pain medication and rest. He reports that he is eating and drinking well denies any episodes of nausea or vomiting. No history of any fevers, chills, or rigors. He reports that he has transferred from the bed to a wheelchair and that this is going well. He also reports attempting to walk with the use of a walker and assistance from therapy, but states that this made him feel unsteady and nervous. He denies any other symptoms or concerns at this time. PN: Obj Ex Vital signs: Temp Pulse Resp BP Pulse Ox 97.9 F 75 26 H 140/66 98 02/15/22 08:00 02/15/22 08:00 02/15/22 08:00 02/15/22 08:00 02/15/22 08:00 - Constitutional no acute distress, cooperative - Routine HEENT Exam Head: Present: normocephalic, atraumatic Eye: Present: EOMI, PERRL ENT: Present: mucous membranes moist - Routine Neck Exam Present: supple, full ROM, trachea midline. Absent: JVD, lymphadenopathy - Routine Respiratory Exam Absent: accessory muscle use, respiratory distress Comments: Symmetric chest movement, able to speak in complete sentences - Routine Cardiovascular Exam Present: RRR Comments: Normal peripheral pulses - Routine Abdominal Exam Present: soft. Absent: tenderness - Routine Extremities Exam Comments: Upon examination of the right residual limb: Dressings present over the right residual limb are clean, dry, and intact. No evidence of drainage or bleeding noted. Thigh and leg compartments are soft and nontender; no clinical evidence of DVT noted. - Routine Skin Exam Present: intact, warm, normal turgor. Absent: cyanosis, erythema, lesions, jaundice - Routine Neurological Exam Present: alert, oriented X3, CN II-XII intact, moving all extremities, normal tone, normal speech. Absent: sensory deficit, motor deficit, altered mental status - Routine Psychiatric Exam Present: normal affect, cooperative Progress Note: A&P (1) Below-knee amputation of right lower extremity Status: Acute (2) Anemia Status: Acute (3) Occult blood positive stool Status: Acute (4) Partial traumatic amputation of right foot Status: Acute (5) Right foot infection Status: Acute (6) Diabetes Status: Acute (7) ETOH abuse Status: Acute (8) New onset type 2 diabetes mellitus Status: Acute (9) Peripheral arterial disease with history of revascularization Status: Acute (10) Foot osteomyelitis, right Status: Acute (11) Gangrene of right foot Status: Acute (12) Gas gangrene Status: Acute Assessment and Plan for All Diagnoses:: Rounded with Dr. Whitman; we have discussed the clinical findings and progress with the patient. Overall he is doing well from orthopedic standpoint this morning and may be discharged when medically appropriate. His surgical drain was removed yesterday afternoon and dressings present over the right residual limb are clean, dry, and intact this morning. Continue PT/OT for left-sided transfers; patient may weight-bear on the left lower extremity for transfers to a wheelchair and/or bedside chair only. Remain nonweightbearing on the right residual lower extremity. We have advised the patient that ambulating with a walker is likely not suitable for him at this stage, as it will be difficult for him to maintain balance on one foot. Continue outpatient IV antibiotics. Continue rest, ice, and pain medication as needed. Case management team coordinating discharge planning; patient is tentatively being discharged tod
--- NOTE | 2022-02-15 10:12 | PC.NURSE ---
Called [facility] facility to give report, line was disconnected after transfer to nurses station.
--- NOTE | 2022-02-15 10:23 | PC.NURSE ---
Gave report to vivian at [facility]. Patient stated he needed to transfer via ambulance
--- NOTE | 2022-02-18 15:54 | CARE MANAGER ---
Called and spoke with [facility] today. Patient is doing well and has no known needs at this time.
== END 2022-02-15 11:44 | disposition home or self-care (01) | DRG 239 ==
LOC: ER 19:51 → 2ND 20:02
PROVIDERS: Internal Medicine Adolescent Medicine; Orthopaedic Surgery; Surgery; Admitting Provider Family Medicine; Emergency Provider Emergency Medicine; PCP Internal Medicine Adolescent Medicine; Visit Provider Internal Medicine Adolescent Medicine
PROC: 0DJ08ZZ Inspection of Upper Intestinal Tract, Via Natural or Artificial Opening Endoscopic (ICD-10-PCS; CPT 43235; principal; 2022-02-09 09:30)
PROC: (CPT 27880; principal; 2022-02-12 14:15)
DX: E11.52 Type 2 diabetes mellitus with diabetic peripheral angiopathy with gangrene (principal); A48.0 Gas gangrene; U07.1 COVID-19; I13.0 Hypertensive heart and chronic kidney disease with heart failure and stage 1 through stage 4 chronic kidney disease, or unspecified chronic kidney disease; M86.9 Osteomyelitis, unspecified; D50.0 Iron deficiency anemia secondary to blood loss (chronic); E11.22 Type 2 diabetes mellitus with diabetic chronic kidney disease; Z79.01 Long term (current) use of anticoagulants; N18.9 Chronic kidney disease, unspecified; E11.621 Type 2 diabetes mellitus with foot ulcer; L97.519 Non-pressure chronic ulcer of other part of right foot with unspecified severity; Z89.431 Acquired absence of right foot; Z87.891 Personal history of nicotine dependence; I50.9 Heart failure, unspecified; F10.10 Alcohol abuse, uncomplicated; E11.69 Type 2 diabetes mellitus with other specified complication; Z79.84 Long term (current) use of oral hypoglycemic drugs
CPT/HCPCS: 43239; 27880; 36415; 73560; 73620; 73700; 80048; 80053; 80202; 82272; 82607; 82728; 82746; 82962; 83540; 83550; 83605; 84145; 85014; 85018; 85025; 85610; 85651; 85730; 86140; 86850; 87040; 87070; 87075; 87077; 87186; 87205; 88305; 88307; 88311; 97110; 97162; 97165; 97530; 99285; C9803; G0328; J2405; P9016; U0003; U0005

== ENCOUNTER → 2022-02-25 08:32 | Outpatient (CLI) | payer MEDICARE, SELFPAY ==
--- NOTE | 2022-02-25 08:33 | FL_ITS ---
FINAL REPORT CLINICAL HISTORY: .ANEMIA 6:02 FLUORO TIME FINDINGS: UPPER GI WITH SBFT HISTORY: . Anemia. PROCEDURE: The patient ingested barium. Effervescent crystals were also administered. Spot and overhead films were obtained. Additional barium was administered for a SBFT. FINDINGS: UGI: The esophagus is normal. There is a small sliding typehiatal hernia. There is no gastroesophageal reflux. Peristalsis is normal.. There is nonspecific mild prominence to the rugal folds, likely related to nondistention. The duodenal bulb is normal. SBFT: The timber setter film is normal. There is no evidence of obstruction. The mucosal fold pattern is normal. The terminal ilium is normal. FLUOROSCOPY TIME: 6 minutes 2 seconds. 20 radiographs were obtained. IMPRESSION: Small sliding-type hiatal hernia. Unremarkable small bowel follow-through. Films reviewed , interpreted and dictated by Dr. Chavez. Transcribed by Michael Castaneda PA-C. Reviewed, Interpreted and Dictated by [place] Chavez MD Transcribed by NADEEM Jacobo Authenticated and . [facility]
== END ==
PROVIDERS: PCP Internal Medicine Adolescent Medicine; Visit Provider Surgery
DX: D50.0 Iron deficiency anemia secondary to blood loss (chronic) (principal)
CPT/HCPCS: 74246; 74248

== ENCOUNTER → 2022-03-08 13:24 | Outpatient (CLI) | payer MEDICARE, SELFPAY ==
--- NOTE | 2022-03-08 13:32 | XR_ITS ---
FINAL REPORT CLINICAL HISTORY: rt BKA january 07 COMPARISON: February 12, 2022 FINDINGS: Three views of the right knee reveal changes from below the knee amputation. There is soft tissue calcification adjacent to the distal tibia and fibula. There are mild degenerative changes at the knee. There is no acute bony abnormality. IMPRESSION: Status post below the knee amputation. Reviewed, Interpreted and Dictated by Geovanny Rogers III, MD Transcribed by Angel Borjas Authenticated and [facility]
== END ==
PROVIDERS: PCP Internal Medicine Adolescent Medicine; Visit Provider Orthopaedic Surgery
DX: Z89.511 Acquired absence of right leg below knee (principal); M25.561 Pain in right knee
CPT/HCPCS: 73562